=== PATIENT | female | born 1980 ===

== ENCOUNTER → 2021-02-28 09:34 | Outpatient (BNVA) | payer MEDICAID, SELFPAY | PROVIDERS: Visit Provider Physician Assistant ==

== ENCOUNTER → 2021-03-07 08:43 | Outpatient (BNVA) | payer MEDICAID, SELFPAY | PROVIDERS: Visit Provider Surgery ==

== ENCOUNTER 2021-03-08 08:25 | Outpatient (REF) | payer MEDICAID, SELFPAY ==
--- NOTE | ~2021-03-08 | XR_ITS ---
EXAMINATION: XR CHEST CLINICAL INFORMATION: Bariatric service evaluation. E66.01 COMPARISON: None TECHNIQUE: 2 views of the chest were obtained. FINDINGS: The lungs are clear. There is no airspace consolidation or effusion. The costophrenic sulci are well-defined. The heart is normal in size. The hilar and mediastinal contours and bony structures are unremarkable. XR/XR chest 2V IMPRESSION: Unremarkable examination.
--- NOTE | 2021-03-08 09:09 | ECG_ITS ---
Test Reason : E66.01 Blood Pressure : / mmHG Vent. Rate : 066 BPM Atrial Rate : 066 BPM P-R Int : 160 ms QRS Dur : 080 ms QT Int : 424 ms P-R-T Axes : 039 046 036 degrees QTc Int : 444 ms Normal sinus rhythm Normal ECG No previous ECGs available Referred By: Miguel Lemons Electronically Signed By:ASHISH FRAZIER
[2021-03-08 09:43] LABS: MANUAL DIFF FLAG NO
[2021-03-08 09:49] LABS: Basophils Percent Auto 0.7 % (0-2); Eosinophils Absolute Auto 0.2 X10*3/uL (0.0-0.4); Eosinophils Percent Auto 4.2 % (0-4); Hematocrit 36.5 % (37-47); Hemoglobin 11.7 g/dl (12.0-16.0); Imm Gran Abs Auto 0.01 X10*3/uL (0.00-0.03); Imm Gran Pct Auto 0.2 % (0.0-0.4); Lymphocytes Absolute Auto 1.7 X10*3/uL (1.2-4.9); Lymphocytes Percent Auto 30.1 % (20-40); Mean Corpuscular HGB Conc 32.1 g/dl (31.0-35.0); Mean Corpuscular Hemoglobin 28.9 pg (27.0-33.0); Mean Corpuscular Volume 90.1 fL (80-98); Monocytes Absolute Auto 0.6 X10*3/uL (0.1-1.2); Monocytes Percent Auto 10.4 % (2-11); Neutrophils Absolute Auto 3.2 X10*3/uL (2.0-8.3); Neutrophils Percent Auto 54.4 % (45-73); Platelet Count 228 X10*3/uL (160-400); Red Blood Count 4.05 X10*6/uL (4.20-5.50); Red Cell Distribution Width 14.1 % (11.0-16.0); White Blood Count 5.8 X10*3/uL (4.8-10.8)
[2021-03-08 10:02] LABS: Estimated Average Glucose 117 mg/dL; Hemoglobin A1C 116.9153 umol/L; Hemoglobin A1c % 5.7 %
[2021-03-08 10:10] LABS: Alanine Aminotransferase 20 U/L (0-31); Alkaline Phosphatase 46 U/L (39-117); Anion Gap 11 (12-20); Aspartate Amino Transferase 17 U/L (5-31); Bilirubin Total 0.5 mg/dL (0.0-1.0); Blood Urea Nitrogen 18 mg/dL (9-16); C Reactive Protein 0.14 mg/dL (< or = 0.50); Calcium 9.1 mg/dL (8.4-10.2); Carbon Dioxide 26 mmol/L (22-29); Chloride 107 mmol/L (96-108); Cholesterol 207 mg/dL; Estimated Glomerular Filt Rate > 60; Glucose Random 103 mg/dL (60-115); HDL Cholesterol 52 mg/dL; LDL Cholesterol Calculated 143 mg/dl; Sodium 140 mmol/L (135-145); Triglycerides 63 mg/dL
[2021-03-08 10:23] LABS: Ferritin 26 ng/mL (10-122); TSH reflex Free T4 1.06 uIU/mL (0.32-4.0); Vitamin D 25-OH Total 14.6 ng/mL (>30)
[2021-03-08 11:00] LABS: Folate 13.2 ng/mL (> or = 4.0); Vitamin B12 403 pg/mL (200-900)
[2021-03-09 09:12] LABS: Insulin Level Total 18.3 uIU/mL
[2021-03-09 12:46] LABS: Calcium (PTHI) 9.1 mg/dL (8.6-10.2); PTHI 42 pg/mL (14-64)
[2021-03-09 13:36] LABS: H Pylori Breath Test DETECTED (NOT DETECTED)
[2021-03-12 01:26] LABS: Zinc 77 mcg/dL (60-130)
[2021-03-12 13:01] LABS: Vitamin B1 12 nmol/L (8-30)
[2021-03-13 10:32] LABS: Vitamin A 35 mcg/dL (38-98)
== END 2021-03-08 08:26 | disposition home or self-care (01) ==
LOC: HO.LAB 08:25
PROVIDERS: Absent Provider Surgery; PCP Registered Nurse; Visit Provider Physician Assistant
DX: E66.01 Morbid (severe) obesity due to excess calories (principal)
CPT/HCPCS: 36415; 71046; 80053; 80061; 82306; 82607; 82728; 82746; 83013; 83036; 83525; 83970; 84425; 84443; 84590; 84630; 85025; 86140; 93005

== ENCOUNTER → 2021-03-21 14:15 | Outpatient (BNVA) | payer MEDICAID, SELFPAY | PROVIDERS: PCP Registered Nurse; Visit Provider Dietitian, Registered ==

== ENCOUNTER → 2021-04-09 08:19 | Outpatient (BNVA) | payer MEDICAID, SELFPAY | PROVIDERS: PCP Registered Nurse; Visit Provider Surgery ==

== ENCOUNTER → 2021-04-11 08:09 | Outpatient (BNVA) | payer MEDICAID, SELFPAY | PROVIDERS: PCP Registered Nurse; Visit Provider Dietitian, Registered ==

== ENCOUNTER → 2021-05-01 08:08 | Outpatient (BNVA) | payer MEDICAID, SELFPAY | PROVIDERS: PCP Registered Nurse; Visit Provider Surgery ==

== ENCOUNTER → 2021-05-03 08:13 | Outpatient (BNVA) | payer MEDICAID, SELFPAY | PROVIDERS: PCP Registered Nurse; Visit Provider Dietitian, Registered | DX: E66.01 Morbid (severe) obesity due to excess calories (principal) | CPT/HCPCS: 97802 ==

== ENCOUNTER → 2021-06-15 08:29 | Outpatient (BNVA) | payer MEDICAID, SELFPAY | PROVIDERS: PCP Registered Nurse; Visit Provider Surgery ==

== ENCOUNTER → 2021-06-25 08:15 | Outpatient (BNVA) | payer MEDICAID, SELFPAY | PROVIDERS: PCP Registered Nurse; Visit Provider Dietitian, Registered | DX: E66.9 Obesity, unspecified (principal) | CPT/HCPCS: 97803 ==

== ENCOUNTER → 2021-07-16 08:02 | Outpatient (BNVA) | payer MEDICAID, SELFPAY | PROVIDERS: PCP Registered Nurse; Referring Provider Registered Nurse; Visit Provider Dietitian, Registered ==

== ENCOUNTER 2021-09-04 11:47 | Outpatient (REF) | payer MEDICAID, SELFPAY ==
[2021-09-06 12:28] LABS: H Pylori Breath Test Negative (Negative)
== END 2021-09-04 11:48 | disposition home or self-care (01) ==
LOC: CF 11:47
PROVIDERS: Visit Provider Physician Assistant
DX: Z11.0 Encounter for screening for intestinal infectious diseases (principal)
CPT/HCPCS: 36415; 83013; 99211

== ENCOUNTER → 2021-09-18 08:03 | Outpatient (BNVA) | payer MEDICAID, SELFPAY | PROVIDERS: PCP Registered Nurse; Visit Provider Dietitian, Registered ==

== ENCOUNTER 2021-09-25 09:04 | Outpatient (REF) | payer MEDICAID, SELFPAY ==
--- NOTE | ~2021-09-25 | FL_ITS ---
EXAMINATION: XR GI SERIES CLINICAL INFORMATION: Obesity COMPARISON: None TECHNIQUE: Upper GI was performed using thin and thick barium and effervescent granules. FINDINGS: Esophageal motility is normal. No hernia or reflux is seen. The stomach and duodenum are normal. No fold thickening, mass, ulcer or stricture is seen. FLUOROSCOPY TIME: 0.3 minutes DOSE AREA PRODUCT: 4 love per centimeter squared. 16 saved fluoroscopic images. FL/FL upper GI series IMPRESSION: Unremarkable examination.
--- NOTE | ~2021-09-25 | US_ITS ---
EXAMINATION: US COMPLETE ABDOMEN WITH LIVER ELASTOGRAPHY CLINICAL INFORMATION: Obesity COMPARISON: None. TECHNIQUE: Real-time imaging of the abdominal viscera. Noninvasive ultrasound liver fibrosis assessment is performed using Matt ElastPQ point quantification shear wave elastography (pSWE) with a C5-2 MHz transducer. Multiple elastography samples are obtained. FINDINGS: PANCREAS: Normal. The visualized pancreatic head and body are normal in appearance. The remainder of the pancreas is obscured from visualization by the overlying bowel gas. ABDOMINAL AORTA: The proximal and distal aortic segments are normal in caliber. INFERIOR VENA CAVA: Visualized portions are normal. LIVER: There is diffuse increased echogenicity of the liver consistent with fatty infiltration. No focal mass is appreciated. No intrahepatic bile duct dilatation is seen. The right lobe measures 12.3 cm in length. The left lobe measures 7.8 cm in length. Portal flow is hepatopedal Shear wave liver elastography median stiffness is 1.71 m/s (reference: normal median stiffness is 1.3 m/s or less). IQR/median stiffness to assess sampling precision is 0.16 (reference: good quality data set is IQR/median stiffness of 0.15 or less). GALLBLADDER: Normal. The gallbladder is physiologically distended without evidence of stones, sludge, polyps, wall thickening or pericholecystic fluid. COMMON BILE DUCT: Normal in caliber measuring 0.5 cm in diameter. RIGHT KIDNEY: Normal. No hydronephrosis. No renal calculi or focal parenchymal lesions. The kidney measures 9.3 cm in maximum dimension. LEFT KIDNEY: Normal. No hydronephrosis. No renal calculi or focal parenchymal lesions. The kidney measures 10.4 cm in maximum dimension. SPLEEN: Normal. The spleen measures 10.7 cm in maximum dimension. FREE FLUID: None. US/US abdomen comp w elastography IMPRESSION: 1. Increased echogenicity of the liver consistent with fatty infiltration. 2. Liver elastography: Although measurements are suggestive of compensated advanced chronic liver disease, there is statistical variability of the sampling which decreases accuracy. REFERENCE: Society of Radiologists in Ultrasound Liver Stiffness Thresholds (2019): LIVER STIFFNESS THRESHOLDS: *Liver Stiffness equal or less than 1.3 m/s: High probability of being normal. *Liver Stiffness less than 1.7 m/s: In the absence of other known clinical signs, rules out compensated advanced chronic liver disease. *Liver Stiffness 1.7-2.1 m/s: Suggestive of compensated advanced chronic liver disease but need further test for confirmation. *Liver Stiffness over 2.1 m/s: Rules in compensated advanced chronic liver disease. *Liver Stiffness over 2.4 m/s: Suggestive of clinically significant portal hypertension. QUALITY OF DATA SET: *IQR/Median value equal or less than 0.15 implies a quality data set. *IQR/Median value over 0.15 implies a poor quality data set. SIGNIFICANT CHANGE FROM PRIOR EXAM: Significant change if liver stiffness measurement is 10% or greater from prior exam. OTHER CONSIDERATIONS: The stage of liver fibrosis may be overestimated in the setting of acute hepatitis, liver inflammation, elevated liver function tests, hepatic vascular congestion, obstructive cholestasis, non-fasting state, and infiltrative diseases such as amyloidosis and lymphoma. In some patients with NAFLD, the liver stiffness thresholds for compensated advanced chronic liver disease may be lower. In causes other than viral hepatitis and NAFLD, liver stiffness thresholds are not well established.
== END 2021-09-25 09:05 | disposition home or self-care (01) ==
LOC: HO.US 09:04
PROVIDERS: Visit Provider Surgery
DX: E66.01 Morbid (severe) obesity due to excess calories (principal)
CPT/HCPCS: 74240; 76705; 76981

== ENCOUNTER → 2021-09-26 08:18 | Outpatient (BNVA) | payer MEDICAID, SELFPAY | PROVIDERS: PCP Registered Nurse; Visit Provider Surgery ==

== ENCOUNTER → 2021-09-28 08:16 | Outpatient (BNVA) | payer MEDICAID, SELFPAY | PROVIDERS: PCP Registered Nurse; Visit Provider Dietitian, Registered ==

== ENCOUNTER → 2021-10-04 08:01 | Outpatient (BNVA) | payer MEDICAID, SELFPAY | PROVIDERS: PCP Registered Nurse; Referring Provider Surgery; Visit Provider Dietitian, Registered | DX: E66.01 Morbid (severe) obesity due to excess calories (principal) | CPT/HCPCS: 97803 ==

== ENCOUNTER → 2021-10-12 09:11 | Outpatient (BNVA) | payer MEDICAID, SELFPAY | PROVIDERS: PCP Registered Nurse; Referring Provider Registered Nurse; Visit Provider Physician Assistant ==

== ENCOUNTER → 2021-10-15 08:24 | Outpatient (BNVA) | payer MEDICAID, SELFPAY | PROVIDERS: PCP Registered Nurse; Visit Provider Surgery ==

== ENCOUNTER 2021-10-25 11:18 | Inpatient (IN) | payer MEDICAID, SELFPAY ==
[2021-10-15 16:02] VITALS: BMI 39.9
[2021-10-22 10:01] LABS: MANUAL DIFF FLAG NO
[2021-10-22 10:36] LABS: Basophils Percent Auto 0.3 % (0-2); Eosinophils Absolute Auto 0.3 X10*3/uL (0.0-0.4); Eosinophils Percent Auto 3.4 % (0-4); Hematocrit 37.3 % (37.0-47.0); Hemoglobin 12.2 g/dl (12.0-16.0); Imm Gran Abs Auto 0.01 X10*3/uL (0.00-0.03); Imm Gran Pct Auto 0.1 % (0.0-0.4); Lymphocytes Absolute Auto 2.4 X10*3/uL (1.2-4.9); Lymphocytes Percent Auto 32.6 % (20-40); Mean Corpuscular HGB Conc 32.7 g/dl (31.0-35.0); Mean Corpuscular Hemoglobin 29.8 pg (27.0-33.0); Mean Corpuscular Volume 91.2 fL (80.0-98.0); Mean Platelet Volume 12.3 fL (9.4-12.3); Monocytes Absolute Auto 0.7 X10*3/uL (0.1-1.2); Monocytes Percent Auto 8.9 % (2-11); Neutrophils Absolute Auto 4.1 x10*3/uL (2.0-8.3); Neutrophils Percent Auto 54.7 % (45-73); Platelet Count 196 X10*3/uL (160-400); Red Blood Count 4.09 X10*6/uL (4.20-5.50); Red Cell Distribution Width 13.5 % (11.0-16.0); White Blood Count 7.4 X10*3/uL (4.8-10.8)
[2021-10-22 10:41] LABS: INTERNATIONAL NORM RATIO 1.1 (0.9-1.1); Prothrombin Time 12.5 SEC (9.9-13.0)
[2021-10-22 10:44] LABS: Partial Thromboplastin Time 32.2 SEC (24.1-38.0)
[2021-10-22 11:08] LABS: Estimated Average Glucose 117 mg/dL; Hemoglobin A1c % 5.7 %
[2021-10-22 11:09] LABS: Alanine Aminotransferase 18 U/L (0-31); Albumin Level 4.1 g/dL (3.5-5.0); Alkaline Phosphatase 35 U/L (39-117); Anion Gap 13 (12-20); Aspartate Amino Transferase 16 U/L (5-31); Bilirubin Total 0.5 mg/dL (0.0-1.0); Blood Urea Nitrogen 15 mg/dL (9-16); Calcium 9.4 mg/dL (8.4-10.2); Carbon Dioxide 22 mmol/L (22-29); Chloride 108 mmol/L (96-108); Cholesterol 178 mg/dL; Creatinine Clr Calc Pharmacy 99.5; Estimated Glomerular Filt Rate > 60; Glucose Random 86 mg/dL (60-115); HDL Cholesterol 46 mg/dL; LDL Cholesterol Calculated 111 mg/dl; Potassium 3.9 mmol/L (3.3-5.1); Sodium 139 mmol/L (135-145); Triglycerides 109 mg/dL
[2021-10-22 11:31] LABS: Insulin 18 uU/mL (2-29); TSH reflex Free T4 2.04 uIU/mL (0.32-4.0)
--- NOTE | 2021-10-22 15:43 | MHC.SHP ---
Pre-Procedural Eval Section A Date of Service: 10/22/21 The patient is an INPATIENT: Yes The History & Physical has been completed within 30 days and I have reviewed it.: No Section B Chief Complaint: Morbid Severe Obesity Relevant Family History (Specify if Yes): No Relevant Social History: None Present Medications: None Medical History: No relevant PMH History of Previous Operations: No relevant previous surgery Allergies: Allergies Allergy/AdvReac Type Severity Reaction Status Date / Time No Known Allergies Allergy Verified 10/15/21 14:08 Review of Systems Sugical H&P ROS: Negative: Constitution, Cardiovascular, Respiratory, Neurological, Psychiatric, Hem-Onc, Allergic/Immunologic, Gastrointestinal, Genitourinary, Musculoskeletal, Integumentary, Endocrine and Eyes/Ears/Nose/Throat Exam Surgical H&P Exam: Normal: HEENT, Normal: Heart, Normal: Lungs, Normal: Extremities, Normal: Abdomen, Normal: Skin and Normal: Neurological Plan Diagnosis/Plan: Unchanged I have reviewed the history and physical and performed a pertinent physical examination on my patient. No changes have occurred unless specified.
--- NOTE | 2021-10-24 09:20 | HO.ANESPROP2 ---
Documented by User: Aurora Rojas NP 11/02/21 14:29 HPI - Anesthesia Eval Consult details Narrative: 41yo F for Gastrectomy Sleeve, EGD, Possible Diaphragmatic Hernia, Possible Ventral Hernia, Possible open PMFSH Active Problems Active Problems: All Active Problems (Updated 10/14/21 @ 18:18 by Miguel Lemons MD) Mild depression (Acute) Vitamin D deficiency (Acute) Vitamin B12 deficiency (Acute) Anxiety (Acute) Vitamin A deficiency (Acute) H. pylori infection (Acute) Knee pain (Acute) Morbid obesity (Acute) Past Medical History Medical History (Updated 10/25/21 @ 16:53 by Irena Doherty PA-C) H. pylori infection Knee pain Liver fibrosis Morbid obesity Steatosis, liver Vitamin A deficiency Family History Family History Mother Diabetes Arthritis Father Diabetes Hypertension Hyperlipidemia Prostate cancer Sister No problems noted. Sister No problems noted. Son No problems noted. Daughter No problems noted. Daughter No problems noted. Surgical History Surgical History Hx of section Hx of tubal ligation Social History Social History Are you a primary personal care home administrator to a significant other at home: Yes (children ages 5,10,20) Do you presently have visiting nurse or other home services: No Alcohol intake: current Alcohol intake frequency: holidays/special occasions only Patient Tobacco Use Status: Never used Tobacco Meds Allergies Allergy/AdvReac Type Severity Reaction Status Date / Time No Known Allergies Allergy Verified 10/29/21 11:25 Home Medications Medication Instructions Recorded Confirmed Last Taken Type gabapentin 300 mg capsule 1 cap PO BEDTIME 10/15/21 10/29/21 Unknown History acetaminophen 500 mg capsule 1,000 mg PO Q6H PRN cap 10/29/21 10/29/21 Unknown History Exam Exam Date and Time: October 24, 2021 09 Height,Weight and Vital Signs: Height 5 ft 4 in Weight 105.687 kg Pertinent Lab Results Pertinent Lab Results: Laboratory Tests 10/22/21 10/22/21 10/22/21 09:55 09:55 09:55 WBC 7.4 RBC 4.09 L Hgb 12.2 Hct 37.3 MCV 91.2 MCH 29.8 MCHC 32.7 RDW 13.5 Plt Count 196 MPV 12.3 Immature Gran % (Auto) 0.1 Neut % (Auto) 54.7 Lymph % (Auto) 32.6 [place] % (Auto) 8.9 Eos % (Auto) 3.4 Baso % (Auto) 0.3 Lymph # (Auto) 2.4 [place] # (Auto) 0.7 Eos # (Auto) 0.3 Baso # (Auto) 0.0 Abs Immat Gran (auto) 0.01 Absolute Neuts (auto) 4.1 Absolute Nucleated RBC 0.000 Nucleated RBC % (auto) 0.0 PT 12.5 INR 1.1 APTT 32.2 Sodium 139 Potassium 3.9 Chloride 108 Carbon Dioxide 22 Anion Gap 13 BUN 15 Creatinine 0.90 Estim Creat Clear Calc 99.5 Estimated GFR > 60 Random Glucose 86 Estimat Average Glucose Hemoglobin A1c % Insulin Level 18 Calcium 9.4 Total Bilirubin 0.5 AST 16 ALT 18 Alkaline Phosphatase 35 L D C-Reactive Protein 0.10 Total Protein 7.0 Albumin 4.1 Triglycerides 109 Cholesterol 178 LDL Cholesterol, Calc 111 HDL Cholesterol 46 TSH 2.04 Blood Type Antibody Screen 10/22/21 10/22/21 09:55 09:55 WBC RBC Hgb Hct MCV MCH MCHC RDW Plt Count MPV Immature Gran % (Auto) Neut % (Auto) Lymph % (Auto) [place] % (Auto) Eos % (Auto) Baso % (Auto) Lymph # (Auto) [place] # (Auto) Eos # (Auto) Baso # (Auto) Abs Immat Gran (auto) Absolute Neuts (auto) Absolute Nucleated RBC Nucleated RBC % (auto) PT INR APTT Sodium Potassium Chloride Carbon Dioxide Anion Gap BUN Creatinine Estim Creat Clear Calc Estimated GFR Random Glucose Estimat Average Glucose 117 Hemoglobin A1c % 5.7 Insulin Level Calcium Total Bilirubin AST ALT Alkaline Phosphatase C-Reactive Protein Total Protein Albumin Triglycerides Cholesterol LDL Cholesterol, Calc HDL Cholesterol TSH Blood Type O Positive Antibody Screen NEGATIVE Narrative Narrative: EKG 02/2021 Vent. Rate : 066 BPM ? ? Atrial Rate : 066 BPM ?? P-R Int : 160 ms? QRS Dur : 080 ms ? ? QT Int : 424 ms ? ? ? P-R-T Axes : 039 046 036 degrees ?? QTc Int : 444 ms ? Normal sinus rhythm Normal ECG No previous ECGs available Assessment and Plan Assessment Anesthesia Assessment: Chart Reviewed Documented by User: Valerie Esteves MD 10/25/21 12:50 [facility] Past Medical History Medical History (Updated 10/25/21 @ 16:53 by Irena Doherty PA-C) H. pylori infection Knee pain Liver fibrosis Morbid obesity Steatosis, liver Vitamin A deficiency Family History Family History Mother Diabetes Arthritis Father Diabetes Hypertension Hyperlipidemia Prostate cancer Sister No problems noted. Sister No problems noted. Son No problems noted. Daughter No problems noted. Daughter No problems noted. Family history of problems with anesthesia: No Surgical History Surgical History Hx of section Hx of tubal ligation History of Problems with Anesthesia: No Social History Social History Are you a primary personal care home administrator to a significant other at home: Yes (children ages 5,10,20) Do you presently have visiting nurse or other home services: No Alcohol intake: current Alcohol intake frequency: holidays/special occasions only Patient Tobacco Use Status: Never used Tobacco Meds Allergies Allergy/AdvReac Type Severity Reaction Status Date / Time No Known Allergies Allergy Verified 10/29/21 11:25 Home Medications Medication Instructions Recorded Confirmed Last Taken Type gabapentin 300 mg capsule 1 cap PO BEDTIME 10/15/21 10/29/21 Unknown History acetaminophen 500 mg capsule 1,000 mg PO Q6H PRN cap 10/29/21 10/29/21 Unknown History Exam Height,Weight and Vital Signs: Height 5 ft 4 in Weight 105.687 kg Vital Signs Temp Pulse Resp BP Pulse Ox 10/25/21 11:44 98.1 F 81 16 127/78 98 Pertinent Lab Results Pertinent Lab Results: Laboratory Tests 10/22/21 10/22/21 10/22/21 09:55 09:55 09:55 WBC 7.4 RBC 4.09 L Hgb 12.2 Hct 37.3 MCV 91.2 MCH 29.8 MCHC 32.7 RDW 13.5 Plt Count 196 MPV 12.3 Immature Gran % (Auto) 0.1 Neut % (Auto) 54.7 Lymph % (Auto) 32.6 [place] % (Auto) 8.9 Eos % (Auto) 3.4 Baso % (Auto) 0.3 Lymph # (Auto) 2.4 [place] # (Auto) 0.7 Eos # (Auto) 0.3 Baso # (Auto) 0.0 Abs Immat Gran (auto) 0.01 Absolute Neuts (auto) 4.1 Absolute Nucleated RBC 0.000 Nucleated RBC % (auto) 0.0 PT 12.5 INR 1.1 APTT 32.2 Sodium 139 Potassium 3.9 Chloride 108 Carbon Dioxide 22 Anion Gap 13 BUN 15 Creatinine 0.90 Estim Creat Clear Calc 99.5 Estimated GFR > 60 Random Glucose 86 Estimat Average Glucose Hemoglobin A1c % Insulin Level 18 Calcium 9.4 Total Bilirubin 0.5 AST 16 ALT 18 Alkaline Phosphatase 35 L D C-Reactive Protein 0.10 Total Protein 7.0 Albumin 4.1 Triglycerides 109 Cholesterol 178 LDL Cholesterol, Calc 111 HDL Cholesterol 46 TSH 2.04 Blood Type Antibody Screen 10/22/21 10/22/21 09:55 09:55 WBC RBC Hgb Hct MCV MCH MCHC RDW Plt Count MPV Immature Gran % (Auto) Neut % (Auto) Lymph % (Auto) [place] % (Auto) Eos % (Auto) Baso % (Auto) Lymph # (Auto) [place] # (Auto) Eos # (Auto) Baso # (Auto) Abs Immat Gran (auto) Absolute Neuts (auto) Absolute Nucleated RBC Nucleated RBC % (auto) PT INR APTT Sodium Potassium Chloride Carbon Dioxide Anion Gap BUN Creatinine Estim Creat Clear Calc Estimated GFR Random Glucose Estimat Average Glucose 117 Hemoglobin A1c % 5.7 Insulin Level Calcium Total Bilirubin AST ALT Alkaline Phosphatase C-Reactive Protein Total Protein Albumin Triglycerides Cholesterol LDL Cholesterol, Calc HDL Cholesterol TSH Blood Type O Positive Antibody Screen NEGATIVE Laboratory Results - last 24 hr 10/25/21 11:28 COVID-19 (CONNIE) Negative COVID-19 Clin Com See Note Airway Mallampati Class: II TM Dist: >3cm Neck ROM: Full Loose/Missing/Broken Teeth: No Heart: RRR Lungs: CTAB Assessment and Plan Assessment Anesthesia Assessment: Anesthesia Plan Discussed Final Anesthetic Review Family History of Problems with Anesthesia: No History of Problems with Anesthesia: No NPO: Yes ASA Class: III Final Preanesthetic Review: No Changes in Pt Med Stat, Meds/Allgs Chart Reviewed, Consent Obtained/Reviewed and Anes Risks/Benef Reviewed Patient Risk: Intermediate Procedure Risk: Intermediate Assessment/Block/Sedation in SS: Assess/Block/Sedation-SS Anesthetic Plan Anesthetic Plan: GA Disposition: Standard PACU and Inp. Admit - Standard Bed
[2021-10-25] VITALS (22 sets, daily range): BP systolic 112–142; BP diastolic 56–92; PULSE 81–110; RESP 16–24; TEMP 36.4–36.9; O2SAT 97–100
--- NOTE | ~2021-10-25 | XR_ITS ---
EXAMINATION: XR CHEST CLINICAL INFORMATION: Crepitus. COMPARISON: Chest x-ray on 03/08/2021 TECHNIQUE: Frontal view of the chest was obtained. FINDINGS: The cardiomediastinal silhouette is normal in size. There is linear focus of air along the left heart border suspicious for pneumomediastinum. The lung volumes are diminished. No focal areas of consolidation. No pleural effusions or pneumothoraces. There is diffuse subcutaneous air within the chest wall and neck, right greater than left. XR/XR chest 1V IMPRESSION: 1. Suspicion for pneumomediastinum. 2. Diffuse chest wall and neck subcutaneous air. Urgent findings were discussed with Dr. Friedman at 5:30pm.
[2021-10-25] MEDS: Lactated Ringers 1,000 ML 999 ML IV (12:08)
[2021-10-25] MEDS: Lactated Ringers 1,000 ML 100 ML IVCONT ×2 (12:08→19:31)
[2021-10-25 12:10] LABS: COVID-19 Test Negative (Negative); IDNOW Serial# 9DD0AD1C
--- NOTE | 2021-10-25 13:07 | P.BOP_ITS ---
Brief Operative Note Date of Service: 10/25/21 Pre-op diagnosis: Morbid obesity and comorbidities (see below) Post-op diagnosis: same Procedure: INITIAL PATIENT BMI ON PRESENTATION AT OUR OFFICE: 44.5 kg/m2 LAST BMI BEFORE SURGERY: 43 kg/m2 COMORBIDITIES: knee pain, liver steatosis, liver fibrosis The patient participated in an intensive weekly lifestyle ?intervention and exercise program during which the patient ?has lost between the initial office visit and the last preoperative visit 26.2 lbs, or 10.08% of initial actual body weight. The patient met the BMI-criteria for bariatric surgery based on the BMI on initial presentation. The patient should not be penalized for achieving such weight loss because ?it is not sustainable long-term without surgical intervention and it was achieved in preparation for bariatric surgery ?under my direction and based on my published research ([email or web address] and? [email or web address])62630-[email or web address]/pdf ) ?that a 10% preoperative weight loss improves long-term weight loss after surgery and reduces perioperative complications.? Insurance carriers such as [facility] have endorsed my recommendations ?and have included in their policies criteria to include a 10% preoperative weight loss requirement. PROCEDURE: Esophago-gastroscopy, laparoscopic repair of incarcerated diaphragmatic hernia, laparoscopic lysis of adhesions, laparoscopic sleeve gastrectomy and laparoscopic gastropexy INDICATIONS: This is a 41 year-old female who was electively scheduled for laparoscopic, possibly open sleeve gastrectomy. The risks and complications of the procedure were discussed with the patient in advance, particularly the possibility of ; pulmonary embolism; staple line leak; bleeding; GERD; cardiac, pulmonary, or renal complications; as well as long-term problems such as insufficient weight loss, vitamin deficiency, strictures, or ulcers. The patient understood all the risks, and was in agreement to proceed with surgery. DESCRIPTION OF PROCEDURE: After informed consent was obtained from the patient, the patient was given preoperative antibiotics, and was transferred to the operating room. After successful induction of general anesthesia, pneumatic compressive devices were placed on both lower extremities. An upper endoscopy was performed next. The oropharynx and esophagus appeared to be within normal limits. There was a large diaphragmatic hernia present that was not reported at the preoperative upper GI. The stomach was entered. Then after all fluid and air were suctioned and the stomach was fully decompressed, the scope was withdrawn and secured in the mid esophagus. The patient was then prepped and draped in the usual sterile manner, and abdominal access was established at the right upper quadrant with the Celi technique. A 12 mm blunt port was inserted, and the abdomen was insufflated with CO2 to a pressure of 15 mmHg. Under direct visualization, additional ports were placed, specifically two 5 mm Versi-step ports to the left upper quadrant, and a 5 mm Versi-Step port to the right upper quadrant. 1% lidocaine plain was used to infiltrate all port sites as well as all fascia defects. Following that, the patient was placed in a steep reverse Trendelenburg position. An additional 5 mm port was placed to the right flank for the Mediflex retractor that was used to retract the left lobe of the liver. The gastro-esophageal fat pad was opened with the ultrasonic device (Thunderbeat, Olympus) and the anterior esophagus and hiatus were exposed. The angle of His was opened with the ultrasonic device the fundus of the stomach from any diaphragmatic and splenic attachments. I then opened the gastrocolic ligament between the transverse colon and the greater curvature of the stomach with the ultrasonic device to enter the lesser sac and facilitate the ligation of the short gastric vessels. I started at a mid-point along the greater curvature and using the Thunderbeat, all short gastric vessels were divided all the way to the angle of His until the left david was completely dissected at its entirety. I then divided the gastro-colic ligament distally to a distance of about 3-4 cm proximal to the esophagus. There were extensive congenital adhesions between the pancreas and posterior gastric wall. Those were lysed completely with the ultrasonic device. Adhesiol ysis took approximately 45 min to complete. :There was an obvious significant-sized incarcerated hiatal hernia. I continued dissecting along the hiatus toward the left david and the angle of His. I fully mobilized the fat pad that was incarcerated in the hernia. I then continued by dissecting even further into the posterior retro-esophageal space all the way to the angle of His. I continued to mobilize the esophagus into the mediastinum circumferentially. Both vagal nerves were seen and preserved. Dissection was very challenging due to the size of the hernia, large and floppy liver and a large left replaced hepatic artery with additional branches that were recognized and preserved. Despute these difficulties, I was able to have at least 3 to 5 cm of esophagus into the abdomen.? After I completely mobilized the esophagus from both the left and right david and I had a good mobilization of the esophagus circumferentially, I closed the hernia defect with four interrupted #0 Surgidac sutures using the Endo Stitch device, one of which was placed posterior and three sutures anterior to the esophagus. The hernia repair significantly prolonged the operation with a total operative time of 3 hours. ? The stomach was then divided transversely with one Endo SANJUANITA-45 purple, two SANJUANITA- 45 orange loads and four SANJUANITA-60 articulating orange loads using the AEON stapler and loads. Every effort was made that the gastric sleeve had a tubular shape and an even caliber throughout. Once the sleeve resection was completed, the staple line of the gastric sleeve was reinforced with Hemoclips. The resected stomach was retrieved without difficulty from the Celi port. A gastropexy was then performed in order to prevent postoperative GERD and partial gastric volvulus. Several interrupted 2.0 Surgidac sutures were placed between the sleeve's staple line and the previously divided greater omentum and gastro-colic ligament using the Endo-Stitch device. ?An upper endoscopy was performed. There was no narrowing at the GE junction. The scope was easily advanced all the way to the pylorus which was clearly visualized. There was no narrowing anywhere and the sleeve's caliber was even throughout. The sleeve's staple line was inspected and there was no evidence of ischemia, bleeding or dehiscence. At that point the gastroscope was withdrawn from the patient?s mouth while we were decompressing the bowel and the stomach from any remaining air. I looked into the lesser sac to see how the sleeve was situating and it was situating well. There was no bleeding from the staple line, spleen, or short gastric vessels. The Mediflex retractor was removed, and the undersurface of the liver was inspected and there was no bleeding. The patient was placed in supine position. I closed the fascial defect of the 12 mm port site with a figure of eight #1 Polysorb suture. Then 100 cc 0.25 % Marcaine plain with 10 mg of Dexamethasone were used to infiltrate the fascial closure as well as all skin incisions. At this point, the abdomen was deflated, all ports were removed under direct vision, and no bleeding was noted from any of the port sites. The skin incisions were irrigated with saline and were closed with 4-0 absorbable monofilament sutures. Steri-Strips and OpSites were used to cover all incisions. The patient was extubated and was transferred in stable condition to the recovery room for further care. I was present and performed all lebron parts of the procedure. Ms. Doherty was the heel sprayer first. There were no residents to assist with this case. Michael Lemons MD, PhD, FACS Surgeon: Miguel Lemons MD Anesthesia: GETA, MAC and other (TAP block) Was an Patient Coordinator used for this Procedure?: No Patient Coordinator: Irena Doherty Estimated blood loss (mL): 10 Urine output (mL): 0 (No Martinez to gravity) Pathology: other (Stomach) Condition: stable Disposition: PACU
--- NOTE | 2021-10-25 13:12 | PM.PNGS ---
Subjective Subjective Date of Service: 10/26/21 Interval history: Patient has mild incisional pain, but was able to ambulate and use the incentive spirometer. She is tolerating phase 1 bariatric diet Physical Exam Vital Signs: Vital Signs: Last Vital Signs Temp 98.1 F 10/25/21 11:44 Pulse 81 10/25/21 11:44 Resp 16 10/25/21 11:44 BP 127/78 10/25/21 11:44 Pulse Ox 98 10/25/21 11:44 BMI result Body Mass Index 39.9 GI: Inspection: Yes normal to inspection, Yes incision (clean, dry and intact) and Yes obesity Extrem: Right lower extremity: normal to inspection (no calf tenderness) Left lower extremity: normal to inspection (no calf tenderness) Objective Data Active Medications Lactated Ringer's (Lr) 1,000 mls @ 100 mls/hr IVCONT .Q10H SALEEM Last Admin: 10/25/21 12:08 Dose: 100 mls/hr Documented by: CHULA Labs CBC & Chem 7: 10/26/21 05:30 10/26/21 05:30 Labs: Laboratory Results - last 24 hr 10/25/21 11:28 COVID-19 ([facility]) Negative COVID-19 Clin Com See Note Procedures Date of Service Date of Service: 10/26/21 Progress Note: A&P Assessment and plan (1) Morbid obesity: Status: Acute Assessment and Plan: s/p laparoscopic sleeve gastrectomy, lysis of adhesions repair of diaphragmatic hernia, and gastropexy Doing well Check am labs. If OK, will discharge home? (2) Knee pain: Status: Acute (3) Anxiety: Status: Acute (4) Steatosis, liver: Status: Acute (5) Liver fibrosis: Status: Acute (6) Status post repair of paraesophageal diaphragmatic hernia: Status: Acute (7) Diaphragmatic hernia: Status: Acute (8) S/P laparoscopic sleeve gastrectomy: Status: Acute Fall Risk Details Current Medications: Current Medications Lactated Ringer's (Lr) 1,000 mls @ 100 mls/hr IVCONT .Q10H SALEEM Last Admin: 10/25/21 12:08 Dose: 100 mls/hr Documented by: Time Spent With Patient Time: Total time spent is greater than 50% in coordination of care (as documented) at patient's floor/unit and/or counseling patient: Time with patient: less than 15 minutes Quality Stroke Does the patient have a stroke diagnosis?: No VTE Prior VTE?: No VTE Risk Level:: Surgical - moderate VTE Device Contraindication: N/A - Device Ordered VTE Drug Contraindication: Treatment Not Indicated
--- NOTE | 2021-10-25 16:55 | P.DS_ITS ---
DS: Providers Provider Date of Service: 10/26/21 Date of admission: 10/25/21 11:18 Primary care physician: Maddy Weir MD DS: Diagnosis Discharge Diagnosis (1) Morbid obesity: Status: Acute (2) Knee pain: Status: Acute (3) Anxiety: Status: Acute (4) Steatosis, liver: Status: Acute (5) Liver fibrosis: Status: Acute DS: Summary Hospital Course Hospital Course: ADMITTING DIAGNOSIS: morbid obesity DISCHARGE DIAGNOSIS: same, s/p laparoscopic sleeve gastrectomy and repair diaphragmatic hernia PAST SURGICAL HISTORY: none PROCEDURE: upper endoscopy, laparoscopic sleeve gastrectomy and repair of diaphragmatic hernia hernia DISCHARGE SUMMARY: History of Present Illness: The patient is a 41 year-old woman with a BMI of 44.5 kg/m2 and associated co- morbidities as described above. The patient had extensive work-up,lost 23.4 lbs preoperatively and was electively scheduled for laparoscopic, possible open sleeve gastrectomy and gastropexy. Risks and complications of the surgery were discussed with the patient in advance, particularly the possibility of , pulmonary embolism, anastomotic leak, bleeding, bowel injury, GERD, cardiac, renal or pulmonary complications. The patient understood all the risks and was in agreement with the surgical plan. Hospital Course: The patient underwent an uneventful laparoscopic sleeve gastrectomy with gastropexy and repair of diaphragmatic hernia on the day of admission. Postoperatively, the patient was transferred to the surgical floor. The patient received IV Acetaminophen and IV dilaudid for pain control. Patient was started on bariatric phase 1 diet POD #0. On postoperative day one, the patient was feeling well without nausea, vomiting, fevers, or tachycardia. The patient had some mild incisional pain and the abdomen was soft. On the morning of postoperative day one, the patient was continued on 1 ounce of water or ice every half hour. During the day, the patient did fairly well, having some incisional pain, but able to ambulate adequately and to tolerate liquids well. Since the patient is doing well, we decided that the patient was ready to be discharged. The patient was given instructions to follow-up with me next week and to call my office for any fever over 101, persistent abdominal pain, nausea, vomiting, GERD, symptoms of DVT such as calf tenderness, or leg swelling, or pulmonary embolism such as chest pain or shortness of breath. The patient was also instructed to drink 40-60 ounces of liquids per day using the 1-ounce cups. The patient had been given prescriptions for Tylenol for pain, Zofran prn for nausea, and pantoprazole and carafate previously. The patient was encouraged to ambulate and use the incentive spirometer. The patient was allowed to shower, but no baths, and encouraged to stay active at home. All of these instructions were given to the patient personally. All questions were answered and the patient understood all instructions, the instructions were also given to the patient in print. Time Spent with Patient Time attestation: Total time spent providing and/or coordinating discharge services: Discharge coordination time: Less than 30 minutes Quality: Stroke Does the patient have a stroke diagnosis?: No Physical Exam Vital Signs: Vital Signs: Last Vital Signs Temp 98.1 F 10/25/21 11:44 Pulse 81 10/25/21 11:44 Resp 16 10/25/21 11:44 BP 127/78 10/25/21 11:44 Pulse Ox 98 10/25/21 11:44 BMI result Body Mass Index 39.9 DS: Data Data Completed and Pending Pending studies at discharge: Pending at discharge 10/25/21 15:51 Surgical [PTH] Routine Labs on day of discharge: Laboratory Results - last 24 hr 10/25/21 11:28 COVID-19 ([facility]) Negative COVID-19 Clin Com See Note Discharge Plan Discharge Anticipated Discharge Date/Time: 10/26/21 11:52 Patient Disposition: Home, Self-Care Discharge Diagnosis: s/p sleeve gastrectomy and hiatal hernia repair Referrals: Maddy Weir MD [Primary Care Provider] - 1 Week Discharge Medications: New oxycodone-acetaminophen [Percocet] 5-325 mg tablet 1 tab PO Q8H PRN (Reason: severe pain (scale score 7-10)) Qty: 10 RF: 0 Continued lorazepam 0.5 mg tablet 0.5 mg PO BID PRN (Reason: anxiety) Qty: 14 RF: 0 gabapentin 300 mg capsule 1 cap PO BEDTIME RF: 0 pantoprazole 40 mg tablet,delayed release (DR/EC) 40 mg PO DAILY Qty: 30 RF: 2 sucralfate 100 mg/mL suspension 10 ml PO BID Qty: 400 RF: 2 ondansetron HCl [Zofran] 4 mg tablet 4 mg PO Q6H Qty: 20 RF: 0 Discontinued vitamin A 10,000 unit capsule 10,000 unit PO DAILY Qty: 30 RF: 0 vitamin A palmitate 10,000 unit capsule 10,000 unit PO .COMPLEX Qty: 30 RF: 0 mecobalamin (vitamin B12) 1,000 mcg tablet,disintegrating 1,000 mcg sublingual DAILY Qty: 30 RF: 2 polyethylene glycol 3350 [Miralax] 17 gram powder in packet 17 g PO DAILY Qty: 14 RF: 0 Discharge Orders: Discharge Order (Routine); Ordered 10/26/21 Ordered By: Miguel Lemons Diet: other Activity on Discharge: No heavy lifting Stand Alone Forms: Patient Portal Discharge page Care Plan Goals: weight loss Health Concerns: morbid obesity Plan of Treatment: No tub baths, sex or returning to work until discussed at first post op appointment. No exercise, alcohol, tobacco or illegal drug use. Continue to use incentive spirometer hourly while awake. Walk in home for 5- 10 minutes every 2 hours during the first week. Continue phase 1 diet today and start phase 2 diet tomorrow morning. Follow all instructions in the bariatric handbook and call with any questions. 1. Please call your doctor or come back to the emergency room should any new symptoms arise. 2. You will receive a courtesy call from [facility] 24-48 hours after discharge. 3. Activity: abstain from alcohol, practice limited stair climbing, no bending, no driving, no exercise, no illicit substances, no lifting, no sex, no tub bath, no work. 4. Diet: continue as discussed with Dr. Lemons. 5. Dressing Change/Wound Care: Do not change or remove surgical dressings unless they are wet or soiled. 6. Call your doctor if: - Your temperature exceeds 101.5 F - You experience excessive pain or swelling - You have an unexpected reaction to medication - You have excessive bleeding - You experience continued vomiting/nausea - Your incision begins to separate - Your incision shows signs of infection such as increased redness, swelling, excessive pain, heat, or drainage (light blood or clear fluid is normal) 7. General instructions: No lifting greater than 5 lbs for the next 4 weeks[address] driving within 24 hours of taking narcotic pain medications. If you do not move your bowels in the next 2 days, please take milk of magnesia over the counter. Please follow the post op diet and do not advance your diet until you are seen in the office in about 2 weeks. Please walk around your home every hour or two to prevent blood clots from forming in your legs. You do not need to wake from sleeping to walk. Please sleep in a bed or couch to prevent kinking at the hips and knees. 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 You may shower, no hot tubs, baths or swimming pools. Please call the office with any questions or concerns such as increasing abdominal pain, fever, chills, shortness of breath, chest pain, leg pain or swelling, or redness or drainage from your incisions. Do not hesitate to contact the office with any questions at . The patient's medical history has been reviewed and they are considered low risk for post op DVT and therefore DVT prophylaxis is not considered necessary. Travel after surgery was reviewed. The patient has not disclosed any travel plans during the first 30 days after surgery and they have been advised that within the first 30 days after surgery any bus, plane, train or car travel over 2 hours in duration is contraindicated due to the possibility of developing blood clots from immobility. Any travel, needs to include periods of ambulation of 10 minutes in duration every 2 hours. The patient was instructed to discuss any plans for travel during this period with their bariatric surgeon. Assessment: stable s/p sleeve gastrectomy and hiatal hernia repair Discharge Date/Time: 10/26/21 17:00
[2021-10-25] MEDS: HYDROmorphone HCl 0.5 MG/0.5 ML SYRINGE 0.25 MG IVPUSH ×5 (17:09→23:43)
[2021-10-25] MEDS: Famotidine/PF 20 MG/2 ML VIAL IVPUSH ×2 (18:17→20:38)
--- NOTE | 2021-10-25 18:23 | PC.NURSE ---
PHLEBOTOMY AT BEDSIDE TO DRAW LABS.
--- NOTE | 2021-10-25 18:28 | PC.NURSE ---
MESSAGE FROM DR. GARCIA. REPORTS HE REVIEWED XR NORMAL AND EXPECTED PAIN. IN SURGERY PER MD. MEDIASTINUM DISSECTED TO FIX LARGE DIAPHRAGMATIC HERNIA. EXPECT CREPITUS AND PAIN. PER NAINA ROSALES, PATIENT MAY START ON PHASE I DIET AND INDICATED THAT THE CO2 WILL NEED TO RESOLVE ON ITS OWN.
[2021-10-25] MEDS: HYDROmorphone HCl 0.5 MG/0.5 ML SYRINGE IVPUSH (18:36)
[2021-10-25 18:37] LABS: Hematocrit 35.4 % (37.0-47.0); Hemoglobin 11.6 g/dl (12.0-16.0)
[2021-10-25 18:52] LABS: Anion Gap 14 (12-20); Blood Urea Nitrogen 18 mg/dL (9-16); Calcium 9.1 mg/dL (8.4-10.2); Carbon Dioxide 21 mmol/L (22-29); Chloride 107 mmol/L (96-108); Creatinine Clr Calc Pharmacy 98.3; Estimated Glomerular Filt Rate > 60; Glucose Random 130 mg/dL (60-115); Sodium 138 mmol/L (135-145)
[2021-10-25] MEDS: ondansetron HCL 4 MG/2 ML VIAL IVPUSH (19:31)
[2021-10-25] MEDS: ceFAZolin Sodium/Dextrose,Iso 2 GM/50 ML PIGGYBACK IV (19:37)
[2021-10-25] MEDS: 0.9 % Sodium Chloride Flush 3 ML SYRINGE IVFLUSH (20:39)
[2021-10-26] MEDS: LORazepam 2 MG/ML VIAL 0.25 MG IVPUSH ×3 (01:29→14:55)
[2021-10-26] MEDS: ondansetron HCL 4 MG/2 ML VIAL IVPUSH ×2 (02:56→12:36)
[2021-10-26 04:00] VITALS: BP 122/57; PULSE 86; RESP 16; TEMP 36.6; O2SAT 98
[2021-10-26] MEDS: HYDROmorphone HCl 0.5 MG/0.5 ML SYRINGE 0.25 MG IVPUSH ×2 (04:19→06:21)
[2021-10-26] MEDS: Lactated Ringers 1,000 ML 100 ML IVCONT (05:41)
[2021-10-26 05:45] LABS: MANUAL DIFF FLAG NO
[2021-10-26 05:48] LABS: Hematocrit 34.1 % (37.0-47.0); Hemoglobin 11.2 g/dl (12.0-16.0); Imm Gran Abs Auto 0.02 X10*3/uL (0.00-0.03); Imm Gran Pct Auto 0.2 % (0.0-0.4); Lymphocytes Absolute Auto 0.9 X10*3/uL (1.2-4.9); Mean Corpuscular HGB Conc 32.8 g/dl (31.0-35.0); Mean Corpuscular Hemoglobin 29.6 pg (27.0-33.0); Mean Corpuscular Volume 90.2 fL (80.0-98.0); Mean Platelet Volume 12.2 fL (9.4-12.3); Monocytes Absolute Auto 0.7 X10*3/uL (0.1-1.2); Monocytes Percent Auto 8.1 % (2-11); Neutrophils Absolute Auto 7.3 x10*3/uL (2.0-8.3); Neutrophils Percent Auto 81.7 % (45-73); Platelet Count 179 X10*3/uL (160-400); Red Blood Count 3.78 X10*6/uL (4.20-5.50); Red Cell Distribution Width 13.1 % (11.0-16.0); White Blood Count 8.9 X10*3/uL (4.8-10.8)
[2021-10-26] MEDS: Famotidine/PF 20 MG/2 ML VIAL IVPUSH (07:48)
[2021-10-26 08:00] VITALS: BP 129/60; PULSE 73; RESP 17; TEMP 36.1; O2SAT 100
[2021-10-26] MEDS: 0.9 % Sodium Chloride Flush 3 ML SYRINGE IVFLUSH (09:37)
[2021-10-26 12:00] VITALS: BP 125/90; PULSE 89; RESP 18; TEMP 36.4; O2SAT 95
--- NOTE | 2021-10-26 14:11 | HO.POSTANES ---
Post Anesthesia Evaluation Post Anesthesia Evaluation Vital Signs: Vital Signs Temp Pulse Resp BP Pulse Ox 10/26/21 12:00 97.5 F 89 18 125/90 H 95 10/26/21 08:00 97.0 F 73 17 129/60 100 10/26/21 04:00 97.9 F 86 16 122/57 L 98 Anesthesia: General Endotracheal-GETA Mental Status: Awake Pain Control: Satisfactory Nausea/Vomiting: None Hydration: Adequate Anesthesia-Related Issues: No Anes. Related Issues
== END 2021-10-26 17:00 | disposition home or self-care (01) | DRG 403 ==
LOC: HO.SSSA 16:55 → HO.S3 18:08
PROVIDERS: Physician Assistant; Admitting Provider Surgery; PCP Family Medicine; Visit Provider Surgery
PROC: 0DB64Z3 Excision of Stomach, Percutaneous Endoscopic Approach, Vertical (ICD-10-PCS; CPT 43845; principal; 2021-10-25 12:50)
DX: E66.01 Morbid (severe) obesity due to excess calories (principal); K74.00 Hepatic fibrosis, unspecified; K44.0 Diaphragmatic hernia with obstruction, without gangrene; K76.0 Fatty (change of) liver, not elsewhere classified; K66.0 Peritoneal adhesions (postprocedural) (postinfection); F41.9 Anxiety disorder, unspecified; M25.569 Pain in unspecified knee; Z68.41 Body mass index [BMI] 40.0-44.9, adult; Z20.822 Contact with and (suspected) exposure to COVID-19; Z79.899 Other long term (current) drug therapy
CPT/HCPCS: 36415; 71045; 80048; 80053; 80061; 83036; 83525; 84443; 85014; 85018; 85025; 85610; 85730; 86140; 86850; 86900; 86901; 87635; 88307; 88342; 99024; A4649; J0131; J0690; J1100; J1170; J2060; J2250; J2370; J2405; J3010

== ENCOUNTER → 2021-10-29 11:12 | Outpatient (BNVA) | payer MEDICAID, SELFPAY | PROVIDERS: PCP Family Medicine; Referring Provider Family Medicine; Visit Provider Physician Assistant | DX: Z48.815 Encounter for surgical aftercare following surgery on the digestive system (principal); Z98.84 Bariatric surgery status | CPT/HCPCS: 99212 ==

== ENCOUNTER 2021-11-14 11:36 | Emergency (ER) | payer MEDICAID, SELFPAY ==
--- NOTE | ~2021-11-14 | CT_ITS ---
EXAMINATION: CT ABDOMEN AND PELVIS WITHOUT CONTRAST CLINICAL INFORMATION: Pain epigastric status post gastric sleeve COMPARISON: Ultrasound 09/25/2021 TECHNIQUE: Multidetector volumetric imaging was performed from the superior aspect of the liver through the pubic symphysis. Sagittal and coronal reformatted images were obtained on the technologist's workstation. This CT examination was performed using dose optimization techniques as appropriate, variously including the following: *Automated exposure control *Adjustment of mA and/or kV according to patient size (this includes techniques or standardized protocols for targeted exams where dose is matched to indication/reason for exam; i.e. extremities or head) *Use of iterative reconstruction technique DLP: 592 mGy-cm FINDINGS: LUNG BASES: The visualized lung bases are unremarkable. LIVER, GALLBLADDER, AND BILIARY TREE: Subtle liver lesions noted within the dome of the liver. Ill-defined focus measuring approximately 17 mm question as well as a low-density well-defined low attenuation focus more anteriorly measuring 5 mm subcapsular location segment 8 noted. Subtle geographic areas of low attenuation suggests fatty infiltration. No biliary ductal dilatation. The gallbladder is unremarkable with no evidence of radiopaque gallstones, gallbladder wall thickening, or obvious pericholecystic inflammatory changes. PANCREAS: Unremarkable. SPLEEN: Unremarkable. ADRENAL GLANDS: Unremarkable. KIDNEYS AND URETERS: The kidneys are normal in size, shape, and attenuation. No hydronephrosis, hydroureter, or calculi seen. No perinephric stranding. BLADDER: Unremarkable. GASTROINTESTINAL TRACT: Gastric sleeve surgical changes noted. No fluid collections. No obstruction. No small bowel or colonic abnormality. Normal appendix. ABDOMINAL WALL: No significant hernia is appreciated. LYMPH NODES: Normal. VASCULAR: Unremarkable. PELVIC VISCERA: Unremarkable. Tubal ligation clips noted. OSSEOUS STRUCTURES: Unremarkable. CT/CT abdomen pelvis wo con IMPRESSION: 1. No obstruction. Gastric sleeve surgical changes appears grossly satisfactory. No IV contrast assess for any portal venous thrombosis. No acute bowel pathology. 2. Liver changes consistent with hepatic steatosis. 2 subtle lesions as above. In light of nonvisualization on recent ultrasound, consider elective MRI for further assessment. Fleischner guidelines were followed.
[2021-11-14 11:41] VITALS: BP 133/77; PULSE 84; RESP 18; TEMP 37; O2SAT 99; BMI 38.9
--- NOTE | 2021-11-14 13:12 | ED.ABDPAIN ---
HPI - Abdominal Pain General Chief Complaint: Abdominal Pain Stated Complaint: Abd Pain Time Seen by Provider: 11/14/21 13:11 Source: patient Mode of arrival: ambulatory Limitations: no limitations History of Present Illness HPI narrative: 41 y/o female with history of obesity, s/p lap sleeve gastrectomy and large hiatial hernia repair 10/25/21 who presents to the ER with ongoing epigastric pain and sensation of liquid and pills getting stuck. She reports this has been happening chronically, even before the surgery. After the surgery her symptoms persisted and are worsening now. She states she cannot tolerate her protein shakes because they are too thick and she feels like they get stuck. It takes several hours for the pain to go away. She last saw bariatric 4 days after her surgery and told him about her symptoms. She was reassured ?that nothing is wrong.? She was no longer prescribe pain medication from the bariatric office, she used her primary care provider for pain medication however they were on vacation this week and she does know what to do about the pain. She denies any vomiting episodes but has some associated nausea. She is only able to take minimal amounts of Gatorade at a time. She is worried about dehydration. MD elicited complaint: abdominal pain Pertinent past history: other (Recent bariatric surgery) Onset (ago): week(s) Pain Consistency: intermittent Location: epigastric Severity: severe Quality: stabbing Radiation: bilateral flank Migration to: no migration Exacerbating factors: eating Relieving factors: nothing Associated symptoms: nausea Related Data Patient : No Home Medications Medication Instructions Recorded Confirmed gabapentin 300 mg capsule 1 cap PO BEDTIME 10/15/21 10/29/21 acetaminophen 500 mg capsule 1,000 mg PO Q6H PRN cap 10/29/21 10/29/21 Previous Rx's Medication Instructions Recorded lorazepam 0.5 mg tablet 0.5 mg PO BID PRN #14 tab 10/14/21 ondansetron HCl 4 mg tablet 4 mg PO Q6H #20 tab 10/15/21 (Zofran) pantoprazole 40 mg tablet,delayed 40 mg PO DAILY #30 tab 10/15/21 release sucralfate 100 mg/mL oral 10 ml PO BID #400 ml 10/15/21 suspension oxycodone-acetaminophen 5 mg-325 1 tab PO Q8H PRN #10 tab 10/26/21 mg tablet (Percocet) dicyclomine 10 mg capsule 10 mg PO TID PRN #30 cap 11/14/21 Allergies Allergy/AdvReac Type Severity Reaction Status Date / Time No Known Allergies Allergy Verified 11/14/21 11:41 Review of Systems Review of Systems Constitutional: No Fever, No Chills ENT/Mouth: No sore throat, No Rhinorrhea, No Swallowing Difficulty Cardiovascular: No Chest Pain, No SOB, No Orthopnea, No Edema Respiratory: No Cough, No Sputum, No Wheezing, No dyspnea Gastrointestinal: + Nausea, No Vomiting, No Diarrhea, + abdominal Pain Genitourinary: No Dysuria, No Urinary Frequency, No Hematuria Musculoskeletal: No joint pain, No Myalgias Skin: No Skin Lesions, No rash Neuro: No Weakness, No Numbness, No Dizziness, No Headache Psych: + Anxiety/Panic, No Depression Heme/Lymph: No Bruising, No Lymphadenopathy Endocrine: No Polyuria, No Polydipsia Physical Exam Vital Signs: Vital Signs: Last Vital Signs Temp 98.0 F 11/14/21 15:20 Pulse 61 11/14/21 15:20 Resp 16 11/14/21 15:20 BP 99/63 11/14/21 15:20 Pulse Ox 100 11/14/21 15:20 BMI result Body Mass Index 38.9 Appearance: Alert. Oriented X3. No acute distress. Eyes: Pupils equal, round and reactive to light. ENT: Pharynx normal. Neck: Normal inspection. Neck supple. CVS: Normal heart rate and rhythm. Pulses normal. Respiratory: No respiratory distress. Breath sounds normal. Abdomen: Small well-healing surgical scars on the upper abdomen. Obese, Soft and nontender. +BS x4 Skin: Skin warm and dry. Normal skin color. Normal skin turgor. No rashes. Extremities: No lower extremity edema. Neuro: Oriented X 3. No motor deficit. No sensory deficit. Course Course Course Narrative: 41-year-old female with a history of recent bariatric surgery on October 25 who presents with epigastric pain and sensation that liquids and pills are getting stuck. Will get CT scan for further evaluation. Will gently hydrate with IV fluids. Will discuss with bariatric surgery. Reevaluation(s) Reevaluation #1: Lab workup is unremarkable. Urinalysis negative for infection. CT scan of the abdomen showing no obstruction, gastric sleeve surgical changes appear grossly satisfactory. Chronic liver changes consistent with hepatic steatosis. Will d/w bariatric surgery Reevaluation #2: Spoke with Faraz Singh from bariatrics who is recommending PPI and carafate, anxiolysis, and thinning out the shakes with water. no additional narcotics required at this time. patient asking for medication for spasm will give trial of bentyl. stable for d/c with plan to follow up with bariatrics - has appointment on 11/27. Consultations Consultation #1: Bariatrics - Faraz Singh PAChris MDM - Abdominal Pain Lab Data Result diagrams: 11/14/21 13:11/14/21 13: Labs: Lab Results 11/14/21 11/14/21 11/14/21 Range/Units 13: 13: 13: WBC 6.7 (4.8-10.8) X10*3/uL RBC 4.24 (4.20-5.50) X10*6/uL Hgb 12.3 (12.0-16.0) g/dl Hct 38.2 (37.0-47.0) % MCV 90.1 (80.0-98.0) fL MCH 29.0 (27.0-33.0) pg MCHC 32.2 (31.0-35.0) g/dl RDW 13.0 (11.0-16.0) % Plt Count 201 (160-400) X10*3/uL MPV 13.0 H (9.4-12.3) fL Immature Gran % (Auto) Cancelled Neut % (Auto) Cancelled Lymph % (Auto) Cancelled [place] % (Auto) Cancelled Eos % (Auto) Cancelled Baso % (Auto) Cancelled Lymph # (Auto) Cancelled [place] # (Auto) Cancelled Eos # (Auto) Cancelled Baso # (Auto) Cancelled Abs Immat Gran (auto) Cancelled Absolute Neuts (auto) Cancelled Absolute Nucleated RBC 0.000 (0.0-0.012) X10*3/uL Nucleated RBC % (auto) 0.0 (0.0-0.2) /100WBC Neutrophils % (Manual) 64 (45-73) % Band Neutrophils % 0 L (3-5) % Lymphocytes % (Manual) 27 (20-40) % Monocytes % (Manual) 7 (2-11) % Eosinophils % (Manual) 2 (0-4) % Abs Neuts (Manual) 4.3 (2.0-8.3) X10*3/uL Lymphocytes # (Manual) 1.8 (1.2-4.9) X10*3/uL Monocytes # (Manual) 0.5 (0.1-1.2) X10*3/uL Eosinophils # (Manual) 0.1 (0.0-0.4) X10*3/uL Platelet Estimate NORMAL (NORMAL) Plt Morphology Comment NORMAL RBC Morphology NOTED Ovalocytes 1+ (5-14) /OIF [place] Cells 1+ (0-2) /OIF Acanthocytes (Spur) 1+ (0-2) /OIF Sodium 141 (135-145) mmol/L Potassium 3.9 (3.3-5.1) mmol/L Chloride 109 H (96-108) mmol/L Carbon Dioxide 26 (22-29) mmol/L Anion Gap 10 L (12-20) BUN 15 (9-16) mg/dL Creatinine 0.86 (0.5-1.4) mg/dL Estim Creat Clear Calc 98.9 Estimated GFR > 60 Random Glucose 96 (60-115) mg/dL Calcium 9.8 D (8.4-10.2) mg/dL Magnesium 2.2 (1.6-2.6) mg/dL Total Bilirubin 0.7 (0.0-1.0) mg/dL Direct Bilirubin 0.2 (0.0-0.5) mg/dL AST 25 D (5-31) U/L ALT 37 H (0-31) U/L Alkaline Phosphatase 40 (39-117) U/L Total Protein 7.5 (6.5-8.0) g/dL Albumin 4.2 (3.5-5.0) g/dL Urine Color Urine Appearance Urine pH (5.0-8.0) Ur Specific [place] (1.005-1.025) Urine Protein (NEG-TRACE) MG/DL Urine Glucose (UA) (NEG) MG/DL Urine Ketones (NEG) MG/DL Urine Blood (NEG) Urine Nitrite (NEG) Ur Leukocyte Esterase (NEG) Urine RBC (0) /HPF Urine WBC (0-4) /HPF Ur Squamous Epith Cells /LPF Urine Bacteria /LPF Urine Mucus /LPF Urine Test (NEGATIVE) COVID-19 (CONNIE) Negative (Negative) COVID-19 Clin Com See Note 11/14/21 11/14/21 Range/Units 13:22 13:22 WBC (4.8-10.8) X10*3/uL RBC (4.20-5.50) X10*6/uL Hgb (12.0-16.0) g/dl Hct (37.0-47.0) % MCV (80.0-98.0) fL MCH (27.0-33.0) pg MCHC (31.0-35.0) g/dl RDW (11.0-16.0) % Plt Count (160-400) X10*3/uL MPV (9.4-12.3) fL Immature Gran % (Auto) Neut % (Auto) Lymph % (Auto) [place] % (Auto) Eos % (Auto) Baso % (Auto) Lymph # (Auto) [place] # (Auto) Eos # (Auto) Baso # (Auto) Abs Immat Gran (auto) Absolute Neuts (auto) Absolute Nucleated RBC (0.0-0.012) X10*3/uL Nucleated RBC % (auto) (0.0-0.2) /100WBC Neutrophils % (Manual) (45-73) % Band Neutrophils % (3-5) % Lymphocytes % (Manual) (20-40) % Monocytes % (Manual) (2-11) % Eosinophils % (Manual) (0-4) % Abs Neuts (Manual) (2.0-8.3) X10*3/uL Lymphocytes # (Manual) (1.2-4.9) X10*3/uL Monocytes # (Manual) (0.1-1.2) X10*3/uL Eosinophils # (Manual) (0.0-0.4) X10*3/uL Platelet Estimate (NORMAL) Plt Morphology Comment RBC Morphology Ovalocytes /OIF [place] Cells /OIF Acanthocytes (Spur) /OIF Sodium (135-145) mmol/L Potassium (3.3-5.1) mmol/L Chloride (96-108) mmol/L Carbon Dioxide (22-29) mmol/L Anion Gap (12-20) BUN (9-16) mg/dL Creatinine (0.5-1.4) mg/dL Estim Creat Clear Calc Estimated GFR Random Glucose (60-115) mg/dL Calcium (8.4-10.2) mg/dL Magnesium (1.6-2.6) mg/dL Total Bilirubin (0.0-1.0) mg/dL Direct Bilirubin (0.0-0.5) mg/dL AST (5-31) U/L ALT (0-31) U/L Alkaline Phosphatase (39-117) U/L Total Protein (6.5-8.0) g/dL Albumin (3.5-5.0) g/dL Urine Color YELLOW Urine Appearance CLEAR Urine pH 7.0 (5.0-8.0) Ur Specific [place] 1.015 (1.005-1.025) Urine Protein 1+ H (NEG-TRACE) MG/DL Urine Glucose (UA) NEG (NEG) MG/DL Urine Ketones 15 (NEG) MG/DL Urine Blood NEG (NEG) Urine Nitrite NEG (NEG) Ur Leukocyte Esterase NEG (NEG) Urine RBC 1-4 (0) /HPF Urine WBC 0-2 (0-4) /HPF Ur Squamous Epith Cells 2+ /LPF Urine Bacteria NONE /LPF Urine Mucus 4+ /LPF Urine Test NEGATIVE (NEGATIVE) COVID-19 (CONNIE) (Negative) COVID-19 Clin Com Critical Care Time Critical Care Time Critical Care Time: No Discharge Plan Discharge Clinical Impression: Abdominal pain Qualifiers: Abdominal location: epigastric Qualified Code(s): R10.13 - Epigastric pain Patient Disposition: Home, Self-Care Instructions: Nutrition after Bariatric Surgery (DC) Additional Instructions: Your lab workup today was normal. Your CT scan showed no obstruction or abnormality from your surgery. Bariatrics recommending thinning out your shakes with 4 ounces of water and drink it slowly over 3 hours. No additional narcotic pain medication is recommended at this time. Continue your carafate and protonix - it is very important you take these medications as prescribed. Continue your anxity medication as directed Follow up with Bariatrics in the office early next week. Tu examen de laboratorio de hoy fue normal. Forman tomograf?a computarizada no mostr? ninguna obstrucci?n o anomal?a debido a forman cirug?a. Bariatr?a recomienda diluir tacho batidos con 4 onzas de agua y beberlo lentamente beth 3 horas. No se recomienda juan diego?n analg?sico narc?christiano adicional en cara momento. Contin?e con forman carafato y protonix; es muy importante que tome estos medicamentos seg?n lo prescrito. Contin?e con forman medicamento para la ansiedad seg?n las indicaciones Lio un seguimiento con Bariatrics en la oficina a principios de la pr?xima semana. Prescriptions: New dicyclomine 10 mg capsule 10 mg PO TID PRN (Reason: abdominal pain) Qty: 30 RF: 0 No Action lorazepam 0.5 mg tablet 0.5 mg PO BID PRN (Reason: anxiety) Qty: 14 RF: 0 gabapentin 300 mg capsule 1 cap PO BEDTIME RF: 0 oxycodone-acetaminophen [Percocet] 5-325 mg tablet 1 tab PO Q8H PRN (Reason: severe pain (scale score 7-10)) Qty: 10 RF: 0 pantoprazole 40 mg tablet,delayed release (DR/EC) 40 mg PO DAILY Qty: 30 RF: 2 sucralfate 100 mg/mL suspension 10 ml PO BID Qty: 400 RF: 2 ondansetron HCl [Zofran] 4 mg tablet 4 mg PO Q6H Qty: 20 RF: 0 acetaminophen 500 mg capsule 1,000 mg PO Q6H PRNRF: 0 Referrals: Irena Doherty PA-C [Physician [employer] Service Tech] - 2 days [facility] Past Medical History Medical History (Updated 11/14/21 @ 15:53 by NAINA Valenzuela) Anxiety H. pylori infection Hernia Knee pain Liver fibrosis Mild depression Morbid obesity Steatosis, liver Vitamin A deficiency Vitamin B12 deficiency Vitamin D deficiency Surgical History Hx of section Hx of tubal ligation S/P gastric sleeve procedure Family History Family History Mother Diabetes Arthritis Father Diabetes Hypertension Hyperlipidemia Prostate cancer Sister No problems noted. Sister No problems noted. Son No problems noted. Daughter No problems noted. Daughter No problems noted. Social History Social History Are you a primary primary care md to a significant other at home: Yes (children ages 5,10,20) Do you presently have visiting nurse or other home services: No Alcohol intake: current Alcohol intake frequency: holidays/special occasions only Patient Tobacco Use Status: Never used Tobacco Advance Directives: No Advance Directives Information Provided: Yes Patient : No
[2021-11-14 13:30] LABS: Hematocrit 38.2 % (37.0-47.0); Hemoglobin 12.3 g/dl (12.0-16.0); Mean Corpuscular HGB Conc 32.2 g/dl (31.0-35.0); Mean Corpuscular Volume 90.1 fL (80.0-98.0); Platelet Count 201 X10*3/uL (160-400); Red Blood Count 4.24 X10*6/uL (4.20-5.50); WBC ABN SCTR FOR CBC 1
[2021-11-14 13:38] LABS: Appearance Urine CLEAR; Color Urine YELLOW; Glucose Urine UA NEG (NEG); Leukocyte Esterase Urine NEG (NEG); Nitrite Urine NEG (NEG); Specific Gravity - Urine 1.015 (1.005-1.025); UACC Culture Trigger NO; Urine Blood NEG (NEG); Urine Ketones 15 MG/DL (NEG); Urine Protein 1+ MG/DL (NEG-TRACE)
[2021-11-14 13:41] LABS: UPreg QC Valid YES; Urine Pregnancy NEGATIVE (NEGATIVE)
[2021-11-14 13:50] LABS: Mucus Urine 4+ /LPF; Squamous Epithelial Cell Urine 2+ /LPF; WBC Urine 0-2 /HPF (0-4)
[2021-11-14 13:51] LABS: Alanine Aminotransferase 37 U/L (0-31); Albumin Level 4.2 g/dL (3.5-5.0); Alkaline Phosphatase 40 U/L (39-117); Anion Gap 10 (12-20); Aspartate Amino Transferase 25 U/L (5-31); Bilirubin Direct 0.2 mg/dL (0.0-0.5); Bilirubin Total 0.7 mg/dL (0.0-1.0); Blood Urea Nitrogen 15 mg/dL (9-16); Calcium 9.8 mg/dL (8.4-10.2); Carbon Dioxide 26 mmol/L (22-29); Chloride 109 mmol/L (96-108); Creatinine Clr Calc Pharmacy 98.9; Estimated Glomerular Filt Rate > 60; Glucose Random 96 mg/dL (60-115); Magnesium 2.2 mg/dL (1.6-2.6); Potassium 3.9 mmol/L (3.3-5.1); Sodium 141 mmol/L (135-145); Total Protein 7.5 g/dL (6.5-8.0)
[2021-11-14 13:56] LABS: Eosinophils Percent Manual 2 % (0-4); Lymphocytes Percent Manual 27 % (20-40); Monocytes Percent Manual 7 % (2-11); Neutrophils Percent Manual 64 % (45-73)
[2021-11-14 13:57] LABS: Acanthocytes 1+ (0-2) /OIF; Ovalocytes 1+ (5-14) /OIF; RBC Morphology NOTED
[2021-11-14 13:58] LABS: Burr Cells 1+ (0-2) /OIF; Platelet Estimate NORMAL (NORMAL); Platelet Morphology Comment NORMAL
[2021-11-14 13:59] LABS: Eosinophils Absolute Manual 0.1 X10*3/uL (0.0-0.4); Lymphocytes Absolute Manual 1.8 X10*3/uL (1.2-4.9); Monocytes Absolute Manual 0.5 X10*3/uL (0.1-1.2); White Blood Count 6.7 X10*3/uL (4.8-10.8)
[2021-11-14 14:13] LABS: COVID-19 Test Negative (Negative)
[2021-11-14 14:29] LABS: Band Neutrophils Percent 0 % (3-5); Neutrophils Absolute Manual 4.3 X10*3/uL (2.0-8.3)
[2021-11-14] MEDS: 0.9 % Sodium Chloride 1,000 ML 999 ML IVCONT (14:35)
[2021-11-14 15:20] VITALS: BP 99/63; PULSE 61; RESP 16; TEMP 36.7; O2SAT 100
[2021-11-14] MEDS: Ketorolac Tromethamine 30 MG/ML VIAL IVPUSH (15:54)
== END 2021-11-14 17:04 | disposition home or self-care (01) ==
PROVIDERS: Physician Assistant; Emergency Provider Emergency Medicine; PCP Nurse Practitioner
DX: R10.13 Epigastric pain (principal); Z20.822 Contact with and (suspected) exposure to COVID-19; Z79.899 Other long term (current) drug therapy
CPT/HCPCS: 36415; 74176; 80048; 80076; 81001; 81025; 83735; 85007; 85027; 87635; 96361; 96374; 99284; J1885

== ENCOUNTER 2021-11-20 07:26 | Outpatient (REF) | payer MEDICAID, SELFPAY ==
--- NOTE | ~2021-11-20 | CT_ITS ---
EXAMINATION: CT ABDOMEN AND PELVIS WITH CONTRAST CLINICAL INFORMATION: Pain. Status post gastric sleeve. COMPARISON: CT abdomen/pelvis dated from 11/14/2021. TECHNIQUE: Multidetector volumetric images were obtained from the superior aspect of the liver through the pubic symphysis following administration 85 mL of Omnipaque 350 intravenous contrast. Sagittal and coronal reformatted images were obtained on the technologist's workstation. Oral contrast: Yes This CT examination was performed using dose optimization techniques as appropriate, variously including the following: *Automated exposure control *Adjustment of mA and/or kV according to patient size (this includes techniques or standardized protocols for targeted exams where dose is matched to indication/reason for exam; i.e. extremities or head) *Use of iterative reconstruction technique DLP: 792 mGy-cm FINDINGS: LUNG BASES: No focal consolidation or pleural effusion. LIVER, GALLBLADDER, AND BILIARY TREE: The liver is normal in size, shape and attenuation. In the hepatic dome there is a 1.8 cm enhancing lesion (3:9) which appears in continuity with branches of the right portal and hepatic veins when assessed on coronal images (5:47) and could potentially represent a vascular shunt. There is a too small to characterize hypoattenuating lesion in the periphery of the right hepatic lobe measuring 0.8 cm (3:12). The gallbladder is within normal limits. There is no biliary ductal dilatation. PANCREAS: Unremarkable. SPLEEN: Unremarkable. ADRENAL GLANDS: Unremarkable. KIDNEYS AND URETERS: The kidneys are normal in size, shape, and attenuation. No hydronephrosis, hydroureter, or calculi seen. No perinephric stranding. BLADDER: Underdistended and therefore suboptimally assessed. No significant perivesical fat stranding. GASTROINTESTINAL TRACT: Redemonstration of postsurgical changes following gastric sleeve without evidence of leak or obstruction. The stomach and the small bowel are nondilated. No evidence of active inflammatory bowel changes. Normal appendix. ABDOMINAL WALL: No significant hernia is appreciated. LYMPH NODES: No lymphadenopathy by size criteria. VASCULAR: Unremarkable. PELVIC VISCERA: Tubal ligation clips. There is a 1.5 cm corpus luteal cyst in the left ovary (5:32). No suspicious pelvic lesions. Increased but still small amount of free fluid in the cul-de-sac which is likely physiologic. OSSEOUS STRUCTURES: No acute or aggressive osseous abnormalities. CT/CT abdomen pelvis w con IMPRESSION: No acute intra-abdominal or pelvic abnormalities to explain the patient's symptoms. Indeterminate liver lesions as above; one of which could potentially represent a vascular shunt and another of which likely represents a cyst. However, further characterization with an elective abdominal MR is recommended.
[2021-11-20] MEDS: Barium Sulfate Oral (Mocha) 450 ML ORAL.SUSP 900 ML PO (10:30)
[2021-11-20] MEDS: iohexoL 350 MG/ML 100 ML INFUS..BTL IV (10:30)
== END 2021-11-20 07:27 | disposition home or self-care (01) ==
LOC: HO.CT 07:26
PROVIDERS: Visit Provider Physician Assistant
DX: R10.9 Unspecified abdominal pain (principal); Z87.19 Personal history of other diseases of the digestive system; Z98.890 Other specified postprocedural states; Z98.84 Bariatric surgery status
CPT/HCPCS: 74177; Q9967

== ENCOUNTER → 2021-11-27 09:51 | Outpatient (BNVA) | payer MEDICAID, SELFPAY | PROVIDERS: PCP Family Medicine; Referring Provider Nurse Practitioner; Visit Provider Physician Assistant | DX: E66.9 Obesity, unspecified (principal); F41.9 Anxiety disorder, unspecified; Z98.84 Bariatric surgery status; Z98.890 Other specified postprocedural states; Z87.19 Personal history of other diseases of the digestive system; Z68.36 Body mass index [BMI] 36.0-36.9, adult | CPT/HCPCS: 99212 ==

== ENCOUNTER → 2021-12-31 10:07 | Outpatient (BNVA) | payer MEDICAID, SELFPAY | PROVIDERS: PCP Family Medicine; Referring Provider Family Medicine; Visit Provider Physician Assistant | DX: E66.9 Obesity, unspecified (principal); Z98.84 Bariatric surgery status; Z87.19 Personal history of other diseases of the digestive system; Z98.890 Other specified postprocedural states; Z68.34 Body mass index [BMI] 34.0-34.9, adult | CPT/HCPCS: 99212 ==

== ENCOUNTER → 2022-02-11 11:59 | Outpatient (BNVA) | payer MEDICAID, SELFPAY | PROVIDERS: PCP Family Medicine; Visit Provider Physician Assistant | DX: E66.9 Obesity, unspecified (principal); Z98.84 Bariatric surgery status; Z68.34 Body mass index [BMI] 34.0-34.9, adult | CPT/HCPCS: 99212 ==

== ENCOUNTER → 2022-03-13 08:03 | Outpatient (BNVA) | payer MEDICAID, SELFPAY | PROVIDERS: PCP Family Medicine; Visit Provider Physician Assistant | DX: Z13.89 Encounter for screening for other disorder (principal) ==

== ENCOUNTER → 2022-08-01 12:21 | Outpatient (BNVA) | payer MEDICAID, SELFPAY | PROVIDERS: PCP Family Medicine; Referring Provider Family Medicine; Visit Provider Physician Assistant | DX: R10.9 Unspecified abdominal pain (principal); Z98.84 Bariatric surgery status | CPT/HCPCS: 99202; 99212 ==

== ENCOUNTER 2022-08-27 10:04 | Outpatient (REF) | payer MEDICAID, SELFPAY ==
[2022-08-27 10:18] LABS: MANUAL DIFF FLAG NO
[2022-08-27 11:38] LABS: Basophils Percent Auto 0.8 % (0-2); Eosinophils Absolute Auto 0.1 X10*3/uL (0.0-0.4); Eosinophils Percent Auto 2.7 % (0-4); Hematocrit 35.3 % (37.0-47.0); Hemoglobin 11.4 g/dl (12.0-16.0); Imm Gran Abs Auto 0.01 X10*3/uL (0.00-0.03); Imm Gran Pct Auto 0.2 % (0.0-0.4); Lymphocytes Percent Auto 38.6 % (20-40); Mean Corpuscular HGB Conc 32.3 g/dl (31.0-35.0); Mean Corpuscular Volume 89.8 fL (80.0-98.0); Monocytes Absolute Auto 0.7 X10*3/uL (0.1-1.2); Monocytes Percent Auto 13.1 % (2-11); Neutrophils Absolute Auto 2.3 x10*3/uL (2.0-8.3); Neutrophils Percent Auto 44.6 % (45-73); Platelet Count 157 X10*3/uL (160-400); Red Blood Count 3.93 X10*6/uL (4.20-5.50); Red Cell Distribution Width 13.6 % (11.0-16.0); White Blood Count 5.1 X10*3/uL (4.8-10.8)
[2022-08-27 12:19] LABS: Alanine Aminotransferase 14 U/L (0-31); Albumin Level 4.2 g/dL (3.5-5.0); Alkaline Phosphatase 43 U/L (39-117); Anion Gap 13 (12-20); Aspartate Amino Transferase 14 U/L (5-31); Bilirubin Total 0.4 mg/dL (0.0-1.0); Blood Urea Nitrogen 16 mg/dL (9-16); Calcium 9.1 mg/dL (8.4-10.2); Carbon Dioxide 26 mmol/L (22-29); Chloride 106 mmol/L (96-108); Estimated Glomerular Filt Rate > 60; Glucose Random 84 mg/dL (60-115); Potassium 3.8 mmol/L (3.3-5.1); Sodium 141 mmol/L (135-145); Total Protein 6.8 g/dL (6.5-8.0)
== END 2022-08-27 10:05 | disposition home or self-care (01) ==
LOC: HO.LAB 10:04
PROVIDERS: Visit Provider Physician Assistant
DX: K52.9 Noninfective gastroenteritis and colitis, unspecified (principal)
CPT/HCPCS: 36415; 80053; 85025

== ENCOUNTER 2022-08-28 09:57 | Outpatient (REF) | payer MEDICAID, SELFPAY | END 2022-08-28 09:58 | disposition home or self-care (01) | LOC: HO.XRAY 09:57 | PROVIDERS: Visit Provider Physician Assistant | DX: Z13.89 Encounter for screening for other disorder (principal) ==

== ENCOUNTER 2022-08-29 13:56 | Day surgery (SDC) | payer MEDICAID, SELFPAY ==
--- NOTE | 2022-08-28 13:24 | P.CONAN_ITS ---
Documented by User: Aurora Rojas NP 08/28/22 13:26 HPI - Anesthesia Eval Consult details Narrative: 42yo F for Upper Endoscopy s/p gastric sleeve 10/2021 [facility] Active Problems Active Problems: All Active Problems (Updated 11/27/21 @ 11:08 by Irena Doherty PA-C) Obesity (Acute) Abdominal pain (Acute) Anxiety (Acute) S/P laparoscopic sleeve gastrectomy (Acute) Diaphragmatic hernia (Acute) Status post repair of paraesophageal diaphragmatic hernia (Acute) Liver fibrosis (Acute) Steatosis, liver (Acute) Morbid obesity (Acute) Past Medical History Medical History Anxiety H. pylori infection Hernia Knee pain Liver fibrosis Mild depression Morbid obesity Steatosis, liver Vitamin A deficiency Vitamin B12 deficiency Vitamin D deficiency Family History Family History Mother Diabetes Arthritis Father Diabetes Hypertension Hyperlipidemia Prostate cancer Sister No problems noted. Sister No problems noted. Son No problems noted. Daughter No problems noted. Daughter No problems noted. Family history of problems with anesthesia: No Surgical History Surgical History Hx of section Hx of tubal ligation S/P gastric sleeve procedure History of Problems with Anesthesia: No Social History Social History (Updated 08/01/22 @ 13:05 by Mica Sanchez PA-C) Are you a primary patient centered care specialist to a significant other at home: Yes (children ages 5,10,20) Do you presently have visiting nurse or other home services: No Alcohol intake: current Alcohol intake frequency: does not drink Patient Tobacco Use Status: Never used Tobacco Use of substances other than those prescribed or required for medical reasons: No Are you DNR?: No Advance Directives: No Advance Directives Information Provided: Yes Current occupational status: unemployed Meds Allergies Allergy/AdvReac Type Severity Reaction Status Date / Time No Known Allergies Allergy Verified 08/01/22 12:46 Home Medications Medication Instructions Recorded Confirmed Last Taken Type gabapentin 300 mg capsule 1 cap PO BEDTIME 10/15/21 08/01/22 Unknown History tramadol 50 mg tablet 50 mg PO DAILY 02/11/22 08/01/22 Unknown History zolpidem 10 mg tablet 10 mg PO BEDTIME PRN 02/11/22 08/01/22 Unknown History sertraline 100 mg tablet 100 mg PO DAILY 08/01/22 08/01/22 Unknown History Exam Exam Date and Time: August 28, 2022 1324 Pertinent Lab Results Pertinent Lab Results: Laboratory Tests 08/27/22 08/27/22 10:17 10:17 WBC 5.1 Hgb 11.4 L Hct 35.3 L Plt Count 157 L Sodium 141 Potassium 3.8 Chloride 106 Carbon Dioxide 26 BUN 16 Creatinine 0.78 Assessment and Plan Assessment Anesthesia Assessment: Chart Reviewed Final Anesthetic Review Family History of Problems with Anesthesia: No History of Problems with Anesthesia: No Documented by User: Jaycob Maciel MD 08/29/22 15:27 [facility] Past Medical History Medical History Anxiety H. pylori infection Hernia Knee pain Liver fibrosis Mild depression Morbid obesity Steatosis, liver Vitamin A deficiency Vitamin B12 deficiency Vitamin D deficiency Family History Family History Mother Diabetes Arthritis Father Diabetes Hypertension Hyperlipidemia Prostate cancer Sister No problems noted. Sister No problems noted. Son No problems noted. Daughter No problems noted. Daughter No problems noted. Surgical History Surgical History Hx of section Hx of tubal ligation S/P gastric sleeve procedure Social History Social History (Updated 08/01/22 @ 13:05 by Mica Sanchez PA-C) Are you a primary patient centered care specialist to a significant other at home: Yes (children ages 5,10,20) Do you presently have visiting nurse or other home services: No Alcohol intake: current Alcohol intake frequency: does not drink Patient Tobacco Use Status: Never used Tobacco Use of substances other than those prescribed or required for medical reasons: No Are you DNR?: No Advance Directives: No Advance Directives Information Provided: Yes Current occupational status: unemployed Meds Allergies Allergy/AdvReac Type Severity Reaction Status Date / Time No Known Allergies Allergy Verified 08/01/22 12:46 Home Medications Medication Instructions Recorded Confirmed Last Taken Type gabapentin 300 mg capsule 1 cap PO BEDTIME 10/15/21 08/01/22 Unknown History tramadol 50 mg tablet 50 mg PO DAILY 02/11/22 08/01/22 Unknown History zolpidem 10 mg tablet 10 mg PO BEDTIME PRN 02/11/22 08/01/22 Unknown History sertraline 100 mg tablet 100 mg PO DAILY 08/01/22 08/01/22 Unknown History Exam Airway Mallampati Class: II TM Dist: >3cm Neck ROM: Full Assessment and Plan Assessment Anesthesia Assessment: Anesthesia Plan Discussed and Smoking Cess. Discussed Final Anesthetic Review NPO: Yes ASA Class: II Final Preanesthetic Review: No Changes in Pt Med Stat and Consent Obtained/Reviewed Patient Risk: Low Procedure Risk: Low Anesthetic Plan Anesthetic Plan: MAC: Disposition: Standard PACU
[2022-08-29] VITALS (8 sets, daily range): BP systolic 102–121; BP diastolic 56–80; PULSE 62–77; RESP 12–18; TEMP 36.7–36.9; O2SAT 99–100; BMI 28.3
--- NOTE | 2022-08-29 14:07 | P.HPSUR_ITS ---
Pre-Procedural Eval Section A Date of Service: 08/29/22 Section B Chief Complaint: ABD PAIN Details of Present Illness: pain since sleeve gastrectomy 10/2021 Relevant Family History (Specify if Yes): No Relevant Social History: None Present Medications: see Short Stay Collaborative assessment Medical History: Significant History (Anxiety H. pylori infection Hernia Knee pain Liver fibrosis Mild depression Morbid obesity Steatosis, liver Vitamin A deficiency Vitamin B12 deficiency Vitamin D deficiency) History of Previous Operations: Relevant previous surgery/procedure and date(s) (Hx of section Hx of tubal ligation S/P gastric sleeve procedure) Allergies: Allergies Allergy/AdvReac Type Severity Reaction Status Date / Time No Known Allergies Allergy Verified 08/01/22 12:46 Review of Systems Sugical H&P ROS: Negative: Constitution, Cardiovascular, Respiratory, Neurological, Psychiatric, Hem-Onc, Allergic/Immunologic, Gastrointestinal, Genitourinary, Musculoskeletal, Integumentary, Endocrine and Eyes/Ears/Nose/Thro at Exam Surgical H&P Exam: Normal: HEENT, Normal: Heart, Normal: Lungs, Normal: Extremities, Normal: Abdomen, Normal: Skin and Normal: Neurological Plan Diagnosis/Plan: Unchanged I have reviewed the history and physical and performed a pertinent physical examination on my patient. No changes have occurred unless specified.
[2022-08-29] MEDS: Lactated Ringers 1,000 ML 100 ML IVCONT (14:34)
--- NOTE | 2022-08-29 14:54 | W.PM.OPN ---
Operative Note Operative Note Date of Service: 08/29/22 Narrative: Procedure Description: EGD Indication: [] Anesthesia: MAC FLEXIBLE TRANSORAL UPPER GASTROINTESTINAL ENDOSCOPY UPPER ENDOSCOPY Consent: Indications for the procedure and potential complications of bleeding, perforation, reaction to medications and missed diagnosis were discussed with the patient and informed consent was obtained. Instrument: Olympus GIF H 190 J mid size upper endoscope Monitoring: Vital signs and clinical assessment, continuous EKG monitoring, Pulse oximetry, Carbon Dioxide monitoring and blood pressure monitoring were done throughout the procedure. Procedure: The patient was placed in the left lateral decubitis position and pre-procedure medications were administered and a bite block was placed. The endoscope was inserted into the mouth and advanced under direct vision to the third part of duodenum. A careful inspection was made as the upper endoscope was withdrawn including a retroflexed examination of the proximal stomach; Findings and interventions are described below. Findings: Larynx:normal Esophagus: GE junction at 37 cm, diaphragm hiatus at 37 cm, mild esophagitis, bx taken from GEJ and distal esophagus Stomach: mild patchy gastric erythema. Biopsies were obtained. Grade 2 flap valve on retroflexed examination of the cardia. pylorus was tight, dilated with balloon to 19 mm, no tear seen. post surgical changes from prior sleeve gastrectomy noted, with stenosis in proximal stomach, dilated using balloon to 19 mm, no tear seen. Duodenum: Normal bulb and descending duodenum, bx taken Intervention: Biopsies as noted above, balloon dilation Impression/Findings: gastric stenosis esophagitis PLAN: if ongoing sx ba swallow with pill study might need rigid balloon dilation if ongoing sx may need pain assessment to r/o myofascial component to pain
[2022-08-29] MEDS: traMADoL HCL 50 MG TABLET PO (15:59)
== END 2022-08-29 18:00 ==
LOC: HO.SSS 13:57
PROVIDERS: PCP Nurse Practitioner; Visit Provider Internal Medicine Gastroenterology
PROC: 0DJ08ZZ Inspection of Upper Intestinal Tract, Via Natural or Artificial Opening Endoscopic (ICD-10-PCS; CPT 43235; principal; 2022-08-29 15:20)
DX: R10.9 Unspecified abdominal pain (principal); K95.89 Other complications of other bariatric procedure; K31.2 Hourglass stricture and stenosis of stomach; K31.1 Adult hypertrophic pyloric stenosis; K20.80 Other esophagitis without bleeding; Z98.84 Bariatric surgery status; K44.9 Diaphragmatic hernia without obstruction or gangrene; K76.0 Fatty (change of) liver, not elsewhere classified; E55.9 Vitamin D deficiency, unspecified; E50.9 Vitamin A deficiency, unspecified; E53.8 Deficiency of other specified B group vitamins; F41.1 Generalized anxiety disorder; F32.9 Major depressive disorder, single episode, unspecified; Z79.899 Other long term (current) drug therapy
CPT/HCPCS: 43245; 43239; 88305; 88342; C1726

== ENCOUNTER → 2022-09-06 12:08 | Outpatient (BNVA) | payer MEDICAID, SELFPAY | PROVIDERS: PCP Nurse Practitioner; Referring Provider Nurse Practitioner; Visit Provider Physician Assistant Surgical | DX: R10.9 Unspecified abdominal pain (principal); Z98.84 Bariatric surgery status | CPT/HCPCS: 99212 ==

== ENCOUNTER → 2022-12-09 11:04 | Outpatient (BNVA) | payer MEDICAID, SELFPAY | PROVIDERS: PCP Nurse Practitioner; Visit Provider Internal Medicine Gastroenterology | DX: R10.13 Epigastric pain (principal); F41.9 Anxiety disorder, unspecified; Z90.3 Acquired absence of stomach [part of] | CPT/HCPCS: 99212 ==

== ENCOUNTER 2023-03-03 09:17 | Outpatient (REF) | payer MEDICAID, SELFPAY ==
--- NOTE | ~2023-03-03 | FL_ITS ---
EXAMINATION: FL BARIUM SWALLOW CLINICAL INFORMATION: Status post EGD with dilation. Previous gastric surgery. COMPARISON: None available. TECHNIQUE: Barium swallow examination is performed using fluoroscopic evaluation in addition to multiple fluoroscopic spot views. The patient is imaged both upright and prone and using both thick and thin sulfate along with effervescent granules. Fluoroscopy time: 2.1 minutes DAP: 15.3 Gy-cm2. Images: 72. FINDINGS: Following oral administration of thick barium and barium-coated turkey in upright view, there is normal progression of bolus from the oral cavity through the pharynx and, esophagus and into the stomach. The gastroesophageal junction is widely patent. On oral administration of barium tablet in upright view, there is normal spontaneous passage through the esophagus into the stomach. On upright limited imaging, there is evidence of previous gastric reduction surgery with moderate narrowing in the midsegment on several images. In addition, there is increased mucosal thickening in the duodenal bulb and gastric fundus likely secondary to gastric hyperacidity. FL/FL barium swallow IMPRESSION: There is moderate narrowing of the midsegment of the stomach. Whether this is intentional or unintentional is not known. Patient had previous surgery for gastric reduction Increased mucosal thickening and irregularity seen in the duodenal bulb and the fundus likely secondary to gastric hyperacidity. Patient points to area area of pain in the duodenal bulb region on upright view. Esophageal motility and esophageal mucosal pattern is normal.
== END 2023-03-03 09:18 | disposition home or self-care (01) ==
LOC: HO.XRAY 09:17
PROVIDERS: Visit Provider Physician Assistant
DX: R10.13 Epigastric pain (principal); Z98.84 Bariatric surgery status
CPT/HCPCS: 74220

== ENCOUNTER → 2023-04-11 11:06 | Outpatient (BNVA) | payer MEDICAID, SELFPAY | PROVIDERS: PCP Registered Nurse; Visit Provider Internal Medicine Gastroenterology | DX: R10.13 Epigastric pain (principal) | CPT/HCPCS: 99212 ==

== ENCOUNTER → 2023-05-06 11:10 | Outpatient (BNVA) | payer MEDICAID, SELFPAY | PROVIDERS: PCP Registered Nurse; Visit Provider Surgery | DX: R10.13 Epigastric pain (principal); Z98.84 Bariatric surgery status | CPT/HCPCS: 99212 ==

== ENCOUNTER 2023-12-24 12:16 | Outpatient (REF) | payer MEDICAID, SELFPAY | END 2023-12-24 12:17 | disposition home or self-care (01) | LOC: HO.HHCL 12:16 | PROVIDERS: Visit Provider Nurse Practitioner | DX: R22.1 Localized swelling, mass and lump, neck (principal) | CPT/HCPCS: 36415; 84443 ==

== ENCOUNTER 2024-03-17 09:44 | Outpatient (REF) | payer MEDICAID, SELFPAY ==
[2024-03-17 11:32] LABS: MANUAL DIFF FLAG NO
[2024-03-17 11:46] LABS: Basophils Percent Auto 0.4 % (0-2); Eosinophils Absolute Auto 0.2 X10*3/uL (0.0-0.4); Eosinophils Percent Auto 3.6 % (0-4); Hematocrit 34.4 % (37.0-47.0); Hemoglobin 10.9 g/dl (12.0-16.0); Imm Gran Abs Auto 0.01 X10*3/uL (0.00-0.03); Imm Gran Pct Auto 0.2 % (0.0-0.4); Lymphocytes Absolute Auto 1.4 X10*3/uL (1.2-4.9); Lymphocytes Percent Auto 29.5 % (20-40); Mean Corpuscular HGB Conc 31.7 g/dl (31.0-35.0); Mean Corpuscular Hemoglobin 28.3 pg (27.0-33.0); Mean Corpuscular Volume 89.4 fL (80.0-98.0); Mean Platelet Volume 12.5 fL (9.4-12.3); Monocytes Absolute Auto 0.4 X10*3/uL (0.1-1.2); Monocytes Percent Auto 8.1 % (2-11); Neutrophils Absolute Auto 2.7 x10*3/uL (2.0-8.3); Neutrophils Percent Auto 58.2 % (45-73); Platelet Count 212 X10*3/uL (160-400); Red Blood Count 3.85 X10*6/uL (4.20-5.50); Red Cell Distribution Width 14.7 % (11.0-16.0); White Blood Count 4.7 X10*3/uL (4.8-10.8)
[2024-03-17 12:08] LABS: Estimated Average Glucose 120 mg/dL; Hemoglobin A1c % 5.8 % (<6.0)
[2024-03-17 12:19] LABS: Alanine Aminotransferase 18 U/L (0-31); Albumin Level 3.7 g/dL (3.5-5.0); Alkaline Phosphatase 47 U/L (39-117); Anion Gap 9 (12-20); Aspartate Amino Transferase 21 U/L (5-31); Bilirubin Total 0.4 mg/dL (0.0-1.0); Blood Urea Nitrogen 12 mg/dL (9-16); Calcium 8.8 mg/dL (8.4-10.2); Carbon Dioxide 26 mmol/L (22-29); Chloride 107 mmol/L (96-108); Cholesterol 180 mg/dL (<200); Estimated Glomerular Filt Rate > 60; Glucose Random 94 mg/dL (60-115); HDL Cholesterol 63 mg/dL (>40); Iron 62 mcg/dL (30-160); LDL Cholesterol Calculated 103 mg/dL (<100); Percent Iron Saturation 19 % (15-50); Potassium 3.8 mmol/L (3.3-5.1); Sodium 138 mmol/L (135-145); Total Iron Binding Capacity 318 mcg/dL (228-428); Total Protein 7.1 g/dL (6.5-8.0); Triglycerides 70 mg/dL (<150); Unsaturated Iron Binding 256 ug/dL
[2024-03-17 12:36] LABS: Free T4 (Free Thyroxine) 0.72 ng/dL (0.71-1.85)
[2024-03-17 12:41] LABS: Folate 9.4 ng/mL (> or = 4.0); Vitamin B12 432 pg/mL (200-900)
[2024-03-17 14:26] LABS: CT PCR NOT DETECTED (Not Detect.); NG PCR NOT DETECTED (Not Detect.)
[2024-03-18 05:40] LABS: HBS Num1 114.93 mIU/mL (0-7.99); HBsAGNum1 0.31 S/CO (0.00-0.99); HIV AB/AG Nonreactive (Nonreactive); HIV Num 1 0.06 S/CO (0.00-0.99); Hepatitis B Core Antibody Nonreactive (Nonreactive); Hepatitis B Surface Antigen Negative (Negative); ~HepC Num1 0.19 S/CO (0.00-0.79); ~Hepatitis B Surface Antibody REACTIVE (Nonreactive); ~Hepatitis C Antibody Nonreactive (Nonreactive)
[2024-03-18 10:53] LABS: RPR Rapid Plasma Reagin NON-REACTIVE (NON-REACTIVE)
== END 2024-03-17 09:45 | disposition home or self-care (01) ==
LOC: HO.HHCL 09:44
PROVIDERS: Visit Provider Nurse Practitioner
DX: R22.1 Localized swelling, mass and lump, neck (principal); E66.3 Overweight; Z11.3 Encounter for screening for infections with a predominantly sexual mode of transmission; Z98.890 Other specified postprocedural states
CPT/HCPCS: 0353U; 36415; 80053; 80061; 82607; 82746; 83036; 83540; 83735; 84439; 85025; 86592; 86704; 86706; 86803; 87340; 87389

== ENCOUNTER 2024-05-14 16:21 | Outpatient (REF) | payer MEDICAID, SELFPAY ==
[2024-05-14 17:53] LABS: MANUAL DIFF FLAG NO
[2024-05-14 17:59] LABS: Basophils Percent Auto 0.4 % (0-2); Eosinophils Absolute Auto 0.2 X10*3/uL (0.0-0.4); Eosinophils Percent Auto 2.4 % (0-4); Hematocrit 34.1 % (37.0-47.0); Hemoglobin 10.9 g/dl (12.0-16.0); Imm Gran Abs Auto 0.02 X10*3/uL (0.00-0.03); Imm Gran Pct Auto 0.3 % (0.0-0.4); Immature Retic Fraction 7.6 % (3.0-15.9); Lymphocytes Absolute Auto 2.7 X10*3/uL (1.2-4.9); Lymphocytes Percent Auto 39.3 % (20-40); Mean Corpuscular Hemoglobin 28.4 pg (27.0-33.0); Mean Corpuscular Volume 88.8 fL (80.0-98.0); Mean Platelet Volume 12.7 fL (9.4-12.3); Monocytes Absolute Auto 0.9 X10*3/uL (0.1-1.2); Monocytes Percent Auto 12.7 % (2-11); Neutrophils Percent Auto 44.9 % (45-73); Platelet Count 208 X10*3/uL (160-400); Red Blood Count 3.84 X10*6/uL (4.20-5.50); Red Cell Distribution Width 15.1 % (11.0-16.0); Reticulocyte Percent 0.6 % (0.5-1.8); Reticulocytes Absolute 0.023 X10*6/uL (0.026-0.095); White Blood Count 6.8 X10*3/uL (4.8-10.8)
[2024-05-15 12:25] LABS: Bacterial Vaginosis PCR NEGATIVE (Negative); Candida Group PCR NOT DETECTED (Not Detect); Candida glab krusei PCR NOT DETECTED (Not Detect); Trichomonas vaginalis PCR NOT DETECTED (Not Detect)
[2024-05-15 12:55] LABS: CT PCR NOT DETECTED (Not Detect.); NG PCR NOT DETECTED (Not Detect.)
[2024-05-17 09:02] LABS: HBS Num1 120.36 mIU/mL (0-7.99); HBc Num1 0.21 S/CO (0.00-0.79); HBsAGNum1 0.25 S/CO (0.00-0.99); HIV AB/AG Nonreactive (Nonreactive); HIV Num 1 0.05 S/CO (0.00-0.99); Hepatitis B Core Antibody Nonreactive (Nonreactive); Hepatitis B Surface Antigen Negative (Negative); ~Hepatitis B Surface Antibody REACTIVE (Nonreactive); ~Hepatitis C Antibody Nonreactive (Nonreactive)
== END 2024-05-14 16:22 | disposition home or self-care (01) ==
LOC: HO.HHCL 16:21
PROVIDERS: Visit Provider Nurse Practitioner
DX: D64.9 Anemia, unspecified (principal); N93.9 Abnormal uterine and vaginal bleeding, unspecified; Z11.3 Encounter for screening for infections with a predominantly sexual mode of transmission
CPT/HCPCS: 0352U; 0353U; 36415; 85025; 85045; 86704; 86706; 86803; 87340; 87389

== ENCOUNTER 2024-05-24 12:49 | Outpatient (AMB) | payer MEDICAID, SELFPAY ==
--- NOTE | 2024-05-24 12:52 | A.OFFVIS_ITS ---
Vital Signs 05/24/24 12:55 Height 5 ft 3 in Weight 152 lb 1.903 oz BMI 26.9 BP 105/67 Blood Pressure Location Lt brachial Position Sitting Pulse 70 Intake Visit Reasons: stomach pains r/s from 03/29 Intake Note: Tracy presents in the office as a follow up for stomach pains. CC: Pains in the stomach, more diarrhea the past few days. She feels like she might have lactose intolerance. Allergies No Known Allergies Allergy (Verified 05/24/24 12:57) HPI HPI stomach pains r/s from 03/29: Details: 44 yr old f here for f/u RECAP: initially saw [facility] s/p bariatric surgery--sleeve gastrectomy 10/2021- she eats slow- she avoids eating- she has epigastric pain-she feels like a cramp in the epigastrium- always after food- EGD 08/2022;with balloon dilation of proximal stomach and pylorus, balloon dilation was done to 19 mm Ba swallow: 02/2023 There is moderate narrowing of the midsegment of the stomach. Whether this is intentional or unintentional is not known. Patient had previous surgery for gastric reduction Increased mucosal thickening and irregularity seen in the duodenal bulb and the fundus likely secondary to gastric hyperacidity. Patient points to area area of pain in the duodenal bulb region on upright view. Esophageal motility and esophageal mucosal pattern is normal. INTERIM: she has ongoing pain with food as it goes thru stomach, she has cramps she has nausea no vomiting she tried bentyl, and it helped for the first few weeks, but stopped may have lactose intolerance EXAM: GENERAL: The patient is thin VITAL SIGNS:see workflow HEENT: Nonicteric sclerae, PERRLA, EOMI. Oropharynx clear. Moist mucous membranes. Conjunctivae appear well perfused. No thyroid mass. CHEST: Chest wall is nontender. HEART: Regular rate and rhythm without murmurs. LUNGS: Clear to auscultation bilaterally. ABDOMEN: Soft, positive bowel sounds, tender epigastrium, no organomegaly.no flank tenderness SKIN: No rash, no excessive bruising, petechiae, or purpura. NEUROLOGIC: Cranial nerves II-XII intact without motor/sensory deficit. 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 pylori infection Knee pain Morbid obesity Surgical History Hx of endoscopy Hx of bladder endoscopy S/P gastric sleeve procedure Hx of tubal ligation Hx of section Family History Mother Diabetes Arthritis Father Diabetes Hypertension Hyperlipidemia Prostate cancer Sister No problems noted. Sister No problems noted. Son No problems noted. Daughter No problems noted. Daughter No problems noted. 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,10,20) Do you presently have visiting nurse or other home services: No Alcohol intake: current Alcohol intake frequency: does not drink Comment: previously medicated with tramadol Patient Tobacco Use Status: Never used Tobacco Current occupational status: unemployed Physical Exam Vital Signs: Last Vital Signs Pulse 70 05/24/24 12:55 BP 105/67 05/24/24 12:55 BMI result Body Mass Index 26.9 Assessment & Plan Assessment & Plan (1) Postprandial epigastric pain: Code(s): R10.13 - Epigastric pain Category: Medical Plan: see above Orders: Orders US [facility] Today R10.13 - Epigastric pain Medications: New nortriptyline 10 mg PO BEDTIME 30 caps 1RF hyoscyamine sulfate 0.125 mg PO BID-QID PRN 60 tabs 0RF dyspepsia Coding Level of Care Code Est Pt Level 4 (65305) Diagnoses Postprandial epigastric pain R10.13
[2024-05-24 12:55] VITALS: BP 105/67; PULSE 70; BMI 26.9
== END 2024-05-24 13:38 | disposition home or self-care (01) ==
PROVIDERS: PCP Registered Nurse; Visit Provider Internal Medicine Gastroenterology
DX: R10.13 Epigastric pain (principal)
CPT/HCPCS: 99214

== ENCOUNTER → 2024-05-24 12:49 | Outpatient (BNVA) | payer MEDICAID, SELFPAY | PROVIDERS: PCP Registered Nurse; Visit Provider Internal Medicine Gastroenterology | DX: R10.13 Epigastric pain (principal) | CPT/HCPCS: 99212 ==

== ENCOUNTER 2024-06-02 13:04 | Outpatient (REF) | payer MEDICAID, SELFPAY ==
[2024-06-07 11:44] LABS: Naloxone NEGATIVE
== END 2024-06-02 13:05 | disposition home or self-care (01) ==
LOC: HO.HHCLNP 13:04
PROVIDERS: Visit Provider Nurse Practitioner
DX: R10.13 Epigastric pain (principal)
CPT/HCPCS: 80348; 80362

== ENCOUNTER 2024-06-07 11:32 | Outpatient (REF) | payer MEDICAID, SELFPAY ==
--- NOTE | ~2024-06-07 | US_ITS ---
CLINICAL INDICATION: Rule out SMA or celiac compression TECHNIQUE: Real-time ultrasound examination of the aorta and mesenteric arteries was attempted of including duplex Doppler evaluation of the origins of the celiac, superior mesenteric and inferior mesenteric arteries. FINDINGS: The visualized portion of the abdominal aorta does not demonstrate obvious plaque. Peak systolic velocity in the abdominal aorta measures 131.7 cm/sec proximal to the SMA, and 99.3 cm/sec distal to the SMA. Celiac artery: Inspiration supine: 246.1 cm/sec Inspiration erect: 176.2 cm/sec Expiration supine: 276.5 cm/sec Expiration erect: 254.4 cm/sec Superior mesenteric artery: Proximal: 493.3 cm/sec Mid: 105.6 cm/sec Distal: 132.4 cm/sec Inferior mesenteric artery: 103 cm/sec Splenic artery: 83.8 cm/sec Hepatic artery: 77.8 cm/sec US/US SMA IMPRESSION: 1. Elevated peak systolic velocity in the proximal SMA consistent with greater than 70% stenosis. 2. Elevated velocities in the celiac artery, relieved during inspiration when standing. Findings consistent with median arcuate ligament compression.
== END 2024-06-07 11:33 | disposition home or self-care (01) ==
LOC: HO.US 11:32
PROVIDERS: PCP Registered Nurse; Visit Provider Internal Medicine Gastroenterology
DX: R10.13 Epigastric pain (principal)
CPT/HCPCS: 93976

== ENCOUNTER 2024-06-17 11:21 | Day surgery (SDC) | payer MEDICAID, SELFPAY ==
[2024-06-15 12:25] VITALS: BMI 26.9
--- NOTE | 2024-06-16 12:06 | HO.ANESPROP2 ---
Documented by User: Aurora Rojas NP 06/16/24 12:07 HPI - Anesthesia Eval Consult details Narrative: 44yo F for Upper Endoscopy with Dilitation PMFSH Active Problems Active Problems: All Active Problems Postprandial epigastric pain (Acute) Obesity (Acute) Abdominal pain (Acute) Anxiety (Acute) S/P laparoscopic sleeve gastrectomy (Acute) Diaphragmatic hernia (Acute) Status post repair of paraesophageal diaphragmatic hernia (Acute) Liver fibrosis (Acute) Steatosis, liver (Acute) Morbid obesity (Acute) Past Medical History Medical History Anxiety Hernia Liver fibrosis Steatosis, liver Vitamin B12 deficiency Vitamin D deficiency Mild depression Vitamin A deficiency H. pylori infection Knee pain Morbid obesity Family History Family History Mother Diabetes Arthritis Father Diabetes Hypertension Hyperlipidemia Prostate cancer Sister No problems noted. Sister No problems noted. Son No problems noted. Daughter No problems noted. Daughter No problems noted. 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,10,20) Do you presently have visiting nurse or other home services: No Alcohol intake: current Alcohol intake frequency: holidays/special occasions only Comment: previously medicated with tramadol Patient Tobacco Use Status: Never used Tobacco Tobacco use type: Smokeless Tobacco Use of substances other than those prescribed or required for medical reasons: No Are you DNR?: No Advance Directives: No Advance Directives Information Provided: Yes Recently lost weight without trying: No Nutrition Risks: No Nutritional Risk Current occupational status: unemployed Meds Allergies Allergy/AdvReac Type Severity Reaction Status Date / Time No Known Allergies Allergy Verified 05/24/24 12:57 Home Medications ?Medication ?Instructions ?Recorded ?Confirmed ?Last Taken ?Type gabapentin 300 mg capsule 1 cap PO BEDTIME 10/15/21 09/10/22 Unknown History tramadol 50 mg tablet 50 mg PO DAILY 02/11/22 09/10/22 Unknown History zolpidem 10 mg tablet 10 mg PO BEDTIME PRN 02/11/22 09/10/22 Unknown History clonidine HCl 0.1 mg tablet 0.1 mg PO BID anxiety 04/11/23 Unknown History lidocaine 5 % topical patch 1 - 2 patch topical Q12H PRN pain 04/11/23 Unknown History Exam Height,Weight and Vital Signs: Height 5 ft 3 in Weight 68.946 kg Pertinent Lab Results Pertinent Lab Results: Laboratory Tests 03/17/24 05/14/24 09:47 16:23 WBC 6.8 Hgb 10.9 L Hct 34.1 L Plt Count 208 Sodium 138 Potassium 3.8 Chloride 107 Carbon Dioxide 26 BUN 12 Creatinine 0.75 Assessment and Plan Assessment Anesthesia Assessment: Chart Reviewed Final Anesthetic Review Family History of Problems with Anesthesia: No History of Problems with Anesthesia: No Documented by User: Oxana Lemus MD 06/17/24 13:14 PMFSH Past Medical History Medical History Anxiety Hernia Liver fibrosis Steatosis, liver Vitamin B12 deficiency Vitamin D deficiency Mild depression Vitamin A deficiency H. pylori infection Knee pain Morbid obesity Family History Family History Mother Diabetes Arthritis Father Diabetes Hypertension Hyperlipidemia Prostate cancer Sister No problems noted. Sister No problems noted. Son No problems noted. Daughter No problems noted. Daughter No problems noted. 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,10,20) Do you presently have visiting nurse or other home services: No Alcohol intake: current Alcohol intake frequency: holidays/special occasions only Comment: previously medicated with tramadol Patient Tobacco Use Status: Never used Tobacco Tobacco use type: Smokeless Tobacco Use of substances other than those prescribed or required for medical reasons: No Are you DNR?: No Advance Directives: No Advance Directives Information Provided: Yes Recently lost weight without trying: No Nutrition Risks: No Nutritional Risk Current occupational status: unemployed Meds Allergies Allergy/AdvReac Type Severity Reaction Status Date / Time No Known Allergies Allergy Verified 05/24/24 12:57 Home Medications ?Medication ?Instructions ?Recorded ?Confirmed ?Last Taken ?Type gabapentin 300 mg capsule 1 cap PO BEDTIME 10/15/21 09/10/22 Unknown History tramadol 50 mg tablet 50 mg PO DAILY 02/11/22 09/10/22 Unknown History zolpidem 10 mg tablet 10 mg PO BEDTIME PRN 02/11/22 09/10/22 Unknown History clonidine HCl 0.1 mg tablet 0.1 mg PO BID anxiety 04/11/23 Unknown History lidocaine 5 % topical patch 1 - 2 patch topical Q12H PRN pain 04/11/23 Unknown History Exam Airway Mallampati Class: II TM Dist: >3cm Neck ROM: Full Heart: rrr Lungs: cta Assessment and Plan Assessment Anesthesia Assessment: Anesthesia Plan Discussed Final Anesthetic Review NPO: Yes ASA Class: III Final Preanesthetic Review: No Changes in Pt Med Stat and Consent Obtained/Reviewed Patient Risk: Intermediate Procedure Risk: Low Anesthetic Plan Anesthetic Plan: MAC: Disposition: Standard PACU
[2024-06-17 11:36] VITALS: BP 99/53; PULSE 82; RESP 20; TEMP 36.9; O2SAT 98
[2024-06-17] MEDS: Lactated Ringers 1,000 ML 100 ML IVCONT (12:01)
--- NOTE | 2024-06-17 12:41 | P.HPSUR_ITS ---
Pre-Procedural Eval Section A - 24 Hr Update-Section A only Date of Service: 06/17/24 Section B - Complete if H&P > 30 days Chief Complaint: Epigastric pain Relevant Family History (Specify if Yes): No Relevant Social History: None Present Medications: see Short Stay Collaborative assessment Medical History: Significant History ( Anxiety Hernia Liver fibrosis Steatosis, liver Vitamin B12 deficiency Vitamin D deficiency Mild depression Vitamin A deficiency H. pylori infection Knee pain Morbid obesity) History of Previous Operations: Relevant previous surgery/procedure and date(s) (Hx of endoscopy Hx of bladder endoscopy S/P gastric sleeve procedure Hx of tubal ligation Hx of section) Allergies: Allergies Allergy/AdvReac Type Severity Reaction Status Date / Time No Known Allergies Allergy Verified 05/24/24 12:57 Review of Systems Sugical H&P ROS: Negative: Constitution, Cardiovascular, Respiratory, Neurological, Psychiatric, Hem-Onc, Allergic/Immunologic, Gastrointestinal, Genitourinary, Musculoskeletal, Integumentary, Endocrine and E yes/Ears/Nose/Throat Exam Surgical H&P Exam: Normal: HEENT, Normal: Heart, Normal: Lungs, Normal: Extremities, Normal: Abdomen, Normal: Skin and Normal: Neurological Plan Diagnosis/Plan: Unchanged I have reviewed the history and physical and performed a pertinent physical examination on my patient. No changes have occurred unless specified. Time Spent With Patient Time: Total time managing care of this patient today ____ minutes.
--- NOTE | 2024-06-17 13:13 | W.PM.OPN ---
Operative Note Operative Note Date of Service: 06/17/24 Narrative: Procedure Description: EGD Indication: sleeve stenosis Anesthesia: MAC FLEXIBLE TRANSORAL UPPER GASTROINTESTINAL ENDOSCOPY UPPER ENDOSCOPY Consent: Indications for the procedure and potential complications of bleeding, perforation, reaction to medications and missed diagnosis were discussed with the patient and informed consent was obtained. Instrument: Olympus GIF H 190 J mid size upper endoscope Monitoring: Vital signs and clinical assessment, continuous EKG monitoring, Pulse oximetry, Carbon Dioxide monitoring and blood pressure monitoring were done throughout the procedure. Procedure: The patient was placed in the left lateral decubitis position and pre-procedure medications were administered and a bite block was placed. The endoscope was inserted into the mouth and advanced under direct vision to the third part of duodenum. A careful inspection was made as the upper endoscope was withdrawn including a retroflexed examination of the proximal stomach; Findings and interventions are described below. Findings: Larynx:normal Esophagus: GE junction at 37 cm, diaphragm hiatus at 37 cm, normal mucosa Stomach: normal mucosa. Grade 2 flap valve on retroflexed examination of the cardia. pylorus was tight, dilated with wire guided balloon to 19 mm, no tear seen. post surgical changes from prior sleeve gastrectomy noted, with stenosis in proximal stomach, dilated using balloon to 20 mm, no tear seen--balloon was held meño longer, few minutes. Duodenum: Normal bulb and descending duodenum, Intervention: wire guided balloon dilation Impression/Findings: gastric stenosis 2/2 sleeve PLAN: might need rigid balloon dilation if ongoing sx
[2024-06-17 13:18] VITALS: BP 94/47; PULSE 86; RESP 16; TEMP 36.9; O2SAT 100
--- NOTE | 2024-06-17 13:25 | HO.ANESPROP2 ---
HPI - Anesthesia Eval Consult details Narrative: for colon and upper PMFSH Active Problems Active Problems: All Active Problems Postprandial epigastric pain (Acute) Obesity (Acute) Abdominal pain (Acute) Anxiety (Acute) S/P laparoscopic sleeve gastrectomy (Acute) Diaphragmatic hernia (Acute) Status post repair of paraesophageal diaphragmatic hernia (Acute) Liver fibrosis (Acute) Steatosis, liver (Acute) Morbid obesity (Acute) Past Medical History Medical History Anxiety Hernia Liver fibrosis Steatosis, liver Vitamin B12 deficiency Vitamin D deficiency Mild depression Vitamin A deficiency H. pylori infection Knee pain Morbid obesity Family History Family History Mother Diabetes Arthritis Father Diabetes Hypertension Hyperlipidemia Prostate cancer Sister No problems noted. Sister No problems noted. Son No problems noted. Daughter No problems noted. Daughter No problems noted. 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,10,20) Do you presently have visiting nurse or other home services: No Alcohol intake: current Alcohol intake frequency: holidays/special occasions only Comment: previously medicated with tramadol Patient Tobacco Use Status: Never used Tobacco Tobacco use type: Smokeless Tobacco Use of substances other than those prescribed or required for medical reasons: No Are you DNR?: No Advance Directives: No Advance Directives Information Provided: Yes Recently lost weight without trying: No Nutrition Risks: No Nutritional Risk Current occupational status: unemployed Meds Allergies Allergy/AdvReac Type Severity Reaction Status Date / Time No Known Allergies Allergy Verified 05/24/24 12:57 Active Medications: Current Medications Lactated Ringer's (Lr) 1,000 mls @ 100 mls/hr IVCONT .Q10H SALEEM Last Admin: 06/17/24 12:01 Dose: 100 mls/hr Home Medications ?Medication ?Instructions ?Recorded ?Confirmed ?Last Taken ?Type gabapentin 300 mg capsule 1 cap PO BEDTIME 10/15/21 09/10/22 Unknown History tramadol 50 mg tablet 50 mg PO DAILY 02/11/22 09/10/22 Unknown History zolpidem 10 mg tablet 10 mg PO BEDTIME PRN 02/11/22 09/10/22 Unknown History clonidine HCl 0.1 mg tablet 0.1 mg PO BID anxiety 04/11/23 Unknown History lidocaine 5 % topical patch 1 - 2 patch topical Q12H PRN pain 04/11/23 Unknown History Exam Height,Weight and Vital Signs: Height 5 ft 3 in Weight 68.946 kg Last Vital Signs Temp 98.4 F 06/17/24 13:18 Pulse 86 06/17/24 13:18 Resp 16 06/17/24 13:18 BP 94/47 L 06/17/24 13:18 Pulse Ox 100 06/17/24 13:18 O2 Del Method Room Air 06/17/24 13:18 Airway Mallampati Class: II TM Dist: >3cm Neck ROM: Limited Heart: rrr Lungs: cta Assessment and Plan Assessment Anesthesia Assessment: Anesthesia Plan Discussed and Chart Reviewed Final Anesthetic Review Family History of Problems with Anesthesia: No History of Problems with Anesthesia: No NPO: Yes ASA Class: III Final Preanesthetic Review: No Changes in Pt Med Stat, Meds/Allgs Chart Reviewed, Consent Obtained/Reviewed and Anes Risks/Benef Reviewed Patient Risk: Intermediate Procedure Risk: Low Anesthetic Plan Anesthetic Plan: MAC: Disposition: Standard PACU
[2024-06-17 13:33] VITALS: BP 99/64; PULSE 77; RESP 18; O2SAT 100
[2024-06-17 13:48] VITALS: BP 109/54; PULSE 73; RESP 18; TEMP 37.1; O2SAT 100
== END 2024-06-17 14:17 | disposition home or self-care (01) ==
PROVIDERS: PCP Registered Nurse; Visit Provider Internal Medicine Gastroenterology
PROC: (CPT 43245; principal; 2024-06-17 12:50)
DX: K95.89 Other complications of other bariatric procedure (principal); K31.2 Hourglass stricture and stenosis of stomach; R10.13 Epigastric pain; K44.9 Diaphragmatic hernia without obstruction or gangrene; Z98.84 Bariatric surgery status; Z56.0 Unemployment, unspecified
CPT/HCPCS: 43245; C1726; J1100; J1596; J2704

== ENCOUNTER → 2024-06-17 11:21 | Outpatient (BNV) | payer MEDICAID, SELFPAY | PROVIDERS: PCP Registered Nurse; Visit Provider Internal Medicine Gastroenterology | DX: K31.1 Adult hypertrophic pyloric stenosis (principal); Z90.3 Acquired absence of stomach [part of]; Z98.84 Bariatric surgery status; R10.13 Epigastric pain | CPT/HCPCS: 43245 ==

== ENCOUNTER 2024-09-13 17:35 | Outpatient (REF) | payer MEDICAID, SELFPAY ==
[2024-09-15 17:08] LABS: HPV mRNA E6/E7 Not Detected (Not Detected)
[2024-09-16 10:54] LABS: C. trachomatis RNA TMA NOT DETECTED
[2024-09-16 10:55] LABS: N. gonorrhoeae RNA TMA NOT DETECTED; Trichomonas (NAAT) NOT DETECTED
== END 2024-09-13 17:36 | disposition home or self-care (01) ==
LOC: HO.HHCLNP 17:35
PROVIDERS: Visit Provider Nurse Practitioner
DX: Z11.3 Encounter for screening for infections with a predominantly sexual mode of transmission (principal)
CPT/HCPCS: 36415; 87491; 87591; 87624; 87661; 88175

== ENCOUNTER 2025-02-28 15:01 | Outpatient (REF) | payer MEDICAID, SELFPAY ==
[2025-02-28 16:10] LABS: MANUAL DIFF FLAG NO
[2025-02-28 16:16] LABS: Basophils Percent Auto 0.8 % (0-2); Eosinophils Absolute Auto 0.3 X10*3/uL (0.0-0.4); Eosinophils Percent Auto 5.8 % (0-4); Hematocrit 31.4 % (37.0-47.0); Hemoglobin 9.6 g/dl (12.0-16.0); Imm Gran Abs Auto 0.01 X10*3/uL (0.00-0.03); Imm Gran Pct Auto 0.2 % (0.0-0.4); Lymphocytes Absolute Auto 1.8 X10*3/uL (1.2-4.9); Lymphocytes Percent Auto 35.8 % (20-40); Mean Corpuscular HGB Conc 30.6 g/dl (31.0-35.0); Mean Corpuscular Hemoglobin 26.8 pg (27.0-33.0); Mean Corpuscular Volume 87.7 fL (80.0-98.0); Mean Platelet Volume 11.6 fL (9.4-12.3); Monocytes Absolute Auto 0.6 X10*3/uL (0.1-1.2); Monocytes Percent Auto 11.8 % (2-11); Neutrophils Absolute Auto 2.3 x10*3/uL (2.0-8.3); Neutrophils Percent Auto 45.6 % (45-73); Platelet Count 274 X10*3/uL (160-400); Red Blood Count 3.58 X10*6/uL (4.20-5.50); Red Cell Distribution Width 15.1 % (11.0-16.0)
[2025-02-28 16:28] LABS: Prothrombin Time 11.5 SEC (10.9-12.4)
[2025-02-28 16:31] LABS: Partial Thromboplastin Time 27.8 SEC (26.0-36.8)
--- OUTSIDE RECORDS SUMMARY | 2025-02-28 17:53 | XMS_ITS | Encounter Summary ---
Author Organization [employer] [facility] Address [address] [place] [address] Care Team Providers Care Talent Scout Name Role Phone Tala Anderson NP Primary Care Provider [phone] Reason for Visit * Reason Comments Med Refill Encounter Details Date Type Department Care Team ([facility] st Contact Info) Description 08/07/2024 Refill [facility] [address] [place] [address] Tala Anderson NP [address] [place] [address] Stomach pain Social History Tobacco Use Types Packs/Day Years Used Date Smoking Tobacco: Former Smokeless Tobacco: Never Comments:Vape 5% nicotine Alcohol Use Standard Drinks/Week Comments Never 0 (1 standard drink = 0.6 oz pur e alcohol) Depression Answer Date Recorded Patient Health Questionnaire-9 Score 0 01/28/2024 Patient Health Questionnaire-9 Score 0 01/28/2024 Last PHQ-9: Questionnaire Data Not on file 0 01/28/2024 Housing Stability Answer Date Recorded What is your housing situation today? I have crow serna 12/24/[address] you li ve. Do you have problems with any of the following? None of the above 12/24/2023 Food Insecurity Answer Date Recorded Within the past 12 months, y ou worried that your food would run out before you got money to buy more: Never True 12/24/2023 Within the past 12 months,th e food you bought just didn't last and you didn't have enough money to get more: Never True Transportation Answer Date Recorded In the past 12 months, has l ack of transportation kept you from medical appts, meetings, work or from getting things needed for daily living? No 12/24/2023 Utilities Answer Date Recorded In the past 12 months, has t he electric, gas, oil or water company threatened to shut off services in your home? No 12/24/2023 Depression Answer Date Recorded Patient Health Questionnaire-2 Score 0 01/28/2024 Comments Unknown Sex and Gender Information Value Date Recorded Sex Assigned at Female 09/23/2022 10:37 AM EDT Legal Sex Female 10:37 AM EDT Gender Identity Female 09/23/2022 10:37 AM EDT Sexual Orientation Don't know 09/23/2022 10 :37 AM EDT documented as of this encounter Plan of Treatment Not on file documented as of this encounter Visit Diagnoses Diagnosis Stomach pain Dyspepsia and other specified disorders of function of stomach documented in this encounter Additional Health Concerns Assessment Noted Time PHQ-9 Depression Total Score: 0 01/28/20 24 2:14 PM EST documented as of this encounter Care Teams Talent Scout Relationship Specialty Start Date End Date Tala Anderson NP [address] [place] [id number] PCP - General Family Medicine 08/29/23 documented as of this encounter
--- OUTSIDE RECORDS SUMMARY | 2025-02-28 17:53 | XMS_ITS | Encounter Summary ---
Author Organization [employer] [facility] Address [address] [place] [address] Care Team Providers Care Uniformer Name Role Phone Tala Anderson NP Primary Care Provider [phone] Reason for Visit * Reason Onset Date Comments Medication Question 07/01/2024 Encounter Details Date Type Department Care Team ([facility] st Contact Info) Description 07/01/2024 Telephone [facility] [address], [place] [phone] Tala Anderson NP [address] [place] [address] Medication Question Social History Tobacco Use Types Packs/Day Years [...] AM EDT documented as of this encounter Miscellaneous Notes * Telephone Encounter - Lilo Acosta RN - 07/01/2024 12:54 PM EDT TC to patient, no answer. L/M asking she call back. * Telephone Encounter - Aric Page - 07/01/2024 12:00 PM EDT Tc from pt requesting call back from Lilo regarding medication. Pt stated she is leaving for vacation on Friday and wanted to discuss possibly receiving medication early and or scheduling an appt as soon as possible. Please contact pt at [phone]. Amharic Speaker documented in this encounter Plan of Treatment Not on file documented as of this encounter Visit Diagnoses Diagnosis Stomach pain Dyspepsia and other specified disorders of function of stomach documented in this encounter Additional Health Concerns Assessment Noted Time PHQ-9 Depression Total Score: 0 01/28/20 24 2:14 PM EST documented as of this encounter Care Teams Uniformer Relationship Specialty Start Date End Date Tala Anderson NP [address] [place] [id number] PCP - General Family Medicine 08/29/23 documented as of this encounter
--- OUTSIDE RECORDS SUMMARY | 2025-02-28 17:53 | XMS_ITS | Clinical Summary ---
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 Detected Not Detected [facility] Comment:Methodology: Transcr iption-Mediated AmplificationThis assay detects E6/E7 viral messenger RNA (mRNA) from 14high-risk HPV types (16,18,31,33,35,39,45,51,52,56,58,59,66,68).Cervical sources are required for HPV testing.If a vaginal source from a patient who has had atotal hysterectomy with removal of cervix wassubmitted, please contact the testing laboratoryfor alternative testing options.For additional information, please refer tohttp://education.Zeo/faq/ORL781d1(This link if provided for information/educational purposes only.)THIS TEST WAS PERFORMED AT:[employer] [address] [id number] BOSS MD SOURCE: SEE NOTE [facility] Comment:Cervix Report Status: [facility] Clinical Information: SEE NOTE [facility] Comment:None given LMP: SEE NOTE [facility] Comment:[id number] Prev. PAP: SEE NOTE [facility] Comment:NONE GIVEN Prev. BX: SEE NOTE [facility] Comment:NONE GIVEN Statement Of Adequacy: SEE NOTE [facility] Comment:Satisfactory for rocío luation.Endocervical/transformation zone componentpresent. General Categorization: [facility] Interpretation/Result: SEE NOTE [facility] Comment:Cytology Results: Ne gative for intraepitheliallesion or malignancy. Cytology Comment SEE NOTE [facility] Comment:This Pap test has be en evaluated with computerassisted technology. Hand Sander: SEE NOTE [facility] Comment:RMM, CT(ASCP)CT scre ening location: [address] [address] Review Hand Sander: [facility] Pathologist [facility] PAP Infection [facility] See Note SEE [facility] Comment:EXPLANATORY NOTE:The Pap is a screening test for cervical cancer. It isnot a diagnostic test and is subject to false negativeand false positive results. It is most reliable when asatisfactory sample, regularly obtained, is submittedwith relevant clinical findings and history, and whenthe Pap result is evaluated along with historic andcurrent clinical information. 09/13/2024 11:4 4 AM EDT 09/13/2024 5:36 PM EDT Narrative [facility] - 09/16/2024 10:53 AM EDT SEE SCANNED RESULTS IN EMRCERVIX us Tala Appram CALCULUS PROFESSOR LAB PATHOLOGY ORDERABLES Final Result Performing Organization Address [facility]/ZIP Co de Phone Number [facility] [address] [place] [phone] * Hepatitis C Antibody with Reflex to HCV, RNA, Quantitative, Real-Time PCR (05/14/2024 4:23 PM EDT) Hepatitis C Antibody Nonreactive Nonreactive [facility] Comment:Antibodies to HCV no t detected; does not exclude early acuteHCV infection. Blood Venous blood specimen / Unknown 05/14/2024 4:23 PM EDT 05/14/2024 5:42 PM EDT [facility] LAB BLOOD ORDERABLES Final Resu lt Performing Organization Address [facility] Co de Phone Number [facility] [address] [place] [phone] * HIV-1/2 Antigen and Antibodies, Fourth Generation, with Reflexes (05/14/2024 4:23 PM EDT) HIV AB/AG Nonreactive Nonreactive [facility] Comment:HIV-1 p24 Ag and/or HIV-1/HIV-2 Ab not detected.A test result that is nonreactive does not exclude thepossibility of exposure to or infection with HIV-1 and/orHIV-2. Nonreactive results in this assay for individualswith prior exposure to HIV-1 and/or HIV-2 may be due toantigen and antibody levels that are below the limit ofdetection of this assay.The [employer] HIV Ag/Ab Combo assay result andsupplemental assay results should be interpreted inconjunction with the patient's clinical presentation,history and other laboratory results. If the results areinconsistent with clinical evidence, additional testing issuggested to confirm the result. Blood Venous blood specimen / Unknown 05/14/2024 4:23 PM EDT 05/14/2024 5:42 PM EDT us Tala Verdugo CALCULUS PROFESSOR LAB BLOOD ORDERABLES Final Resu lt Performing Organization Address [facility]/ZIP Co de Phone Number [facility] [address] [place] [phone] [phone] * Hemoglobin A1c (03/17/2024 9:47 AM EDT) Hemoglobin A1c 5.8 <6.0 % [facility] Comment:Hemoglobin A1C Refer ence Range Adults: 4.8 - 6.0 % Non diabetic: < 6.0 % Goal: < 7.0 %Additional Action Suggested: > 8.0 %Note: Hemoglobin A1c results are invalid for patients with abnormal amounts of HbF. Blood transfusions may impact the HbA1c concentration in the patient sample. Estimated Average Glucose 120 mg/dL [facility] Comment:eAG = Estimated ave rage glucose which is %A1C expressed asaverage glucose, using the formula of the K9A-AkcwonpJnxajwx Glucose study (ADAG), Diabetes Care, Vol.31,#8,Jun. 2007 Blood Venous blood specimen / Unknown 03/17/2024 9:47 AM EDT 03/17/2024 11:22 AM EDT Tala Verdugo CALCULUS PROFESSOR LAB BLOOD ORDERABLES Final Resu lt Performing Organization Address [facility] Co de Phone Number [facility] [address] [place] [phone] from Last 3 Months or Most Recently Relevant to Health Maintenance [place] [address] [place] [address] STANDARD Care Teams Sales Representative Trainee Relationship Specialty Start Date End Date Tala Anderson NP [address] [place] [phone] PCP - General Family Medicine 08/29/23
--- OUTSIDE RECORDS SUMMARY | 2025-02-28 17:53 | XMS_ITS | Encounter Summary ---
Author Organization [employer] Address [address] [place] [address] 7t [place] [address] Care Team Providers Care Bridge Gang Worker Name Role Phone Tala Anderson NP Primary Care Provider [phone] Reason for Visit * Reason Comments Med Refill Encounter Details Date Type Department Care Team ([facility] st Contact Info) Description 12/03/2023 Refill [facility] [address] [place] [address] Deno Hale FNP PTSD (post-traumatic stress disorder) Social History Tobacco Use Types Packs/Day Years Used Date Smoking Tobacco: Former Smokeless Tobacco: Never Comments:Vape 5% nicotine Alcohol Use Standard Drinks/Week Comments Never 0 (1 standard drink = 0.6 oz pur e alcohol) Depression Answer Date Recorded Patient Health Questionnaire-9 Score 10 06/03/2023 Depression Answer Date Recorded Patient Health Questionnaire-2 Score 4 06/03/2023 Comments Unknown Sex and Gender Information Value Date Recorded Sex Assigned at Female 09/23/2022 10:37 AM EDT Legal Sex Female 10:37 AM EDT Gender Identity Female 09/23/2022 10:37 AM EDT Sexual Orientation Don't know 09/23/2022 10 :37 AM EDT documented as of this encounter Plan of Treatment Not on file documented as of this encounter Visit Diagnoses Diagnosis PTSD (post-traumatic stress disorder) Posttraumatic stress disorder documented in this encounter Additional Health Concerns Assessment Noted Time PHQ-9 Depression Total Score: 023 11:00 AM EDT documented as of this encounter Care Teams Bridge Gang Worker Relationship Specialty Start Date End Date Tala Anderson NP [address] [place] [address] PCP - General Family Medicine 08/29/23 documented as of this encounter
--- OUTSIDE RECORDS SUMMARY | 2025-02-28 17:53 | XMS_ITS | Encounter Summary ---
Author Organization [employer] [facility] Address [address] [facility] 7t [place] [address] Care Team Providers Care Documentation Clerk Name Role Phone Tala Anderson NP Primary Care Provider Encounter Details Date Type Department Care Team (Late st Contact Info) Description 07/02/2024 Orders Only [facility] [address] [place], [place] [phone] Tala Anderson NP [address] [place] [address] Social History Tobacco Use Types Packs/Day Years [...] documented as of this encounter Visit Diagnoses Not on filedocumented in this encounter Additional Health Concerns Assessment Noted Time PHQ-9 Depression Total Score: 0 01/28/20 24 2:14 PM EST documented as of this encounter Care Teams Documentation Clerk Relationship Specialty Start Date End Date Tala Anderson NP [address] [place] [address] PCP - General Family Medicine 08/29/23 documented as of this encounter
--- OUTSIDE RECORDS SUMMARY | 2025-02-28 17:53 | XMS_ITS | Encounter Summary ---
Author Organization [employer] [facility] Address [address] [facility] 7t [place] [address] Care Team Providers Care Temporary Administrative Assistant Name Role Phone Tala Anderson NP Primary Care Provider Reason for Visit * Reason Onset Date Comments Med Refill 09/15/2024 Encounter Details Date Type Department Care Team ([facility] st Contact Info) Description 09/15/2024 Refill [facility] [address] [place] [address] Tala Anderson NP [address] [place] [address] Neuropathy Social History Tobacco Use Types Packs/Day Years [...] as of this encounter Visit Diagnoses Diagnosis Neuropathy Mononeuritis of unspecified site documented in this encounter Additional Health Concerns Assessment Noted Time PHQ-9 Depression Total Score: 0 01/28/20 24 2:14 PM EST documented as of this encounter Care Teams Temporary Administrative Assistant Relationship Specialty Start Date End Date Tala Anderson NP [address] [place] [address] PCP - General Family Medicine 08/29/23 documented as of this encounter
--- OUTSIDE RECORDS SUMMARY | 2025-02-28 17:53 | XMS_ITS | Encounter Summary ---
Author Organization [email or web address] [facility] Address [address] [facility] 7t [place] [address] Care Team Providers Care Pattern Cutter Name Role Phone Tala Anderson NP Primary Care Provider [phone] Reason for Visit * Reason Comments Med Refill Encounter Details Date Type Department Care Team ([facility] st Contact Info) Description 10/25/2024 Refill [facility] [address] [place] [address] Tala Anderson NP 230 [place] [address] Stomach pain Social History Tobacco Use Types [...] documented as of this encounter Care Teams Pattern Cutter Relationship Specialty Start Date End Date Tala Anderson NP [address] [place] [address] PCP - General Family Medicine 08/29/23 documented as of this encounter
--- OUTSIDE RECORDS SUMMARY | 2025-02-28 17:53 | XMS_ITS | Encounter Summary ---
Author Organization [employer] [facility] Address [address] [facility] 7t [place] [address] Care Team Providers Care Real Estate Clerk Name Role Phone Tala Anderson NP Primary Care Provider [phone] Reason for Visit * Reason Comments Med Refill Encounter Details Date Type Department Care Team ([facility] st Contact Info) Description 09/13/2024 Refill [facility] [address] [place] [address] Tala Anderson NP [address] [place] [address] PTSD (post-traumatic stress disorder) Social History Tobacco [...] documented as of this encounter Care Teams Real Estate Clerk Relationship Specialty Start Date End Date Tala Anderson NP [address] [place] [address] PCP - General Family Medicine 08/29/23 documented as of this encounter
--- OUTSIDE RECORDS SUMMARY | 2025-02-28 17:53 | XMS_ITS | Encounter Summary ---
Author Organization [employer] [facility] Address [address] [facility] 7t [place] [address] Care Team Providers Care Physical Education Aide Name Role Phone Tala Anderson NP Primary Care Provider [phone] Reason for Visit * Reason Onset Date Comments Med Refill Schedule ESL TUTOR appt 06/17/2024 Encounter Details Date Type Department Care Team (Late st Contact Info) Description 06/17/2024 Refill [facility] 230 [place], [place] [phone] Tala Anderson NP 230 [place] [address] Stomach pain Social History Tobacco Use Types [...] encounter Miscellaneous Notes * Telephone Encounter - Tala Anderson NP - 06/17/2024 11:13 AM EDT Refilled 06/03/24. Patient advised to use dicyclomine TID and tramadol only when necessary. Needs toschedule ESL TUTOR appointment for further refill. * Telephone Encounter - Lilo Acosta RN - 06/17/2024 11:01 AM EDT TC to patient, no answer. Unable to leave , mailbox full. Pt cancelled ESL TUTOR RV appts 06/09/24 & 06/14/24 and has not rescheduled. Pt cancelled PCP appt 06/11/24 & 06/16/24. UTOX sent out 06/02/24 confirmed positive BUP. Last seen by you 05/14/24 Please advise of/if any changes in her plan of care documented in this encounter Plan of Treatment Not on file documented as of this encounter Visit Diagnoses Diagnosis Stomach pain Dyspepsia and other specified disorders of function of stomach documented in this encounter Additional Health Concerns Assessment Noted Time PHQ-9 Depression Total Score: 0 01/28/20 24 2:14 PM EST documented as of this encounter Care Teams Physical Education Aide Relationship Specialty Start Date End Date Tala Anderson NP [address] [place] [address] PCP - General Family Medicine 08/29/23 documented as of this encounter
--- OUTSIDE RECORDS SUMMARY | 2025-02-28 17:53 | XMS_ITS | Encounter Summary ---
Author Organization [employer] [facility] Address [address] [facility] 7t [place] [address] Care Team Providers Care Principal Quality Engineer Name Role Phone Tala Anderson NP Primary Care Provider [phone] Reason for Visit * Reason Comments Med Refill Encounter Details Date Type Department Care Team ([facility] st Contact Info) Description 01/18/2024 Refill [facility] [address] [place] [address] Tala Anderson NP 230 [place] [address] Epigastric cramping Social History Tobacco Use Types Packs/Day Years Used Date Smoking Tobacco: Former Smokeless Tobacco: Never Comments:Vape 5% nicotine Alcohol Use Standard Drinks/Week Comments Never 0 (1 standard drink = 0.6 oz pur e alcohol) Depression Answer Date Recorded Patient Health Questionnaire-9 Score 11 01/05/2024 Patient Health Questionnaire-9 Score 11 01/05/2024 Last PHQ-9: Questionnaire Data Not on file 0 01/05/2024 Housing Stability Answer Date Recorded What is [...] Answer Date Recorded Patient Health Questionnaire-2 Score 2 01/05/2024 Comments Unknown Sex and Gender Information Value Date Recorded Sex Assigned at Female 09/23/2022 10:37 AM EDT Legal Sex Female 10:37 AM EDT Gender Identity Female 09/23/2022 10:37 AM EDT Sexual Orientation Don't know 09/23/2022 10 :37 AM EDT documented as of this encounter Miscellaneous Notes * Telephone Encounter - Tala Anderson NP - 01/20/2024 2:16 PM EST Approving, but needs appt for additional refills. documented in this encounter Plan of Treatment Not on file documented as of this encounter Visit Diagnoses Diagnosis Epigastric cramping documented in this encounter Additional Health Concerns Assessment Noted Time PHQ-9 Depression Total Score: 11 024 10:03 AM EST documented as of this encounter Care Teams Principal Quality Engineer Relationship Specialty Start Date End Date Tala Anderson NP [address] [place] [address] PCP - General Family Medicine 08/29/23 documented as of this encounter
--- OUTSIDE RECORDS SUMMARY | 2025-02-28 17:53 | XMS_ITS | Encounter Summary ---
Author Organization [employer] [facility] Address [address] [facility] 7t [place] [address] Care Team Providers Care Shipping Helper Name Role Phone Tala Anderson NP Primary Care Provider [phone] Reason for Visit * Reason Onset Date Comments Med Refill 05/04/2024 Encounter Details Date Type Department Care Team (Late st Contact Info) Description 05/04/2024 Refill [facility] [address] [place] [address] Tala Anderson NP [address] [place] [address] Stomach pain Social History Tobacco Use Types [...] documented as of this encounter Care Teams Shipping Helper Relationship Specialty Start Date End Date Tala Anderson NP [address] [place] [address] PCP - General Family Medicine 08/29/23 documented as of this encounter
--- OUTSIDE RECORDS SUMMARY | 2025-02-28 17:53 | XMS_ITS | Encounter Summary ---
Author Organization [employer] [facility] Address [address] [place] [address] 7 [place] [address] Care Team Providers Care Pneumatic Tool Operator Name Role Phone Gin Colby Primary Care Provider [phone] Tala Anderson NP Primary Care Provider [phone] Reason for Visit * Reason Onset Date Comments Medication Question 06/11/2023 Encounter Details Date Type Department Care Team (Late st Contact Info) Description 06/11/2023 Telephone [facility] [address] [place] [address] Gin Colby FNP [address] [place] [address] Dept [place] [address] Medication Question Social History Tobacco Use Types [...] encounter Miscellaneous Notes * Telephone Encounter - Cherri Weston RN - 06/13/2023 1:41 PM EDT TC X1 to pt regarding message below. Unable to LVM as VM is not set up. * Telephone Encounter - Marilyn Swenson - 06/11/2023 4:30 PM EDT Tc from pt requesting if she an stop taking tramadol and get a script for xanax or klonopin. Nelly discussed with ken grullon in regards to that process. Please contact pt at [phone] (Tristanian speaker) documented in this encounter Plan of Treatment Not on file documented as of this encounter Visit Diagnoses Not on filedocumented in this encounter Additional Health Concerns Assessment Noted Time PHQ-9 Depression Total Score: 10 023 11:00 AM EDT documented as of this encounter Care Teams Pneumatic Tool Operator Relationship Specialty Start Date End Date Gin Colby FNP PCP - General Family Medicine 07/18/22 08/28/23 Tala Anderson NP [address] [place] [address] PCP - General Family Medicine 08/29/23 documented as of this encounter
--- OUTSIDE RECORDS SUMMARY | 2025-02-28 17:53 | XMS_ITS | Encounter Summary ---
Author Organization [employer] [facility] Address [address] [facility] 7t [place] [address] Care Team Providers Care Counter Checker Name Role Phone Tala Anderson LINDA Primary Care Provider [phone] Reason for Visit * Reason Comments Med Refill Encounter Details Date Type Department Care Team (Late st Contact Info) Description 06/13/2024 Refill [facility] [address] [place] [address] Deon Hale FNP PTSD (post-traumatic stress disorder) Social [...] t he electric, gas, oil or water [employer] threatened to shut off services in your [...] documented as of this encounter Care Teams Counter Checker Relationship Specialty Start Date End Date Tala Anderson NP [address] [place] [address] PCP - General Family Medicine 08/29/23 documented as of this encounter
--- OUTSIDE RECORDS SUMMARY | 2025-02-28 17:53 | XMS_ITS | Encounter Summary ---
Author Organization [employer] [facility] Address [address] [place] [address] [place] [address] Care Team Providers Care Code And Test Clerk Name Role Phone Gin Colby Primary Care Provider [phone] Tala Anderson NP Primary Care Provider [phone] Encounter Details Date Type Department Care Team (Late st Contact Info) Description 12/16/2022 Orders Only [facility] MEDICINE [address] [place] [address] Gin Colby FNP [address] [place] [address] Dept [place] [address] Neuropathy Social History Tobacco Use Types Packs/Day Years Used Date Smoking Tobacco: Never Assessed Comments Unknown Sex and Gender Information Value [...] Assessment Noted Time PHQ-9 Depression Total Score: 17 11/21/ 022 10:14 AM EST documented as of this encounter Care Teams Code And Test Clerk Relationship Specialty Start Date End Date Gin Colby FNP PCP - General Family Medicine 07/18/22 08/28/23 Tala Anderson NP 230 [place] [address] PCP - General Family Medicine 08/29/23 documented as of this encounter
--- OUTSIDE RECORDS SUMMARY | 2025-02-28 17:53 | XMS_ITS | Encounter Summary ---
Author Organization [employer] [facility] Address [address] [facility] 7t [place] [address] Care Team Providers Care Customer Logistics Manager Name Role Phone Tala Anderson NP Primary Care Provider [phone] Reason for Visit * Reason Comments Med Refill Encounter Details Date Type Department Care Team ([facility] st Contact Info) Description 01/13/2024 Refill [facility] [address] [place] [address] Tala Anderson NP [address] [place] [address] Stomach pain Social History Tobacco Use Types [...] Telephone Encounter - Tala Anderson NP - 01/14/2024 9:21 AM EST Approving, but needs appt for additional refills. documented in this encounter Plan of Treatment Not on file documented as of this encounter Visit Diagnoses Diagnosis Stomach pain Dyspepsia and other specified disorders of function of stomach documented in this encounter Additional Health Concerns Assessment Noted Time PHQ-9 Depression Total Score: 11 024 10:03 AM EST documented as of this encounter Care Teams Customer Logistics Manager Relationship Specialty Start Date End Date Tala Anderson NP [address] [place] [address] PCP - General Family Medicine 08/29/23 documented as of this encounter
--- OUTSIDE RECORDS SUMMARY | 2025-02-28 17:53 | XMS_ITS | Encounter Summary ---
Author Organization [facility] Address [address] [facility] 7t [place] [address] Care Team Providers Care Program Analyst Name Role Phone Tala Anderson NP Primary Care Provider [phone] Reason for Visit * Reason Comments Pre-op Exam Encounter Details Date Type Department Care Team (Late st Contact Info) Description 02/28/2025 2:00 PM EDT Office Visit [facility] [address] [place] [address] Tala Anderson NP [address] [place] [address] Pre-op examination (Primary Dx) Social History Tobacco Use Types Packs/Day Years [...] AM EDT documented as of this encounter Last Filed Vital Signs Vital Sign Reading [...] Mass Index 27.92 02/28/2025 2:12 PM EDT documented in this encounter Plan of Treatment Scheduled Orders Name Type Priority Associated Diagnoses Orde r Schedule Comprehensive Metabolic Panel Lab Routine Pre-op examination Expected: 02/28/2025 (Approximate), Expires: 02/28/2026 documented as of this encounter Procedures Procedure Name Priority Date/Time Associated Diagnosis Comments CBC WITH AUTO DIFFERENTIAL Routine 02/28/2025 3:11 PM EDT Pre-op examination APTT Routine 02/28/2025 3:11 PM EDT Pre-op examination PROTHROMBIN TIME-INR Routine 02/28/2025 3:11 PM EDT Pre-op examination documented in this encounter Results * Partial Thromboplastin Time, Activated (APTT) (02/28/2025 3:11 PM EDT) Partial Thromboplastin Time 27.8 26.0 - 36.8 SEC [facility] Comment:For information rega rding the monitoring of direct thrombininhibitors, please refer to Pharmacy. Blood Venous blood specimen / Unknown 02/28/2025 3:11 PM EDT 02/28/2025 4:07 PM EDT [facility] BLOOD ORDERABLES Final Resu lt Performing Organization Address City/State/[facility] Co de Phone Number [facility] [address] [place] [phone] * Prothrombin Time-INR (02/28/2025 3:11 PM EDT) Prothrombin Time 11.5 10.9 - 12.4 SEC [facility] INTERNATIONAL NORM RATIO 1.0 0.9 - 1.1 [facility] Comment:INTERNATIONAL NORMAL IZED RATIO (INR) [...] PM EDT 02/28/2025 4:07 PM EDT Tala Lucina PROTECTION CONSULTANT LAB BLOOD ORDERABLES Final Resu lt [facility] [address] [place], [place] [phone] * (ABNORMAL) CBC auto differential (02/28/2025 3:11 PM EDT) White Blood Count 5.0 4.8 - 10.8 X10*3/uL [facility] Red Blood Count 3.58(L) 4.20 - 5.50 X10*6/uL [facility] Hemoglobin 9.6(L) 12.0 - 16.0 g/dl [facility] Hematocrit 31.4(L) 37.0 - 47.0 % [facility] Mean Corpuscular Volume 87.7 80.0 - 98.0 fL [facility] Mean Corpuscular Hemoglobin 26.8(L) 27.0 - 33.0 pg [facility] Mean Corpuscular HGB Conc 30.6(L) 31.0 - 35.0 g/dl [facility] Red Cell Distribution Width 15.1 11.0 - 16.0 % [facility] Platelet Count 274 160 - 400 X10*3/uL [facility] Mean Platelet Volume 11.6 9.4 - 12.3 fL [facility] Neutrophils Percent Auto 45.6 45 - 73 % [facility] Imm Gran Pct Auto 0.2 0.0 - 0.4 % [facility] Lymphocytes Percent Auto 35.8 20 - 40 % [facility] Monocytes Percent Auto 11.8(H) 2 - 11 % [facility] Eosinophils Percent Auto 5.8(H) 0 - 4 % [facility] Basophils Percent Auto 0.8 0 - 2 % [facility] NRBC Pct Auto 0.0 0.0 - 0.2 /100WBC [facility] Neutrophils Absolute Auto 2.3 2.0 - 8.3 x10*3/uL [facility] Imm Gran Abs Auto 0.01 0.00 - 0.03 X10*3/uL [facility] Lymphocytes Absolute Auto 1.8 1.2 - 4.9 X10*3/uL [facility] Monocytes Absolute Auto 0.6 0.1 - 1.2 X10*3/uL [facility] Eosinophils Absolute Auto 0.3 0.0 - 0.4 X10*3/uL [facility] Basophils Absolute Auto 0.0 0.0 - 0.2 X10*3/uL [facility] NRBC Abs Auto 0.000 0.0 - 0.012 X10*3/uL [facility] Blood Venous blood specimen / Unknown 02/28/2025 3:11 PM EDT 02/28/2025 4:07 PM EDT us Tala Anderson NP LAB BLOOD ORDERABLES Final Resu lt [facility] [address] [place] [address] [phone] documented in this encounter Visit Diagnoses Diagnosis Pre-op examination- Primary documented in this encounter Additional Health Concerns Assessment Noted Time PHQ-9 Depression Total Score: 15 025 11:34 AM EDT documented as of this encounter Care Teams Program Analyst Relationship Specialty Start Date End Date Tala Anderson NP [address] [place] [address] PCP - General Family Medicine 08/29/23 documented as of this encounter
--- OUTSIDE RECORDS SUMMARY | 2025-02-28 17:53 | XMS_ITS | Encounter Summary ---
Author Organization [facility] [facility] Address [address] [facility] 7t [place] [address] Care Team Providers Care Transportation Operations Manager Name Role Phone Tala Anderson LINDA Primary Care Provider [phone] Encounter Details Date Type Department Care Team (Latest Contact Info) Description 02/28/2025 Travel Social History Tobacco Use Types Packs/Day Years [...] documented as of this encounter Care Teams Transportation Operations Manager Relationship Specialty Start Date End Date Tala Anderson NP [address] [place] [phone] PCP - General Family Medicine 08/29/23 documented as of this encounter
--- OUTSIDE RECORDS SUMMARY | 2025-02-28 17:53 | XMS_ITS | Encounter Summary ---
Author Organization [facility] Address [address] [facility] 7t [place] [address] Care Team Providers Care Naphthalene Still Operator Name Role Phone Tala Anderson NP Primary Care Provider [phone] Reason for Visit * Reason Onset Date Comments Pre-op Visit 02/23/2025 Encounter Details Date Type Department Care Team ([facility] st Contact Info) Description 02/23/2025 Telephone [facility] [address] [place] [address] Tala Anderson NP [address] [place] [address] Pre-op Visit Social History Tobacco Use Types Packs/Day Years [...] encounter Miscellaneous Notes * Telephone Encounter - Dara Shrestha RN - 02/25/2025 8:47 AM EDT Crop Nutrition Scientist handed fax from medical records in regards to pr-op. [facility] office requesting the following blood work, diagnostic exams and clearances be performed 90 days prior to surgery: -Complete Blood Count w/o Differential w/ Platelet (CBC w/o Diff w/ Plt -Prothrombin Time and Partial Thromboplastin Time (PT/PTT) -Complete Metabolic Panel (CMP) 3D Mammogram Screening Digital w/ CAD Primary Care Physician Clearance Pt scheduled for pre-op appointment with PCP on 02/28/25 at 2:00 PM with PCP. Message forwarded to PCP for review. * Telephone Encounter - Fabricio Jacques - 02/23/2025 3:44 PM EDT Pt agreed to pre-op on 02/28 with pcp [facility] Facility will fax labs that are needed / if not received pt has copy in email * Telephone Encounter - Fabricio Jacques - 02/23/2025 3:33 PM EDT Date of Surgery: 03/28/25 Surgical procedure being done: breast lift and augmentation Type of anesthesia: general anesthesia Lab needed: Yes EKG: No Surgeon's name: Dr Karon Lawson Facility name: [facility] Surgeon's office number: [phone] Surgeon's office fax number: [phone] Contact name (person you spoke with): Marya Last office note from surgeon requested: Yes Send Message to Calista Thacker and Fabricio Jacques documented in this encounter Plan of Treatment Not on file documented as of this encounter Visit Diagnoses Not on filedocumented in this encounter Additional Health Concerns Assessment Noted Time PHQ-9 Depression Total Score: 15 025 11:34 AM EDT documented as of this encounter Care Teams Naphthalene Still Operator Relationship Specialty Start Date End Date Tala Anderson NP [address] [place] [address] PCP - General Family Medicine 08/29/23 documented as of this encounter
--- OUTSIDE RECORDS SUMMARY | 2025-02-28 17:53 | XMS_ITS | Encounter Summary ---
Author Organization [facility] Address [address] [place] [address] 7 [place] [address] Care Team Providers Care Veneer Jointer Helper Name Role Phone Tala Anderson NP Primary Care Provider [phone] Reason for Visit * Reason Onset Date Comments Med Refill 12/04/2023 Appt with PCP 12/04/2023 Encounter Details Date Type Department Care Team (Late st Contact Info) Description 12/04/2023 Refill [facility] [address] [place] [address] Tala Anderson NP [address] [place] [address] Stomach pain Social History Tobacco Use Types [...] Telephone Encounter - Tala Anderson NP - 12/05/2023 4:59 PM EST Approving, but needs appt for additional refills. * Telephone Encounter - Lilo Acosta RN - 12/05/2023 3:21 PM EST TC to pt, pt notified that she needs to seen by PCP regarding her Tramadol. Pt scheduled for appt with PCP 12/24/23 @ 11am. Explained to pt that PCP will RX Tramadol 1 pill Q12hr PRN until 12/24/23. Ptstated she understood. Pt was clearly advised that she must attend that appointment or PCP will nolonger RX Tramadol. Pt stated she understood. Pt is actively also calling her [facility]astro group for an appointment as well. * Telephone Encounter - Marilyn Swenson - 12/05/2023 11:42 AM EST Tc from pt requesting a one month supply for tramadol or at least 20 day supply like before. * Telephone Encounter - Aric Page - 12/04/2023 3:40 PM EST TC from pt requesting medication refill. Medications needing refill : traMADol (Ultram) 50 MG tablet To be sent to: [id number] documented in this encounter Plan of Treatment Not on file documented as of this encounter Visit Diagnoses Diagnosis Stomach pain Dyspepsia and other specified disorders of function of stomach documented in this encounter Additional Health Concerns Assessment Noted Time PHQ-9 Depression Total Score: 023 11:00 AM EDT documented as of this encounter Care Teams Veneer Jointer Helper Relationship Specialty Start Date End Date Tala Anderson NP [address] [place] [address] PCP - General Family Medicine 08/29/23 documented as of this encounter
--- OUTSIDE RECORDS SUMMARY | 2025-02-28 17:53 | XMS_ITS | Encounter Summary ---
Author Organization [facility] Address [address] [facility] 7t [place] [address] Care Team Providers Care Medical Education Manager Name Role Phone Tala Anderson NP Primary Care Provider [phone] Reason for Visit * Reason Onset Date Comments Med Refill 05/18/2024 Encounter Details Date Type Department Care Team ([facility] st Contact Info) Description 05/18/2024 Refill [facility] [address] [place] [address] Tala Anderson NP [address] [place] [address] Stomach pain Social History Tobacco Use Types [...] documented as of this encounter Care Teams Medical Education Manager Relationship Specialty Start Date End Date Tala Anderson NP [address] [place] [address] PCP - General Family Medicine 08/29/23 documented as of this encounter
--- OUTSIDE RECORDS SUMMARY | 2025-02-28 17:53 | XMS_ITS | Encounter Summary ---
Author Organization [facility] Address [address] [facility] 7t [place] [address] Care Team Providers Care Sub Arc Operator Name Role Phone Tala Anderson NP Primary Care Provider [phone] Reason for Visit * Reason Onset Date Comments Med Refill 06/17/2024 Encounter Details Date Type Department Care Team ([facility] st Contact Info) Description 06/17/2024 Refill [facility] [address] [place] [address] Tala Anderson NP [address] [place] [address] Stomach pain Social History Tobacco Use Types [...] documented as of this encounter Care Teams Sub Arc Operator Relationship Specialty Start Date End Date Tala Anderson NP [address] [place] [address] PCP - General Family Medicine 08/29/23 documented as of this encounter
--- OUTSIDE RECORDS SUMMARY | 2025-02-28 17:53 | XMS_ITS | Encounter Summary ---
Author Organization [facility] Address [address] [facility] 7t [place] [address] Care Team Providers Care Safety Teacher Name Role Phone Tala Anderson NP Primary Care Provider [phone] Reason for Visit * Reason Onset Date Comments Med Refill 06/11/2024 Encounter Details Date Type Department Care Team ([facility] st Contact Info) Description 06/11/2024 Refill [facility] [address] [place] [address] Tala Anderson NP [address] [place] [address] Neuropathy Social History Tobacco Use Types Packs/Day [...] documented as of this encounter Care Teams Safety Teacher Relationship Specialty Start Date End Date Tala Anderson NP [address] [place] [address] PCP - General Family Medicine 08/29/23 documented as of this encounter
--- OUTSIDE RECORDS SUMMARY | 2025-02-28 17:53 | XMS_ITS | Encounter Summary ---
Author Organization [employer] [facility] Address [address] 7t [place] [address] Care Team Providers Care Novelty Maker Name Role Phone Tala Anderson NP Primary Care Provider [phone] Reason for Visit * Reason Onset Date Comments Med Refill 07/09/2024 Encounter Details Date Type Department Care Team (Late st Contact Info) Description 07/09/2024 Refill [facility] [address] [place] [address] Tala Anderson NP [address] [place] [address] Stomach pain Social History Tobacco Use Types [...] Telephone Encounter - Lilo Acosta RN - 07/13/2024 1:37 PM EDT Received the following message from patient today via [employer]. Tala I been with horrible pain I my uterus And lower back I don???t know what to do . documented in this encounter Plan of Treatment Not on file documented as of this encounter Visit Diagnoses Diagnosis Stomach pain Dyspepsia and other specified disorders of function of stomach documented in this encounter Additional Health Concerns Assessment Noted Time PHQ-9 Depression Total Score: 0 01/28/20 24 2:14 PM EST documented as of this encounter Care Teams Novelty Maker Relationship Specialty Start Date End Date Tala Anderson NP [address] [place] [address] PCP - General Family Medicine 08/29/23 documented as of this encounter
--- OUTSIDE RECORDS SUMMARY | 2025-02-28 17:53 | XMS_ITS | Encounter Summary ---
Author Organization [facility] Address [address] [facility] 7t [place] [address] Care Team Providers Care Filter Press Operator Name Role Phone Tala Anderson NP Primary Care Provider [phone] Reason for Visit * Reason Onset Date Comments Med Refill 09/02/2024 Encounter Details Date Type Department Care Team ([facility] st Contact Info) Description 09/02/2024 Refill [facility] [address] [place] [address] Tala Anderson NP [address] [place] [address] Neuropathy Social History Tobacco Use Types Packs/Day [...] documented as of this encounter Care Teams Filter Press Operator Relationship Specialty Start Date End Date Tala Anderson NP [address] [place] [address] PCP - General Family Medicine 08/29/23 documented as of this encounter
--- OUTSIDE RECORDS SUMMARY | 2025-02-28 17:53 | XMS_ITS | Encounter Summary ---
Author Organization [employer] Address [address] [place] [address] 7t [place] [address] Care Team Providers Care Senior Lead Software Engineer Name Role Phone Tala Anderson NP Primary Care Provider [phone] Reason for Visit * Reason Comments Med Refill Encounter Details Date Type Department Care Team ([facility] st Contact Info) Description 12/10/2023 Refill [facility] [address] [place] [address] Deon Hale FNP PTSD (post-traumatic stress disorder) [...] documented as of this encounter Care Teams Senior Lead Software Engineer Relationship Specialty Start Date End Date Tala Anderson NP [address] [place] [address] PCP - General Family Medicine 08/29/23 documented as of this encounter
--- OUTSIDE RECORDS SUMMARY | 2025-02-28 17:53 | XMS_ITS | Encounter Summary ---
Author Organization [employer] [facility] Address [address] [facility] 7t [place] [address] Care Team Providers Care Extractor Tender Raw Stock Name Role Phone Tala Anderson NP Primary Care Provider [phone] Reason for Visit * Reason Onset Date Comments Med Refill 08/25/2024 Encounter Details Date Type Department Care Team ([facility] st Contact Info) Description 08/25/2024 Refill [facility] [address] [place] [address] Tala Anderson NP [address] [place] [address] Neuropathy Social History Tobacco Use Types Packs/Day [...] documented as of this encounter Care Teams Extractor Tender Raw Stock Relationship Specialty Start Date End Date Tala Anderson NP [address] [place] [address] PCP - General Family Medicine 08/29/23 documented as of this encounter
--- OUTSIDE RECORDS SUMMARY | 2025-02-28 17:53 | XMS_ITS | Encounter Summary ---
Author Organization [employer] [facility] Address [address] [facility] 7t [place] [address] Care Team Providers Care Director Of Officiating Name Role Phone Tala Anderson NP Primary Care Provider Reason for Visit * Reason Onset Date Comments Med Refill 05/18/2024 Encounter Details Date Type Department Care Team ([facility] st Contact Info) Description 05/18/2024 Refill [facility] MED[facility]INE [address] [place] [address] Tala Anderson NP [address] [place] [address] Neuropathy Social History Tobacco Use Types Packs/Day [...] documented as of this encounter Care Teams Director Of Officiating Relationship Specialty Start Date End Date Tala Anderson NP [address] [place] [address] PCP - General Family Medicine 08/29/23 documented as of this encounter
--- OUTSIDE RECORDS SUMMARY | 2025-02-28 17:53 | XMS_ITS | Encounter Summary ---
Author Organization [employer] [facility] Address [address] [facility] 7t [place] [address] Care Team Providers Care Wire Temperer Name Role Phone Tala Anderson NP Primary Care Provider [phone] Reason for Visit * Reason Onset Date Comments Med Refill 08/12/2024 Encounter Details Date Type Department Care Team (Late st Contact Info) Description 08/12/2024 Refill [facility] MEDICINE [address] [place] [address] Tala Anderson NP [address] [place] [address] Stomach pain Social History Tobacco Use Types [...] documented as of this encounter Care Teams Wire Temperer Relationship Specialty Start Date End Date Tala Anderson NP [address] [place] [address] PCP - General Family Medicine 08/29/23 documented as of this encounter
--- OUTSIDE RECORDS SUMMARY | 2025-02-28 17:53 | XMS_ITS | Encounter Summary ---
Author Organization [employer] [facility] Address [address] [facility] 7t [place] [address] Care Team Providers Care Dairy Manager Name Role Phone Tala Anderson NP Primary Care Provider [phone] Reason for Visit * Reason Onset Date Comments Med Refill 08/16/2024 Encounter Details Date Type Department Care Team (Late st Contact Info) Description 08/16/2024 Refill [facility] [address] [place] [address] Tala Anderson NP [address] [place] [address] Stomach pain Social History Tobacco Use Types [...] Telephone Encounter - Tala Anderson NP - 08/20/2024 4:02 PM EDT Signed by Dr. Silva today * Telephone Encounter - Lilo Acosta RN - 08/16/2024 3:04 PM EDT Per Vilma, Tramadol last picked up on 07/23/24, refill due 08/20/24. Will forward to PCP on 08/18/24. documented in this encounter Plan of Treatment Not on file documented as of this encounter Visit Diagnoses Diagnosis Stomach pain Dyspepsia and other specified disorders of function of stomach documented in this encounter Additional Health Concerns Assessment Noted Time PHQ-9 Depression Total Score: 0 01/28/20 2:14 PM EST documented as of this encounter Care Teams Dairy Manager Relationship Specialty Start Date End Date Tala Anderson NP [address] [place] [address] PCP - General Family Medicine 08/29/23 documented as of this encounter
--- OUTSIDE RECORDS SUMMARY | 2025-02-28 17:53 | XMS_ITS | Encounter Summary ---
Author Organization [employer] [facility] Address [address] [facility] 7t [place] [address] Care Team Providers Care Internal Salesperson Name Role Phone Tala Anderson NP Primary Care Provider [phone] Encounter Details Date Type Department Care Team (Late st Contact Info) Description 10/12/2024 Telephone [facility] MED[facility]INE [address] [place], [place] [phone] Tala Anderson NP [address] [place], [place] [phone] Social History Tobacco Use Types Packs/Day Years [...] is your housing situation today? I have crowlatrell serna 12/24/[address] you [...] documented as of this encounter Care Teams Internal Salesperson Relationship Specialty Start Date End Date Tala Anderson NP [address] [place] [address] PCP - General Family Medicine 08/29/23 documented as of this encounter
--- OUTSIDE RECORDS SUMMARY | 2025-02-28 17:53 | XMS_ITS | Encounter Summary ---
Author Organization [employer] [facility] Address [address] [place] [address] 7t [place] [address] Care Team Providers Care Narrow Gauge Operator Name Role Phone Tala Anderson LINDA Primary Care Provider [phone] Reason for Visit * Reason Onset Date Comments Med Refill Schedule BOILER SHOP SUPERVISOR Initial appt 12/03/2023 Schedu luz BOILER SHOP SUPERVISOR Initial appt Encounter Details Date Type Department Care Team (Late st Contact Info) Description 12/03/2023 Refill [facility] [address] [address] Agustina Gray, NEONATAL SURGEON Stomach pain Social History Tobacco Use Types [...] Telephone Encounter - Lilo Acosta RN - 12/03/2023 12:13 PM EST TC via P/I#[id number], pt scheduled for BOILER SHOP SUPERVISOR Initial appt 02/02/24. Advised to bring her Tramadol to the appt and to check in on red team. Appt reminder mailed. documented in this encounter Plan of Treatment Not on file documented as of this encounter Visit Diagnoses Diagnosis Stomach pain Dyspepsia and other specified disorders of function of stomach documented in this encounter Additional Health Concerns Assessment Noted Time PHQ-9 Depression Total Score: 10 023 11:00 AM EDT documented as of this encounter Care Teams Narrow Gauge Operator Relationship Specialty Start Date End Date Tala Anderson NP [address] [place] [address] PCP - General Family Medicine 08/29/23 documented as of this encounter
--- OUTSIDE RECORDS SUMMARY | 2025-02-28 17:53 | XMS_ITS | Encounter Summary ---
Author Organization [employer] [facility] Address [address] [place] [address] [place] [address] Care Team Providers Care Radiator Specialist Name Role Phone Gin Colby Primary Care Provider [phone] Tala Anderson NP Primary Care Provider [phone] Reason for Visit * Reason Comments Med Refill Encounter Details Date Type Department Care Team (Late st Contact Info) Description 05/15/2023 Refill [facility] MEDICINE [address] [place] [address] Gin Colby FNP [address] [place] [address] [place] [address] Social History Tobacco Use Types Packs/Day Years Used Date Smoking Tobacco: Former Smokeless Tobacco: Never Comments:Vape 5% nicotine Alcohol Use Standard Drinks/Week Comments Never 0 (1 standard drink = 0.6 oz pur e alcohol) Comments Unknown Sex and Gender Information Value [...] Noted Time PHQ-9 Depression Total Score: 17 023 11:12 AM EDT documented as of this encounter Care Teams Radiator Specialist Relationship Specialty Start Date End Date Gin Colby FNP PCP - General Family Medicine 07/18/22 08/28/23 Tala Anderson NP 230 [place] [address] PCP - General Family Medicine 08/29/23 documented as of this encounter
--- OUTSIDE RECORDS SUMMARY | 2025-02-28 17:53 | XMS_ITS | Encounter Summary ---
Author Organization [employer] [facility] [place] [facility] Address 75 [facility] 7 [place] [address] Care Team Providers Care Kitchen Food Assembler Name Role Phone Tala Anderson NP Primary Care Provider [phone] Reason for Visit * Reason Onset Date Comments Med Refill Appointment 06/01/2024 Unable to LVM-Re : her apt for today as [id number] @9:30am Encounter Details Date Type Department Care Team (Late st Contact Info) Description 06/01/2024 Refill [facility] MEDICINE 230 [place], [place] [phone] Tala Anderson NP 230 [place] [address] Stomach pain Social History Tobacco Use Types [...] documented as of this encounter Care Teams Kitchen Food Assembler Relationship Specialty Start Date End Date Tala Anderson NP 230 [place] [address] PCP - General Family Medicine 08/29/23 documented as of this encounter
--- OUTSIDE RECORDS SUMMARY | 2025-02-28 17:53 | XMS_ITS | Encounter Summary ---
Author Organization [employer] [facility] Address 75 [facility] 7 [place] [address] Care Team Providers Care Bench Hand Machine Name Role Phone Tala Anderson NP Primary Care Provider [phone] Reason for Visit * Reason Onset Date Comments Med Refill 06/21/2024 Ph# not accepting calls at this time 06/21/2024 Encounter Details Date Type Department Care Team ([facility] st Contact Info) Description 06/21/2024 Telephone [facility] MEDICINE 230 [place], [place] [phone] Tala Anderson NP 230 [place] [address] Med Refill; Ph# not accepting calls at this time Social History Tobacco Use Types Packs/Day Years [...] encounter Miscellaneous Notes * Telephone Encounter - Tamia Dudley - 06/21/2024 12:45 PM EDT TC from pt requesting medication refill. Medications needing refill : traMADol (Ultram) 50 MG tablet To be sent to: [facility] #[id number] PT IS ALSO REQUESTING A CALL BACK INN ORDER TO R/S MECHANIC AND WELDER APPT documented in this encounter Plan of Treatment Not on file documented as of this encounter Visit Diagnoses Not on filedocumented in this encounter Additional Health Concerns Assessment Noted Time PHQ-9 Depression Total Score: 0 01/28/20 24 2:14 PM EST documented as of this encounter Care Teams Bench Hand Machine Relationship Specialty Start Date End Date Tala Anderson NP [address] [place] [address] PCP - General Family Medicine 08/29/23 documented as of this encounter
--- OUTSIDE RECORDS SUMMARY | 2025-02-28 17:53 | XMS_ITS | Encounter Summary ---
Author Organization [employer] [facility] Address 75 [facility] 7t [place] [address] Care Team Providers Care Health Care / Medical Job Titles Name Role Phone Tala Anderson NP Primary Care Provider [phone] Reason for Visit * Reason Onset Date Comments Med Refill 09/06/2024 Encounter Details Date Type Department Care Team ([facility] st Contact Info) Description 09/06/2024 Refill [facility] MEDICINE 230 [place] [address] Tala Anderson NP 230 [place] [address] Neuropathy Social History Tobacco Use Types Packs/Day [...] documented as of this encounter Care Teams Health Care / Medical Job Titles Relationship Specialty Start Date End Date Tala Anderson NP [address] [place] [address] PCP - General Family Medicine 08/29/23 documented as of this encounter
--- OUTSIDE RECORDS SUMMARY | 2025-02-28 17:54 | XMS_ITS | Encounter Summary ---
Author Organization [employer] [facility] Address [address] [place] [address] 7 [place] [address] Care Team Providers Care High School Social Science Teacher Name Role Phone Tala Anderson LINDA Primary Care Provider Reason for Visit * Reason Onset Date Comments Med Refill Appointment 09/22/2023 - [facility] Encounter Details Date Type Department Care Team (Late st Contact Info) Description 09/22/2023 Refill [facility] MEDICINE 230 [place] [address] Deon Hale FNP PTSD (post-traumatic stress disorder); Mood disorder (CMS/HCC) Social History Tobacco Use Types Packs/Day Years [...] encounter Miscellaneous Notes * Telephone Encounter - Anya Romeo MA - 09/26/2023 10:34 AM EDT T/c placed to pt and her phone # is not active at this time. This call was regarding to re-scheduleher apt as tele-visit.MOE. documented in this encounter Plan of Treatment Not on file documented as of this encounter Visit Diagnoses Diagnosis PTSD (post-traumatic stress disorder) Posttraumatic stress disorder Mood disorder (CMS/HCC) Unspecified episodic mood disorder documented in this encounter Additional Health Concerns Assessment Noted Time PHQ-9 Depression Total Score: 10 023 11:00 AM EDT documented as of this encounter Care Teams High School Social Science Teacher Relationship Specialty Start Date End Date Tala Anderson NP [address] [place] [address] PCP - General Family Medicine 08/29/23 documented as of this encounter
--- OUTSIDE RECORDS SUMMARY | 2025-02-28 17:54 | XMS_ITS | Encounter Summary ---
Author Organization [employer] [facility] Address [address] [facility] 7t [place] [address] Care Team Providers Care Clinic Manager Name Role Phone Tala Anderson NP Primary Care Provider [phone] Reason for Visit * Reason Onset Date Comments Med Refill 12/07/2024 Encounter Details Date Type Department Care Team ([facility] st Contact Info) Description 12/07/2024 Telephone [facility] MEDICINE 230 [place] [address] Tala Anderson NP 230 [place] [address] Med Refill Social History Tobacco Use Types Packs/Day Years [...] Telephone Encounter - Lilo Acosta RN - 12/07/2024 3:31 PM EST Duplicate request, was sent to PCP this morning. * Telephone Encounter - Sharyn Art - 12/07/2024 1:11 PM EST TC from pt requesting medication refill. Medications needing refill : traMADol (Ultram) 50 MG tablet To be sent to: [facility] #[id number] documented in this encounter Plan of Treatment Not on file documented as of this encounter Visit Diagnoses Not on filedocumented in this encounter Additional Health Concerns Assessment Noted Time PHQ-9 Depression Total Score: 0 01/28/20 24 2:14 PM EST documented as of this encounter Care Teams Clinic Manager Relationship Specialty Start Date End Date Tala Anderson NP [address] [place] [address] PCP - General Family Medicine 08/29/23 documented as of this encounter
--- OUTSIDE RECORDS SUMMARY | 2025-02-28 17:54 | XMS_ITS | Encounter Summary ---
Author Organization [employer] [facility] Address 75 [facility] 7t [place] [address] Care Team Providers Care Double Corner Cutter Name Role Phone Tala Anderson NP Primary Care Provider [phone] Reason for Visit * Reason Onset Date Comments Med Refill 12/07/2024 Encounter Details Date Type Department Care Team ([facility] st Contact Info) Description 12/07/2024 Telephone [facility] MEDICINE 230 [place] [address] Tala Anderson NP 230 [place] [address] Med Refill Social History Tobacco Use Types [...] encounter Miscellaneous Notes * Telephone Encounter - Nae Menendez LPN - 12/07/2024 1:50 PM EST Gabapentin was sent to [facility] #[id number] on 11/10/24 with 1 refill and Ambien sold on 11/18/24 #28 to soon for refill. GENERAL SCIENCE TEACHER checked on 12/07/24. * Telephone Encounter - Sharyn Art - 12/07/2024 1:09 PM EST TC from pt requesting medication refill. Medications needing refill : zolpidem (Ambien) 10 MG tablet gabapentin (Neurontin) 300 MG capsule To be sent to: [facility] #[id number] documented in this encounter Plan of Treatment Not on file documented as of this encounter Visit Diagnoses Not on filedocumented in this encounter Additional Health Concerns Assessment Noted Time PHQ-9 Depression Total Score: 0 01/28/20 24 2:14 PM EST documented as of this encounter Care Teams Double Corner Cutter Relationship Specialty Start Date End Date Tala Anderson NP [address] [place] [address] PCP - General Family Medicine 08/29/23 documented as of this encounter
--- OUTSIDE RECORDS SUMMARY | 2025-02-28 17:54 | XMS_ITS | Encounter Summary ---
Author Organization [employer] [facility] Address 75 [facility] 7t [place] [address] Care Team Providers Care Coat Baster Name Role Phone Tala Anderson LINDA Primary Care Provider [phone] Reason for Visit * Reason Comments Med Refill Encounter Details Date Type Department Care Team ([facility] st Contact Info) Description 11/26/2024 Refill [facility] MEDICINE 230 [place], [place] [phone] Name, MD Ward 230 [place] [address] Stomach pain Social History Tobacco Use Types [...] documented as of this encounter Care Teams Coat Baster Relationship Specialty Start Date End Date Tala Anderson NP [address] [place] [address] PCP - General Family Medicine 08/29/23 documented as of this encounter
--- OUTSIDE RECORDS SUMMARY | 2025-02-28 17:54 | XMS_ITS | Encounter Summary ---
Author Organization [employer] [facility] Address 75 [facility] 7t [place] [address] Care Team Providers Care Patternmaker All Around Name Role Phone Tala Anderson NP Primary Care Provider [phone] Reason for Visit * Reason Onset Date Comments Med Refill 12/06/2024 Encounter Details Date Type Department Care Team (Late st Contact Info) Description 12/06/[address] [facility] MEDICINE 230 [place] [address] Tala Anderson NP 230 [place] [address] Neuropathy; PTSD (post-traumatic stress disorder) Social History Tobacco [...] Diagnoses Diagnosis Neuropathy Mononeuritis of unspecified site PTSD (post-traumatic stress disorder) Posttraumatic stress disorder documented in this encounter Additional Health Concerns Assessment Noted Time PHQ-9 Depression Total Score: 0 01/28/20 24 2:14 PM EST documented as of this encounter Care Teams Patternmaker All Around Relationship Specialty Start Date End Date Tala Anderson NP [address] [place] [address] PCP - General Family Medicine 08/29/23 documented as of this encounter
--- OUTSIDE RECORDS SUMMARY | 2025-02-28 17:54 | XMS_ITS | Encounter Summary ---
Author Organization [employer] [facility] Address 75 [facility] 7t [place] [address] Care Team Providers Care Yacht Master Name Role Phone Tala Anderson LINDA Primary Care Provider [phone] Reason for Visit * Reason Comments Med Refill Encounter Details Date Type Department Care Team ([facility] st Contact Info) Description 12/07/2024 Refill [facility] MEDICINE 230 [place], [place] [phone] Name, MD Ward 230 [place] [address] Stomach pain Social History Tobacco Use Types [...] documented as of this encounter Care Teams Yacht Master Relationship Specialty Start Date End Date Tala Anderson NP [address] [place] [address] PCP - General Family Medicine 08/29/23 documented as of this encounter
[2025-02-28 20:48] LABS: Alanine Aminotransferase 22 U/L (0-31); Albumin Level 3.7 g/dL (3.5-5.0); Alkaline Phosphatase 50 U/L (39-117); Anion Gap 9 (12-20); Aspartate Amino Transferase 22 U/L (5-31); Bilirubin Total 0.3 mg/dL (0.0-1.0); Blood Urea Nitrogen 16 mg/dL (9-16); Calcium 8.8 mg/dL (8.4-10.2); Carbon Dioxide 25 mmol/L (22-29); Chloride 111 mmol/L (96-108); Estimated Glomerular Filt Rate > 60; Glucose Random 80 mg/dL (60-115); Potassium 4.1 mmol/L (3.3-5.1); Sodium 141 mmol/L (135-145); Total Protein 6.7 g/dL (6.5-8.0)
[2025-03-01 12:13] LABS: Retic HGB Equivalent 27.9 pg (30.0-35.0); Reticulocyte Percent 0.7 % (0.5-1.8); Reticulocytes Absolute 0.026 X10*6/uL (0.026-0.095)
[2025-03-01 12:30] LABS: Iron 30 mcg/dL (30-160); Percent Iron Saturation 9 % (15-50); Total Iron Binding Capacity 324 mcg/dL (228-428); Unsaturated Iron Binding 294 ug/dL
[2025-03-01 12:45] LABS: Ferritin 6 ng/mL (10-250)
== END 2025-02-28 15:02 | disposition home or self-care (01) ==
LOC: HO.HHCL 15:01
PROVIDERS: Visit Provider Nurse Practitioner
DX: Z01.818 Encounter for other preprocedural examination (principal)
CPT/HCPCS: 36415; 80053; 82728; 83540; 85025; 85045; 85610; 85730

== ENCOUNTER 2025-03-03 15:59 | Outpatient (REF) | payer MEDICAID, SELFPAY ==
--- NOTE | ~2025-03-03 | MM_ITS ---
EXAMINATION: MM SCREENING DIGITAL BREAST TOMOSYNTHESIS, BILATERAL CLINICAL INFORMATION: Screening. Asymptomatic. COMPARISON: Mammography: Baseline. TECHNIQUE: Digital breast mammography with tomosynthesis is performed in both the craniocaudal and mediolateral oblique views along with computer-aided detection (CAD). FINDINGS: The breasts are extremely dense, which lowers the sensitivity of mammography (ACR BI-RADS breast composition Category d). There are no significant masses, abnormal calcifications, or other abnormalities. MM/MM tomosynthesis screening BI IMPRESSION: No mammographic evidence of malignancy. ASSESSMENT: BI-RADS BI-RADS 1 - Negative RECOMMENDATION: Routine annual mammography screening. 1 year F/U This examination should not preclude the clinical evaluation of a suspicious palpable abnormality. This patient's information was entered into a reminder system with a target due date for their next mammogram. Electronically signed by: Little Mario DO 03/04/2025 12:53 PM EDT
--- OUTSIDE RECORDS SUMMARY | 2025-03-03 17:57 | XMS_ITS | Encounter Summary ---
Author Organization [employer] [facility] Address 75 [facility] 7t [place] [address] Care Team Providers Care Roller Gold Leaf Name Role Phone Tala Anderson NP Primary Care Provider Reason for Visit * Reason Onset Date Comments Med Refill 06/17/2024 Encounter Details Date Type Department Care Team ([facility] st Contact Info) Description 06/17/2024 Refill [facility] MEDICINE 230 [place] [address] Tala Anderson NP 230 [place] [address] Stomach pain Social History Tobacco Use Types [...] documented as of this encounter Care Teams Roller Gold Leaf Relationship Specialty Start Date End Date Tala Anderson NP [address] [place] [address] PCP - General Family Medicine 08/29/23 documented as of this encounter
--- OUTSIDE RECORDS SUMMARY | 2025-03-03 17:57 | XMS_ITS | Encounter Summary ---
Author Organization [employer] [facility] Address 75 [facility] 7t [place] [address] Care Team Providers Care Stitcher Special Machine Name Role Phone Tala Anderson NP Primary Care Provider [phone] Reason for Visit * Reason Comments Med Refill Encounter Details Date Type Department Care Team ([facility] st Contact Info) Description 09/13/2024 Refill [facility] MEDICINE 230 [place] [address] Tala Anderson NP 230 [place] [address] PTSD (post-traumatic stress disorder) Social History Tobacco [...] documented as of this encounter Care Teams Stitcher Special Machine Relationship Specialty Start Date End Date Tala Anderson NP [address] [place] [address] PCP - General Family Medicine 08/29/23 documented as of this encounter
--- OUTSIDE RECORDS SUMMARY | 2025-03-03 17:57 | XMS_ITS | Encounter Summary ---
Author Organization [employer] [facility] Address [address] [facility] 7 [place] [address] Care Team Providers Care Harness Preparer Name Role Phone Tala Anderson NP Primary Care Provider [phone] Reason for Visit * Reason Onset Date Comments Med Refill 06/21/2024 Ph# not accepting calls at this time 06/21/2024 Encounter Details Date Type Department Care Team ([facility] st Contact Info) Description 06/21/2024 Telephone [facility] MEDICINE 230 [place], [place] [phone] Tala Anderson NP 230 [place] [address] Med Refill; Ph# not accepting calls at [...] 50 MG tablet To be sent to: [facility] #[id number] PT IS ALSO REQUESTING A CALL BACK INN ORDER TO R/S ICT SALES ASSISTANT APPT documented in this encounter Plan of Treatment Not on file documented as of this encounter Visit Diagnoses Not on filedocumented in this encounter Additional Health Concerns Assessment Noted Time PHQ-9 Depression Total Score: 0 01/28/20 24 2:14 PM EST documented as of this encounter Care Teams Harness Preparer Relationship Specialty Start Date End Date Tala Anderson NP [address] [place] [address] PCP - General Family Medicine 08/29/23 documented as of this encounter
--- OUTSIDE RECORDS SUMMARY | 2025-03-03 17:57 | XMS_ITS | Encounter Summary ---
Author Organization [employer] [facility] Address [address] [facility] 7t [place] [address] Care Team Providers Care Planting Machine Crewman Name Role Phone Tala Anderson NP Primary Care Provider [phone] Encounter Details Date Type Department Care Team (Late st Contact Info) Description 10/12/2024 Telephone [facility] MEDICINE 230 [place], [place] [phone] Tala Anderson NP 230 [place], [place] [phone] Social History Tobacco Use Types Packs/Day Years [...] documented as of this encounter Care Teams Planting Machine Crewman Relationship Specialty Start Date End Date Tala Anderson NP 230 [place] [address] PCP - General Family Medicine 08/29/23 documented as of this encounter
--- OUTSIDE RECORDS SUMMARY | 2025-03-03 17:57 | XMS_ITS | Encounter Summary ---
Author Organization [employer] [facility] Address 75 [facility] 7 [place] [address] Care Team Providers Care Patient Sitter Name Role Phone Tala Anderson NP Primary Care Provider [phone] Reason for Visit * Reason Onset Date Comments Med Refill Appointment 06/01/2024 Unable to LVM-Re : her apt for today as [id number]-FQ-RV @9:30am Encounter Details Date Type Department Care Team (Late st Contact Info) Description 06/01/2024 Refill [facility] MEDICINE 230 [place], [place] [phone] Tala Anderson NP 230 [place] [address] Stomach pain Social History Tobacco Use Types [...] documented as of this encounter Care Teams Patient Sitter Relationship Specialty Start Date End Date Tala Anderson NP 230 [place] [address] PCP - General Family Medicine 08/29/23 documented as of this encounter
--- OUTSIDE RECORDS SUMMARY | 2025-03-03 17:57 | XMS_ITS | Encounter Summary ---
Author Organization [employer] [facility] Address [address] [place] [address] [place] [address] Care Team Providers Care Freezing Room Worker Name Role Phone Gin Colby Primary Care Provider [phone] Tala Anderson NP Primary Care Provider [phone] Encounter Details Date Type Department Care Team (Late st Contact Info) Description 12/16/2022 Orders Only [facility] MEDICINE 230 [place] [address] Gin Colby FNP [address] [place] [address] Dept [place] [address] Neuropathy Social History Tobacco Use Types Packs/Day [...] documented as of this encounter Care Teams Freezing Room Worker Relationship Specialty Start Date End Date Gin Colby FNP PCP - General Family Medicine 07/18/22 08/28/23 Tala Anderson NP 230 [place] [address] PCP - General Family Medicine 08/29/23 documented as of this encounter
--- OUTSIDE RECORDS SUMMARY | 2025-03-03 17:57 | XMS_ITS | Encounter Summary ---
Author Organization [employer] [facility] Address 75 [facility] 7t [place] [address] Care Team Providers Care Phlebotomist Lab Assistant Name Role Phone Tala Anderson NP Primary Care Provider [phone] Reason for Visit * Reason Onset Date Comments Med Refill 09/02/2024 Encounter Details Date Type Department Care Team ([facility] st Contact Info) Description 09/02/2024 Refill [facility] MEDICINE 230 [place] [address] Tala Anderson NP 230 [place] [address] Neuropathy Social History Tobacco Use Types Packs/Day [...] documented as of this encounter Care Teams Phlebotomist Lab Assistant Relationship Specialty Start Date End Date Tala Anderson NP [address] [place] [address] PCP - General Family Medicine 08/29/23 documented as of this encounter
--- OUTSIDE RECORDS SUMMARY | 2025-03-03 17:57 | XMS_ITS | Encounter Summary ---
Author Organization [employer] [facility] Address [address] [facility] 7t [place] [address] Care Team Providers Care Motor Vehicle Examiner Name Role Phone Tala Anderson NP Primary Care Provider [phone] Reason for Visit * Reason Comments Med Refill Encounter Details Date Type Department Care Team ([facility] st Contact Info) Description 08/07/2024 Refill [facility] MEDICINE 230 [place] [address] Tala Anderson NP 230 [place] [address] Stomach pain Social History Tobacco Use Types [...] documented as of this encounter Care Teams Motor Vehicle Examiner Relationship Specialty Start Date End Date Tala Anderson NP [address] [place] [address] PCP - General Family Medicine 08/29/23 documented as of this encounter
--- OUTSIDE RECORDS SUMMARY | 2025-03-03 17:57 | XMS_ITS | Encounter Summary ---
Author Organization [employer] [facility] Address 75 [facility] 7t [place] [address] Care Team Providers Care Physical Aerodynamicist Name Role Phone Tala Anderson NP Primary Care Provider [phone] Reason for Visit * Reason Onset Date Comments Med Refill 08/25/2024 Encounter Details Date Type Department Care Team ([facility] st Contact Info) Description 08/25/2024 Refill [facility] MEDICINE 230 [place] [address] Tala Anderson NP [address] [place] [address] Neuropathy Social History Tobacco Use Types Packs/Day [...] as of this encounter Care Teams Physical Aerodynamicist Relationship Specialty Start Date End Date Tala Anderson NP [address] [place] [address] PCP - General Family Medicine 08/29/23 documented as of this encounter
--- OUTSIDE RECORDS SUMMARY | 2025-03-03 17:57 | XMS_ITS | Encounter Summary ---
Author Organization [employer] [facility] Address [address] [facility] 7t [place] [address] Care Team Providers Care Public Health Veterinarian Name Role Phone Tala Anderson NP Primary Care Provider Reason for Visit * Reason Onset Date Comments Med Refill 09/15/2024 Encounter Details Date Type Department Care Team ([facility] st Contact Info) Description 09/15/2024 Refill [facility] MEDICINE 230 [place] [address] Tala Anderson NP 230 [place] [address] Neuropathy Social History Tobacco Use Types Packs/Day [...] documented as of this encounter Care Teams Public Health Veterinarian Relationship Specialty Start Date End Date Tala Anderson NP [address] [place] [address] PCP - General Family Medicine 08/29/23 documented as of this encounter
--- OUTSIDE RECORDS SUMMARY | 2025-03-03 17:57 | XMS_ITS | Encounter Summary ---
Author Organization [employer] [facility] Address 75 [facility] 7t [place] [address] Care Team Providers Care Warehouse Order Filler Name Role Phone Tala Anderson NP Primary Care Provider [phone] Reason for Visit * Reason Onset Date Comments Med Refill Schedule SANITATION TRUCK CLEANER appt 06/17/2024 Encounter Details Date Type Department Care Team (Late st Contact Info) Description 06/17/2024 Refill [facility] MEDICINE 230 [place], [place] [phone] Tala Anderson NP 230 [place] [address] Stomach pain Social History Tobacco Use Types [...] and tramadol only when necessary. Needs toschedule SANITATION TRUCK CLEANER appointment for further refill. * Telephone Encounter - Lilo Acosta RN - 06/17/2024 11:01 AM EDT TC to patient, no answer. Unable to leave , mailbox full. Pt cancelled SANITATION TRUCK CLEANER RV appts 06/09/24 & 06/14/24 and has [...] documented as of this encounter Care Teams Warehouse Order Filler Relationship Specialty Start Date End Date Tala Anderson NP 230 [place] [address] PCP - General Family Medicine 08/29/23 documented as of this encounter
--- OUTSIDE RECORDS SUMMARY | 2025-03-03 17:57 | XMS_ITS | Encounter Summary ---
Author Organization [employer] [facility] Address [address] [facility] 7t [place] [address] Care Team Providers Care Lasting Machine Operator Name Role Phone Tala Anderson NP Primary Care Provider [phone] Reason for Visit * Reason Onset Date Comments Med Refill 08/16/2024 Encounter Details Date Type Department Care Team (Late st Contact Info) Description 08/16/2024 Refill [facility] MEDICINE 230 [place] [address] Tala Anderson NP 230 [place] [address] Stomach pain Social History Tobacco Use Types [...] Miscellaneous Notes * Telephone Encounter - Tala Adnerson NP - 08/20/2024 4:02 PM EDT Signed [...] documented as of this encounter Care Teams Lasting Machine Operator Relationship Specialty Start Date End Date Tala Anderson NP 230 [place] [address] PCP - General Family Medicine 08/29/23 documented as of this encounter
--- OUTSIDE RECORDS SUMMARY | 2025-03-03 17:57 | XMS_ITS | Encounter Summary ---
Author Organization [employer] [facility] Address [address] [facility] 7t [place] [address] Care Team Providers Care Assistant Professor Of Sociology Name Role Phone Tala Anderson NP Primary Care Provider [phone] Reason for Visit * Reason Comments Med Refill Encounter Details Date Type Department Care Team ([facility] st Contact Info) Description 10/25/2024 Refill [facility] MEDICINE [address] [place] [address] Tala Anderson NP 230 [place] [address] Stomach pain Social History Tobacco Use Types [...] documented as of this encounter Care Teams Assistant Professor Of Sociology Relationship Specialty Start Date End Date Tala Anderson NP [address] [place] [address] PCP - General Family Medicine 08/29/23 documented as of this encounter
--- OUTSIDE RECORDS SUMMARY | 2025-03-03 17:57 | XMS_ITS | Encounter Summary ---
Author Organization [facility] [facility] Address [address] [facility] 7t [place] [address] Care Team Providers Care Ict Security Specialist Name Role Phone Tala Anderson LINDA Primary Care Provider [phone] Encounter Details Date Type Department Care Team [...] documented as of this encounter Care Teams Ict Security Specialist Relationship Specialty Start Date End Date Tala Anderson NP [address] [place] [address] PCP - General Family Medicine 08/29/23 documented as of this encounter
--- OUTSIDE RECORDS SUMMARY | 2025-03-03 17:57 | XMS_ITS | Encounter Summary ---
Author Organization [employer] [facility] Address [address] [facility] 7t [place] [address] Care Team Providers Care Bit Setter Name Role Phone Tala Anderson NP Primary Care Provider [phone] Reason for Visit * Reason Onset Date Comments Med Refill 09/06/2024 Encounter Details Date Type Department Care Team ([facility] st Contact Info) Description 09/06/2024 Refill [facility] MEDICINE 230 [place] [address] Tala Anderson NP 230 [place] [address] Neuropathy Social History Tobacco Use Types Packs/Day [...] documented as of this encounter Care Teams Bit Setter Relationship Specialty Start Date End Date Tala Anderson NP [address] [place] [address] PCP - General Family Medicine 08/29/23 documented as of this encounter
--- OUTSIDE RECORDS SUMMARY | 2025-03-03 17:57 | XMS_ITS | Encounter Summary ---
Author Organization [employer] [facility] Address [address] [facility] 7t [place] [address] Care Team Providers Care Mail Truck Driver Name Role Phone Tala Anderson NP Primary Care Provider [phone] Reason for Visit * Reason Onset Date Comments Med Refill 06/11/2024 Encounter Details Date Type Department Care Team ([facility] st Contact Info) Description 06/11/2024 Refill [facility] MEDICINE 230 [place] [address] Tala Anderson NP 230 [place] [address] Neuropathy Social History Tobacco Use Types Packs/Day [...] documented as of this encounter Care Teams Mail Truck Driver Relationship Specialty Start Date End Date Tala Anderson NP [address] [place] [address] PCP - General Family Medicine 08/29/23 documented as of this encounter
--- OUTSIDE RECORDS SUMMARY | 2025-03-03 17:57 | XMS_ITS | Encounter Summary ---
Author Organization [employer] [facility] Address [address] [facility] 7t [place] [address] Care Team Providers Care Sec Accountant Name Role Phone Tala Anderson NP Primary Care Provider [phone] Reason for Visit * Reason Onset Date Comments Med Refill 05/04/2024 Encounter Details Date Type Department Care Team (Late st Contact Info) Description 05/04/2024 Refill [facility] MEDICINE 230 [place] [address] Tala Anderson NP 230 [place] [address] Stomach pain Social History Tobacco Use Types [...] documented as of this encounter Care Teams Sec Accountant Relationship Specialty Start Date End Date Tala Anderson NP [address] [place] [address] PCP - General Family Medicine 08/29/23 documented as of this encounter
--- OUTSIDE RECORDS SUMMARY | 2025-03-03 17:57 | XMS_ITS | Encounter Summary ---
Author Organization [employer] [facility] Address [address] [facility] 7t [place] [address] Care Team Providers Care Compressed Gas Plant Worker Name Role Phone Tala Anderson NP Primary Care Provider [phone] Reason for Visit * Reason Comments Pre-op Exam Encounter Details Date Type Department Care Team (Late st Contact Info) Description 02/28/2025 2:00 PM EDT Office Visit [facility] MEDICINE 230 [place] [address] Tala Anderson NP 230 [place] [address] Pre-op examination (Primary Dx) Social History Tobacco [...] on file documented as of this encounter Procedures Procedure Name Priority Date/Time Associated Diagnosis Comments CBC WITH AUTO DIFFERENTIAL Routine 02/28/2025 3:11 PM EDT Pre-op examination APTT Routine 02/28/2025 3:11 PM EDT Pre-op examination PROTHROMBIN TIME-INR Routine 02/28/2025 3:11 PM EDT Pre-op examination COMPREHENSIVE METABOLIC PANEL Routine 02/28/2025 3:11 PM EDT Pre-op examination documented in this encounter Results * Partial Thromboplastin Time, Activated (APTT) (02/28/2025 3:11 PM EDT) Partial Thromboplastin Time 27.8 26.0 - 36.8 SEC [facility] Comment:For information rega rding the monitoring of direct thrombininhibitors, please refer to Pharmacy. Blood Venous blood specimen / Unknown 02/28/2025 3:11 PM EDT 02/28/2025 4:07 PM EDT [facility] Final Resu lt Performing Organization Address City/[facility] de Phone Number [facility] [address] [place] [phone] * Prothrombin Time-INR (02/28/2025 3:11 PM EDT) Prothrombin Time 11.5 10.9 - 12.4 SEC [facility] INTERNATIONAL NORM RATIO 1.0 0.9 - 1.1 [facility] Comment:INTERNATIONAL NORMAL IZED RATIO (INR) [...] 3:11 PM EDT 02/28/2025 4:07 PM EDT [facility] LAB BLOOD ORDERABLES Final Resu lt Performing Organization Address City/[facility]/ZIP Co de Phone Number [facility] [address] [place], [place] [phone] * (ABNORMAL) CBC auto differential (02/28/2025 3:11 PM EDT) White Blood Count 5.0 4.8 - 10.8 X10*3/uL [facility] Red Blood Count 3.58(L) 4.20 - 5.50 X10*6/uL [facility] Hemoglobin 9.6(L) 12.0 - 16.0 g/dl [facility] Hematocrit 31.4(L) 37.0 - 47.0 % [facility] Mean Corpuscular Volume 87.7 80.0 - 98.0 fL [facility] Mean Corpuscular Hemoglobin 26.8(L) 27.0 - 33.0 pg [facility] Mean Corpuscular HGB Conc 30.6(L) 31.0 - 35.0 g/dl [facility] Red Cell Distribution Width 15.1 11.0 - 16.0 % [facility] Platelet Count 274 160 - 400 X10*3/uL [facility] Mean Platelet Volume 11.6 9.4 - 12.3 fL [facility] Neutrophils Percent Auto 45.6 45 - 73 % [facility] Imm Gran Pct Auto 0.2 0.0 - 0.4 % [facility] Lymphocytes Percent Auto 35.8 20 - 40 % [facility] Monocytes Percent Auto 11.8(H) 2 - 11 % [facility] Eosinophils Percent Auto 5.8(H) 0 - 4 % [facility] Basophils Percent Auto 0.8 0 - 2 % [facility] NRBC Pct Auto 0.0 0.0 - 0.2 /100WBC [facility] Neutrophils Absolute Auto 2.3 2.0 - 8.3 x10*3/uL [facility] Imm Gran Abs Auto 0.01 0.00 - 0.03 X10*3/uL [facility] Lymphocytes Absolute Auto 1.8 1.2 - 4.9 X10*3/uL [facility] Monocytes Absolute Auto 0.6 0.1 - 1.2 X10*3/uL [facility] Eosinophils Absolute Auto 0.3 0.0 - 0.4 X10*3/uL [facility] Basophils Absolute Auto 0.0 0.0 - 0.2 X10*3/uL [facility] NRBC Abs Auto 0.000 0.0 - 0.012 X10*3/uL [facility] Blood Venous blood specimen / Unknown 02/28/2025 3:11 PM EDT 02/28/2025 4:07 PM EDT us Tala Anderson [facility] LAB BLOOD ORDERABLES Final Resu lt [facility] [address] [place] [address] [phone] * (ABNORMAL) Comprehensive Metabolic Panel (02/28/2025 3:11 PM EDT) Sodium 141 135 - 145 mmol/L [facility] Potassium 4.1 3.3 - 5.1 mmol/L [facility] Chloride 111(H) 96 - 108 mmol/L [facility] Carbon Dioxide 25 22 - 29 mmol/L [facility] Anion Gap 9(L) 12 - 20 [facility] Urea Nitrogen (BUN) 16 9 - 16 mg/dL [facility] Creatinine, Serum 0.74 0.5 - 1.4 mg/dL [facility] Estimated Glomerular Filt Rate >60 [facility] Comment:Chronic Kidney Disea se: Estimated GFR < 60 mL/min/1.02u9Ukzceh Kidney Disease: Estimated GFR < 15 mL/min/1.73m2 Glucose 80 60 - 115 mg/dL [facility] Calcium 8.8 8.4 - 10.2 mg/dL [facility] Bilirubin, Total 0.3 0.0 - 1.0 mg/dL [facility] Aspartate Amino Transferase 22 5 - 31 U/L [facility] Alanine Aminotransferase 22 0 - 31 U/L [facility] Total Protein 6.7 6.5 - 8.0 g/dL [facility] Albumin Level 3.7 3.5 - 5.0 g/dL [facility] Alkaline Phosphatase 50 39 - 117 U/L [facility] Blood Venous blood specimen / Unknown 02/28/2025 3:11 PM EDT 02/28/2025 4:07 PM EDT Tala Anderson [facility] LAB BLOOD ORDERABLES Final Resu lt [facility] [address] [place] [address] [phone] documented in this encounter Visit Diagnoses Diagnosis Pre-op examination- Primary documented in this encounter Additional Health Concerns Assessment Noted Time PHQ-9 Depression Total Score: 15 02/16/ 025 11:34 AM EDT documented as of this encounter Care Teams Compressed Gas Plant Worker Relationship Specialty Start Date End Date Tala Anderson NP [address] [place] [address] PCP - General Family Medicine 08/29/23 documented as of this encounter
--- OUTSIDE RECORDS SUMMARY | 2025-03-03 17:57 | XMS_ITS | Encounter Summary ---
Author Organization [facility] Address [address] [facility] 7t [place] [address] Care Team Providers Care Vocational Training Instructor Name Role Phone Tala Anderson NP Primary Care Provider [phone] Reason for Visit * Reason Onset Date Comments Medication Question 07/01/2024 Encounter Details Date Type Department Care Team ([facility] st Contact Info) Description 07/01/2024 Telephone [facility] MEDICINE 230 [place], [place] [phone] Tala Anderson NP 230 [place] [address] Medication Question Social History Tobacco Use Types [...] soon as possible. Please contact pt at [phone]. Bhutanese Speaker documented in this encounter Plan of Treatment Not on file documented as of this encounter Visit Diagnoses Diagnosis Stomach pain Dyspepsia and other specified disorders of function of stomach documented in this encounter Additional Health Concerns Assessment Noted Time PHQ-9 Depression Total Score: 0 01/28/20 24 2:14 PM EST documented as of this encounter Care Teams Vocational Training Instructor Relationship Specialty Start Date End Date Tala Anderson NP [address] [place] [address] PCP - General Family Medicine 08/29/23 documented as of this encounter
--- OUTSIDE RECORDS SUMMARY | 2025-03-03 17:57 | XMS_ITS | Encounter Summary ---
Author Organization [employer] [facility] Address [address] [place] [address] 7 [place] [address] Care Team Providers Care Auto Slip Cover Installer Name Role Phone Tala Anderson NP Primary Care Provider [phone] Reason for Visit * Reason Onset Date Comments Med Refill 12/04/2023 Appt with PCP 12/04/2023 Encounter Details Date Type Department Care Team (Late st Contact Info) Description 12/04/2023 Refill [facility] MEDICINE 230 [place] [address] Tala Anderson NP 230 [place] [address] Stomach pain Social History Tobacco Use Types [...] 50 MG tablet To be sent to: [id number] documented in this encounter Plan of Treatment Not on file documented as of this encounter Visit Diagnoses Diagnosis Stomach pain Dyspepsia and other specified disorders of function of stomach documented in this encounter Additional Health Concerns Assessment Noted Time PHQ-9 Depression Total Score: 023 11:00 AM EDT documented as of this encounter Care Teams Auto Slip Cover Installer Relationship Specialty Start Date End Date Tala Anderson NP [address] [place] [address] PCP - General Family Medicine 08/29/23 documented as of this encounter
--- OUTSIDE RECORDS SUMMARY | 2025-03-03 17:57 | XMS_ITS | Encounter Summary ---
Author Organization [employer] [facility] Address [address] [place] [address] [place] [address] Care Team Providers Care Rn Ostomy Name Role Phone Gin Colby Primary Care Provider [phone] Tala Anderson NP Primary Care Provider [phone] Reason for Visit * Reason Comments Med Refill Encounter Details Date Type Department Care Team (Late st Contact Info) Description 05/15/[address] [facility] MEDICINE 230 [place] [address] Gin Colby FNP [address] [place] [address] Dept [place] [address] Social History Tobacco Use Types Packs/Day Years [...] documented as of this encounter Care Teams Rn Ostomy Relationship Specialty Start Date End Date Gin Colby FNP PCP - General Family Medicine 07/18/22 08/28/23 Tala Anderson NP 230 [place] [address] PCP - General Family Medicine 08/29/23 documented as of this encounter
--- OUTSIDE RECORDS SUMMARY | 2025-03-03 17:57 | XMS_ITS | Encounter Summary ---
Author Organization [employer] [facility] Address [address] [facility] 7t [place] [address] Care Team Providers Care Automatic Thread Winder Name Role Phone Tala Anderson NP Primary Care Provider [phone] Reason for Visit * Reason Onset Date Comments Med Refill 08/12/2024 Encounter Details Date Type Department Care Team (Late st Contact Info) Description 08/12/2024 Refill [facility] MEDICINE 230 [place] [address] Tala Anderson NP 230 [place] [address] Stomach pain Social History Tobacco Use Types [...] documented as of this encounter Care Teams Automatic Thread Winder Relationship Specialty Start Date End Date Tala Anderson NP [address] [place] [address] PCP - General Family Medicine 08/29/23 documented as of this encounter
--- OUTSIDE RECORDS SUMMARY | 2025-03-03 17:57 | XMS_ITS | Encounter Summary ---
Author Organization [employer] Address [address] [place] [address] 7t [place] [address] Care Team Providers Care Fire Extinguisher Repairer Inspector Name Role Phone Tala Anderson NP Primary Care Provider [phone] Reason for Visit * Reason Comments Med Refill Encounter Details Date Type Department Care Team ([facility] st Contact Info) Description 12/10/2023 Refill [facility] MED & PEDS [address] [place] [address] Doen Hale FNP PTSD (post-traumatic stress disorder) Social [...] documented as of this encounter Care Teams Fire Extinguisher Repairer Inspector Relationship Specialty Start Date End Date Taal Anderson NP [address] [place] [address] PCP - General Family Medicine 08/29/23 documented as of this encounter
--- OUTSIDE RECORDS SUMMARY | 2025-03-03 17:57 | XMS_ITS | Encounter Summary ---
Author Organization [employer] [facility] Address [address] [facility] 7t [place] [address] Care Team Providers Care Dirt Bike Mechanic Name Role Phone Tala Anderson NP Primary Care Provider Reason for Visit * Reason Onset Date Comments Med Refill 05/18/2024 Encounter Details Date Type Department Care Team ([facility] st Contact Info) Description 05/18/2024 Refill [facility] MEDICINE 230 [place] [address] Tala Anderson NP 230 [place] [address] Neuropathy Social History Tobacco Use Types Packs/Day [...] documented as of this encounter Care Teams Dirt Bike Mechanic Relationship Specialty Start Date End Date Tala Anderson NP [address] [place] [address] PCP - General Family Medicine 08/29/23 documented as of this encounter
--- OUTSIDE RECORDS SUMMARY | 2025-03-03 17:57 | XMS_ITS | Encounter Summary ---
Author Organization [employer] [facility] Address [address] [facility] 7t [place] [address] Care Team Providers Care Multi Spindle Operator Name Role Phone Tala Anderson NP Primary Care Provider [phone] Encounter Details Date Type Department Care Team (Late st Contact Info) Description 07/02/2024 Orders Only [facility] MEDICINE 230 [place], [place] [phone] Tala Anderson NP 230 [place] [address] Social History Tobacco Use Types Packs/Day Years [...] documented as of this encounter Care Teams Multi Spindle Operator Relationship Specialty Start Date End Date Tala Anderson NP [address] [place] [address] PCP - General Family Medicine 08/29/23 documented as of this encounter
--- OUTSIDE RECORDS SUMMARY | 2025-03-03 17:57 | XMS_ITS | Encounter Summary ---
Author Organization [employer] [facility] Address [address] [place] [address] 7t [place] [address] Care Team Providers Care Regulatory Affairs Portfolio Leader Name Role Phone Tala Anderson LINDA Primary Care Provider [phone] Reason for Visit * Reason Onset Date Comments Med Refill Schedule HEAD WRESTLING COACH Initial appt 12/03/2023 Schedu luz HEAD WRESTLING COACH Initial appt Encounter Details Date Type Department Care Team (Late st Contact Info) Description 12/03/2023 Refill [facility] WALK-IN [address] [address] Agustina Gray, ACCESS LIAISON Stomach pain Social History Tobacco Use Types [...] - 12/03/2023 12:13 PM EST TC via P/I#[id number], pt scheduled for HEAD WRESTLING COACH Initial appt 02/02/24. Advised to bring her [...] documented as of this encounter Care Teams Regulatory Affairs Portfolio Leader Relationship Specialty Start Date End Date Tala Anderson NP 230 [place] [address] PCP - General Family Medicine 08/29/23 documented as of this encounter
--- OUTSIDE RECORDS SUMMARY | 2025-03-03 17:57 | XMS_ITS | Encounter Summary ---
Author Organization [employer] [facility] Address [address] [facility] 7t [place] [address] Care Team Providers Care Log Loader Helper Name Role Phone Tala Anderson NP Primary Care Provider [phone] Reason for Visit * Reason Comments Med Refill Encounter Details Date Type Department Care Team ([facility] st Contact Info) Description 01/18/2024 Refill [facility] MEDICINE 230 [place] [address] Tala Anderson NP 230 [place] [address] Epigastric cramping Social History Tobacco Use Types [...] documented as of this encounter Care Teams Log Loader Helper Relationship Specialty Start Date End Date Tala Anderson NP [address] [place] [address] PCP - General Family Medicine 08/29/23 documented as of this encounter
--- OUTSIDE RECORDS SUMMARY | 2025-03-03 17:57 | XMS_ITS | Encounter Summary ---
Author Organization [employer] [facility] Address [address] [facility] 7t [place] [address] Care Team Providers Care Plain Clothes Police Officer Name Role Phone Tala Anderson NP Primary Care Provider [phone] Reason for Visit * Reason Onset Date Comments Med Refill 07/09/2024 Encounter Details Date Type Department Care Team (Late st Contact Info) Description 07/09/2024 Refill [facility] MEDICINE 230 [place] [address] Tala Anderson NP 230 [place] [address] Stomach pain Social History Tobacco Use Types [...] the following message from patient today via [employer]. Tala I been with horrible pain I [...] documented as of this encounter Care Teams Plain Clothes Police Officer Relationship Specialty Start Date End Date Tala Anderson NP [address] [place] [address] PCP - General Family Medicine 08/29/23 documented as of this encounter
--- OUTSIDE RECORDS SUMMARY | 2025-03-03 17:57 | XMS_ITS | Encounter Summary ---
Author Organization [employer] [facility] Address [address] [facility] 7t [place] [address] Care Team Providers Care Farm Equipment Maintenance Supervisor Name Role Phone Tala Anderson NP Primary Care Provider [phone] Reason for Visit * Reason Onset Date Comments Med Refill 05/18/2024 Encounter Details Date Type Department Care Team ([facility] st Contact Info) Description 05/18/2024 Refill [facility] MEDICINE 230 [place] [address] Tala Anderson NP 230 [place] [address] Stomach pain Social History Tobacco Use Types [...] documented as of this encounter Care Teams Farm Equipment Maintenance Supervisor Relationship Specialty Start Date End Date Tala Anderson NP [address] [place] [address] PCP - General Family Medicine 08/29/23 documented as of this encounter
--- OUTSIDE RECORDS SUMMARY | 2025-03-03 17:57 | XMS_ITS | Encounter Summary ---
Author Organization [employer] [facility] Address [address] [facility] 7t [place] [address] Care Team Providers Care Arranging Funeral Director Name Role Phone Tala Anderson LINDA Primary Care Provider [phone] Reason for Visit * Reason Comments Med Refill Encounter Details Date Type Department Care Team (Late st Contact Info) Description 06/13/2024 Refill [facility] MEDICINE 230 [place] [address] Deon Hale FNP PTSD (post-traumatic stress disorder) [...] t he electric, gas, oil or water [employer] threatened to shut off services in your [...] documented as of this encounter Care Teams Arranging Funeral Director Relationship Specialty Start Date End Date Tala Anderson NP 230 [place] [address] PCP - General Family Medicine 08/29/23 documented as of this encounter
--- OUTSIDE RECORDS SUMMARY | 2025-03-03 17:57 | XMS_ITS | Encounter Summary ---
Author Organization [employer] [facility] Address [address] [facility] 7t [place] [address] Care Team Providers Care Oil Derrick Operator Name Role Phone Tala Anderson NP Primary Care Provider [phone] Reason for Visit * Reason Comments Med Refill Encounter Details Date Type Department Care Team ([facility] st Contact Info) Description 01/13/2024 Refill [facility] MEDICINE 230 [place] [address] Tala Anderson NP 230 [place] [address] Stomach pain Social History Tobacco Use Types [...] documented as of this encounter Care Teams Oil Derrick Operator Relationship Specialty Start Date End Date Tala Anderson NP 230 [place] [address] PCP - General Family Medicine 08/29/23 documented as of this encounter
--- OUTSIDE RECORDS SUMMARY | 2025-03-03 17:57 | XMS_ITS | Clinical Summary ---
Author Organization [facility] Address [address] [place] [address] 7t [place] [address] Care Team Providers Care Information Developer Name Role Phone Justin Tala MCKEON Primary Care Provider [phone] Allergies Active Allergy Reactions Criticality Noted Date [...] abdominal pain/epigastric pain s/p gastric surgery Last AIR[employer] LO[employer]OLLER Agreement: 02/02/24 Overweight (BMI 25.0-29.9) 04/16/2024 Assessment [...] able to eat -Dr. Joann HOLDEN at [facility] performed expansion that helped for about 2 [...] but no more than that. Requesting that [facility] Clinician contact her for BE. F/U with [...] expected, pill count less than expected. See documentation coordinator for further details. Anxiety 12/10/2021 Insomnia 12/10/2021 [...] organization. Date Type Department Care Team Description 03/01/[address] [address] Tala Anderson NP Need new order 03/01/2025 Orders Only [address] [address] Tala Anderson NP Anemia, unspecified type (Primary Dx) 02/28/2025 2:00 PM EDT Office Visit [address] [address] Tala Anderson NP Pre-op examination (Primary Dx) 02/28/2025 Travel 02/23/[address] [address] Tala Anderson NP Pre-op Visit 02/16/2025 11:00 AM EDT Office Visit [address] [address] Tala Anderson NP Encounter for screening mammogram for malignant neoplasm of breast (Primary Dx); PTSD (post-traumatic stress disorder); Stomach pain 02/16/2025 Travel 02/15/2025 11:30 AM EDT Clinical Support [address] [address] Marilu Friedman RN Long-term current use of opiate analgesic (Primary Dx) 02/15/2025 Travel 02/08/[address] [address] Osiris Bonner MA chartprep 02/08/[address] [address] Tala Anderson NP Appointment Request 02/07/2025 Telephone [facility] [address] [place] [address] Lilo Acosta RN Error (VOID this visit) 02/07/2025 Telephone [facility] [address] [place] [address] Tala Anderson NP telephone call 02/05/2025 Refill [facility] [address] [place] [address] Tala Anderson NP Stomach pain 02/04/2025 Population Health Risk Score [facility] Department [address] [place] [phone] Provider, Population Health Generic 01/26/2025 Telephone [facility] [address] [place] [address] Tala Anderson NP No Show 01/25/2025 Telephone [facility] [address] [place] [address] Tala Anderson NP telephone call 01/20/2025 Telephone [facility] [address] [place] [address] Tala Anderson NP chartprep 01/05/2025 Refill [facility] [address] [place] [address] Tala Anderson NP Epigastric pain; Neuropathy; Stomach pain; PTSD (post-traumatic stress disorder) 01/05/2025 Refill [facility] [address] [place] [address] Tala Anderson NP Neuropathy; Epigastric pain 12/07/2024 Refill [facility] [address] [place] [address] Ward Silva MD Stomach pain 12/07/2024 Refill [facility] [address] [place] [address] Tala Anderson NP PTSD (post-traumatic stress disorder) 12/07/2024 Telephone [facility] [address] [place] [address] Tala Anderson NP Med Refill 12/07/2024 Telephone [facility] [address] [place] [address] Tala Anderson NP Med Refill 12/06/2024 Refill [facility] [address] [place] [address] Tala Anderson NP Neuropathy; PTSD (post-traumatic stress disorder) 12/06/2024 Refill [facility] [address] [place] [address] Name, MD Ward Stomach pain from Last 3 Months Family History Medical [...] housing situation today? I have crowlatrell serna 02/16/[address] you [...] A1C 03/17/2025 024, 03/08/2021, 03/08/2021 Depression Monitoring 08/19/2025 02/16/2025 , 02/16/2025 Alcohol/Substance Use Screening 09/13/2025 09/13/2024 Depression [...] Procedure Name Priority Date/Time Associated Diagnosis Comments RETICULOCYTE COUNT Routine 02/28/2025 3: 11 PM EDT Anemia, unspecified type FERRITIN Routine 02/28/2025 3:11 PM EDT Anemia, unspecified type IRON AND TOTAL IRON BINDING CAPACITY Routine 02/28/2025 3:11 PM EDT Anemia, unspecified type APTT Routine 02/28/2025 3:11 PM EDT Pre-op [...] Blood Count 5.0 4.8 - 10.8 X10*3/uL [facility] Red Blood Count 3.58(L) 4.20 - 5.50 X10*6/uL [facility] Hemoglobin 9.6(L) 12.0 - 16.0 g/dl [facility] Hematocrit 31.4(L) 37.0 - 47.0 % [facility] Mean Corpuscular Volume 87.7 80.0 - 98.0 fL [facility] Mean Corpuscular Hemoglobin 26.8(L) 27.0 - 33.0 pg [facility] Mean Corpuscular HGB Conc 30.6(L) 31.0 - 35.0 g/dl [facility] Red Cell Distribution Width 15.1 11.0 - 16.0 % [facility] Platelet Count 274 160 - 400 X10*3/uL [facility] Mean Platelet Volume 11.6 9.4 - 12.3 fL [facility] Neutrophils Percent Auto 45.6 45 - 73 % [facility] Imm Gran Pct Auto 0.2 0.0 - 0.4 % [facility] Lymphocytes Percent Auto 35.8 20 - 40 % [facility] Monocytes Percent Auto 11.8(H) 2 - 11 % [facility] Eosinophils Percent Auto 5.8(H) 0 - 4 % [facility] Basophils Percent Auto 0.8 0 - 2 % [facility] NRBC Pct Auto 0.0 0.0 - 0.2 /100WBC [facility] Neutrophils Absolute Auto 2.3 2.0 - 8.3 x10*3/uL [facility] Imm Gran Abs Auto 0.01 0.00 - 0.03 X10*3/uL [facility] Lymphocytes Absolute Auto 1.8 1.2 - 4.9 X10*3/uL [facility] Monocytes Absolute Auto 0.6 0.1 - 1.2 X10*3/uL [facility] Eosinophils Absolute Auto 0.3 0.0 - 0.4 X10*3/uL [facility] Basophils Absolute Auto 0.0 0.0 - 0.2 X10*3/uL [facility] NRBC Abs Auto 0.000 0.0 - 0.012 X10*3/uL [facility] Blood Venous blood specimen / Unknown 02/28/2025 3:11 PM EDT 02/28/2025 4:07 PM EDT us Tala Anderson AUTOMOTIVE TIRE TECHNICIAN LAB BLOOD ORDERABLES Final Resu lt [facility] [address] [place] [address] [phone] * (ABNORMAL) Iron And Total Iron Binding Capacity (02/28/2025 3:11 PM EDT) Iron 30 30 - 160 mcg/dL [facility] Total Iron Binding Capacity 324 228 - 428 mcg/dL [facility] Percent Iron Saturation 9(L) 15 - 50 % [facility] Unsaturated Iron Binding 294 ug/dL [facility] Blood Venous blood specimen / Unknown 02/28/2025 3:11 PM EDT 02/28/2025 4:[address] [facility] AUTOMOTIVE TIRE TECHNICIAN LAB BLOOD ORDERABLES Final Resu lt Performing Organization Address [facility] de Phone Number [facility] [address] [place] [phone] * Partial Thromboplastin Time, Activated (APTT) (02/28/2025 3:11 PM EDT) Partial Thromboplastin Time 27.8 26.0 - 36.8 SEC [facility] Comment:For information rega rding the monitoring of direct thrombininhibitors, please refer to Pharmacy. Blood Venous blood specimen / Unknown 02/28/2025 3:11 PM EDT 02/28/2025 4:[address] [facility] AUTOMOTIVE TIRE TECHNICIAN LAB BLOOD ORDERABLES Final Resu Performing Organization Address [facility] de Phone Number [facility] [address] [place] [phone] * Prothrombin Time-INR (02/28/2025 3:11 PM EDT) Prothrombin Time 11.5 10.9 - 12.4 SEC [facility] INTERNATIONAL NORM RATIO 1.0 0.9 - 1.1 [facility] Comment:INTERNATIONAL NORMAL IZED RATIO (INR) REFERENCE [...] 3:11 PM EDT 02/28/2025 4:[address] [facility] AUTOMOTIVE TIRE TECHNICIAN LAB BLOOD ORDERABLES Final Resu lt Performing Organization Address [facility] de Phone Number [facility] [address] [place] [address] [phone] * (ABNORMAL) Reticulocyte Count (02/28/2025 3:11 PM EDT) Reticulocytes Absolute 0.026 0.026 - 0.095 X10*6/uL [facility] Immature Retic Fraction 4.0 3.0 - 15.9 % [facility] Retic HGB Equivalent 27.9(L) 30.0 - 35.0 pg [facility] Reticulocyte Percent 0.7 0.5 - 1.8 % [facility] Blood Venous blood specimen / Unknown 02/28/2025 3:11 PM EDT 02/28/2025 4:07 PM EDT [facility] LAB BLOOD ORDERABLES Final Resu lt Performing Organization Address [facility] de Phone Number [facility] [address] [place] [phone] * (ABNORMAL) Ferritin (02/28/2025 3:11 PM EDT) Ferritin 6(L) 10 - 250 ng/mL [facility] Blood Venous blood specimen / Unknown 02/28/2025 3:11 PM EDT 02/28/2025 4:07 PM EDT [facility] LAB BLOOD ORDERABLES Final Resu lt Performing Organization Address [facility] de Phone Number [facility] [address] [place] [address] [phone] * (ABNORMAL) Comprehensive Metabolic Panel (02/28/2025 3:11 PM EDT) Sodium 141 135 - 145 mmol/L [facility] Potassium 4.1 3.3 - 5.1 mmol/L [facility] Chloride 111(H) 96 - 108 mmol/L [facility] Carbon Dioxide 25 22 - 29 mmol/L [facility] Anion Gap 9(L) 12 - 20 [facility] Urea Nitrogen (BUN) 16 9 - 16 mg/dL [facility] Creatinine, Serum 0.74 0.5 - 1.4 mg/dL [facility] Estimated Glomerular Filt Rate >60 [facility] Comment:Chronic Kidney Disea se: Estimated GFR < 60 mL/min/1.87m8Isusxl Kidney Disease: Estimated GFR < 15 mL/min/1.73m2 Glucose 80 60 - 115 mg/dL [facility] Calcium 8.8 8.4 - 10.2 mg/dL [facility] Bilirubin, Total 0.3 0.0 - 1.0 mg/dL [facility] Aspartate Amino Transferase 22 5 - 31 U/L [facility] Alanine Aminotransferase 22 0 - 31 U/L [facility] Total Protein 6.7 6.5 - 8.0 g/dL [facility] Albumin Level 3.7 3.5 - 5.0 g/dL [facility] Alkaline Phosphatase 50 39 - 117 U/L [facility] Blood Venous blood specimen / Unknown 02/28/2025 3:11 PM EDT 02/28/2025 4:07 PM EDT us Tala Anderson AUTOMOTIVE TIRE TECHNICIAN LAB BLOOD ORDERABLES Final Resu lt [facility] [address] [place] [address] [phone] * (ABNORMAL) POCT PANDA-14 Urine Drug Screen (02/15/2025 12:21 PM EDT) QC Media Lot # [id number] Lot# Expiration Date Urine Urine specimen obtained by clean catch procedure / Unknown 02/15/2025 12:21 PM EDT Shira Cummings MD POINT OF CARE TEST EN TER/EDIT ORDERABLES Final Result * [facility]in[facility] Imaging Pap and HPV mRNA E6/E7 (09/13/2024 11:44 AM EDT) HPV nRNA E6/E7 Not Detected Not Detected [facility] Comment:Methodology: Transcr iption-Mediated AmplificationThis assay detects E6/E7 viral messenger RNA (mRNA) from 14high-risk HPV types (16,18,31,33,35,39,45,51,52,56,58,59,66,68).Cervical sources are required for HPV testing.If a vaginal source from a patient who has had atotal hysterectomy with removal of cervix wassubmitted, please contact the testing laboratoryfor alternative testing options.For additional information, please refer [email or web address]/[email or web address](This link if provided for information/educational purposes only.)THIS TEST WAS PERFORMED AT:[facility] [place] [phone] BOSS MD SOURCE: SEE NOTE [facility] Comment:Cervix Report Status: TNP [facility] Clinical Information: SEE NOTE [facility] Comment:None given LMP: SEE NOTE [facility] Comment:[id number] Prev. PAP: SEE NOTE [facility] Comment:NONE GIVEN Prev. BX: SEE NOTE [facility] Comment:NONE GIVEN Statement Of Adequacy: SEE NOTE [facility] Comment:Satisfactory for rocío luation.Endocervical/transformation zone componentpresent. General Categorization: TNP [facility] Interpretation/Result: SEE NOTE [facility] Comment:Cytology Results: Ne gative for intraepitheliallesion or malignancy. Cytology Comment SEE NOTE [facility] Comment:This Pap test has be en evaluated with computerassisted technology. Classification Case Manager: SEE NOTE [facility] Comment:RMM, CT(ASCP)CT scre ening location: [address] [address] Review Classification Case Manager: [facility] Pathologist [facility] PAP Infection [facility] See Note SEE NOTE [facility] Comment:EXPLANATORY NOTE:The Pap is a screening test for cervical cancer. It isnot a diagnostic test and is subject to false negativeand false positive results. It is most reliable when asatisfactory sample, regularly obtained, is submittedwith relevant clinical findings and history, and whenthe Pap result is evaluated along with historic andcurrent clinical information. 09/13/2024 11:4 4 AM EDT 09/13/2024 5:36 PM EDT Narrative [facility] - 09/16/2024 10:53 AM EDT SEE SCANNED RESULTS IN EMRCERVIX [facility] LAB PATHOLOGY ORDERABLES Final Result Performing Organization Address [facility] de Phone Number [facility] [address] [place] [phone] * Hepatitis C Antibody with Reflex to HCV, RNA, Quantitative, Real-Time PCR (05/14/2024 4:23 PM EDT) Hepatitis C Antibody Nonreactive Nonreactive [facility] Comment:Antibodies to HCV no t detected; does not exclude early acuteHCV infection. Blood Venous blood specimen / Unknown 05/14/2024 4:23 PM EDT 05/14/2024 5:[address] [facility] AUTOMOTIVE TIRE TECHNICIAN LAB BLOOD ORDERABLES Final Resu lt Performing Organization Address [facility] de Phone Number [facility] [address] [place] [phone] * HIV-1/2 Antigen and Antibodies, Fourth Generation, with Reflexes (05/14/2024 4:23 PM EDT) HIV AB/AG Nonreactive Nonreactive [facility] Comment:HIV-1 p24 Ag and/or HIV-1/HIV-2 Ab not detected.A test result that is nonreactive does not exclude thepossibility of exposure to or infection with HIV-1 and/orHIV-2. Nonreactive results in this assay for individualswith prior exposure to HIV-1 and/or HIV-2 may be due toantigen and antibody levels that are below the limit ofdetection of this assay.The [employer] HIV Ag/Ab Combo assay result andsupplemental assay results should be interpreted inconjunction with the patient's clinical presentation,history and other laboratory results. If the results areinconsistent with clinical evidence, additional testing issuggested to confirm the result. Blood Venous blood specimen / Unknown 05/14/2024 4:23 PM EDT 05/14/2024 5:42 PM EDT us Tala Anderson NP LAB BLOOD ORDERABLES Final Resu lt [facility] [address] [place] [phone] * Hemoglobin A1c (03/17/2024 9:47 AM EDT) Hemoglobin A1c 5.8 <6.0 % [facility] Comment:Hemoglobin A1C Refer ence Range Adults: 4.8 - 6.0 % Non diabetic: < 6.0 % Goal: < 7.0 %Additional Action Suggested: > 8.0 %Note: Hemoglobin A1c results are invalid for patients with abnormal amounts of HbF. Blood transfusions may impact the HbA1c concentration in the patient sample. Estimated Average Glucose 120 mg/dL [facility] Comment:eAG = Estimated ave rage glucose which is %A1C expressed asaverage glucose, using the formula of the W9P-PddqakyVnkjdsl Glucose study (ADAG), Diabetes Care, Vol.31,#8,Jun. 2007 Blood Venous blood specimen / Unknown 03/17/2024 9:47 AM EDT 03/17/2024 11:22 AM EDT us Tala Anderson NP LAB BLOOD ORDERABLES Final Resu lt [facility] [address] [place] [address] [phone] from Last 3 Months or Most Recently Relevant to Health Maintenance Insurance STANDARD Care Teams Information Developer Relationship Specialty Start Date End Date Tala Anderson NP [address] [place] [phone] PCP - General Family Medicine 08/29/23
--- OUTSIDE RECORDS SUMMARY | 2025-03-03 17:57 | XMS_ITS | Encounter Summary ---
Author Organization [employer] [facility] Address [address] [place] [address] 7 [place] [address] Care Team Providers Care Strike Operations Officer Name Role Phone Gin Colby Primary Care Provider [phone] Tala Anderson NP Primary Care Provider [phone] Reason for Visit * Reason Onset Date Comments Medication Question 06/11/2023 Encounter Details Date Type Department Care Team (Late st Contact Info) Description 06/11/2023 Telephone [facility] [address] [place] [phone] Gin Colby FNP [address] [place] [address] Dept [place] [address] Medication Question Social History Tobacco Use Types [...] to that process. Please contact pt at [phone] (Polish speaker) documented in this encounter Plan of Treatment Not on file documented as of this encounter Visit Diagnoses Not on filedocumented in this encounter Additional Health Concerns Assessment Noted Time PHQ-9 Depression Total Score: 10 023 11:00 AM EDT documented as of this encounter Care Teams Strike Operations Officer Relationship Specialty Start Date End Date Gin Colby FNP PCP - General Family Medicine 07/18/22 08/28/23 Tala Anderson NP [address] [place] [phone] PCP - General Family Medicine 08/29/23 documented as of this encounter
--- OUTSIDE RECORDS SUMMARY | 2025-03-03 17:58 | XMS_ITS | Encounter Summary ---
Author Organization [employer] [facility] [facility] Address [address] [facility] [address]t [place] [address] Care Team Providers Care Watermaster Name Role Phone Tala Anderson NP Primary Care Provider [phone] Reason for Visit * Reason Onset Date Comments Med Refill 12/07/2024 Encounter Details Date Type Department Care Team ([facility] st Contact Info) Description 12/07/2024 Telephone [facility] [address] [place] [address] Tala Anderson NP [address] [place] [address] Med Refill Social History Tobacco Use Types [...] 1:50 PM EST Gabapentin was sent to [facility] #[id number] on 11/10/24 with 1 refill and Ambien sold on 11/18/24 #28 to soon for refill. ACCOUNTING CLERK checked on 12/07/24. * Telephone Encounter - Sharyn Art - 12/07/2024 1:09 PM EST TC from pt requesting medication refill. Medications needing refill : zolpidem (Ambien) 10 MG tablet gabapentin (Neurontin) 300 MG capsule To be sent to: [id number] documented in this encounter Plan of Treatment Not on file documented as of this encounter Visit Diagnoses Not on filedocumented in this encounter Additional Health Concerns Assessment Noted Time PHQ-9 Depression Total Score: 0 01/28/20 24 2:14 PM EST documented as of this encounter Care Teams Watermaster Relationship Specialty Start Date End Date Tala Anderson NP [address] [place] [phone] PCP - General Family Medicine 08/29/23 documented as of this encounter
--- OUTSIDE RECORDS SUMMARY | 2025-03-03 17:58 | XMS_ITS | Encounter Summary ---
Author Organization [employer] [facility] Address [address] [place] [address] Care Team Providers Care Resistance Machine Welder Setter Name Role Phone Tala Anderson NP Primary Care Provider [phone] Encounter Details Date Type Department Care Team (Late st Contact Info) Description 03/01/2025 Orders Only [facility] [address] [place] [address] Tala Anderson NP [address] [place] [address] Anemia, unspecified type (Primary Dx) Social History Tobacco Use Types [...] as of this encounter Plan of Treatment Scheduled Orders Name Type Priority Associated Diagnoses Orde r Schedule Vitamin B12 (Cobalamin) and Folate Panel, Serum Lab Routine Anemia, unspecified type Expected: 03/01/2025 (Approximate), Expires: 03/01/2026 documented as of this encounter Procedures Procedure Name Priority Date/Time Associated Diagnosis Comments IRON AND TOTAL IRON BINDING CAPACITY Routine 02/28/2025 3:11 PM EDT Anemia, unspecified type RETICULOCYTE COUNT Routine 02/28/2025 3: 11 PM EDT Anemia, unspecified type FERRITIN Routine 02/28/2025 3:11 PM EDT Anemia, unspecified type documented in this encounter Results * (ABNORMAL) Reticulocyte Count (02/28/2025 3:11 PM EDT) Reticulocytes Absolute 0.026 0.026 - 0.095 X10*6/uL [facility] Immature Retic Fraction 4.0 3.0 - 15.9 % [facility] Retic HGB Equivalent 27.9(L) 30.0 - 35.0 pg [facility] Reticulocyte Percent 0.7 0.5 - 1.8 % [facility] Blood Venous blood specimen / Unknown 02/28/2025 3:11 PM EDT 02/28/2025 4:07 PM EDT us Tala Verdugo CLINICAL PRACTICE CONSULTANT LAB BLOOD ORDERABLES Final Resu lt Performing Organization Address [facility]/ZIP Co de Phone Number [facility] [address] [place] [phone] [phone] * (ABNORMAL) Ferritin (02/28/2025 3:11 PM EDT) Ferritin 6(L) 10 - 250 ng/mL [facility] Blood Venous blood specimen / Unknown 02/28/2025 3:11 PM EDT 02/28/2025 4:07 PM EDT Tala Verdugo CLINICAL PRACTICE CONSULTANT LAB BLOOD ORDERABLES Final Resu lt Performing Organization Address [facility] de Phone Number [facility] [address] [place] [address] [phone] * (ABNORMAL) Iron And Total Iron Binding Capacity (02/28/2025 3:11 PM EDT) Iron 30 30 - 160 mcg/dL [facility] Total Iron Binding Capacity 324 228 - 428 mcg/dL [facility] Percent Iron Saturation 9(L) 15 - 50 % [facility] Unsaturated Iron Binding 294 ug/dL [facility] Blood Venous blood specimen / Unknown 02/28/2025 3:11 PM EDT 02/28/2025 4:07 PM EDT Tala Verdugo CLINICAL PRACTICE CONSULTANT LAB BLOOD ORDERABLES Final Resu lt Performing Organization Address [facility] Co de Phone Number [facility] [address] [place] [address] [phone] documented in this encounter Visit Diagnoses Diagnosis Anemia, unspecified type- Primary documented in this encounter Additional Health Concerns Assessment Noted Time PHQ-9 Depression Total Score: 15 025 11:34 AM EDT documented as of this encounter Care Teams Resistance Machine Welder Setter Relationship Specialty Start Date End Date Tala Anderson NP [address] [place] [address] PCP - General Family Medicine 08/29/23 documented as of this encounter
--- OUTSIDE RECORDS SUMMARY | 2025-03-03 17:58 | XMS_ITS | Encounter Summary ---
Author Organization [employer] [facility] Address [address] [facility] 7t [place] [address] Care Team Providers Care Park Interpretive Specialist Name Role Phone Tala Anderson LINDA Primary Care Provider [phone] Reason for Visit * Reason Comments Med Refill Encounter Details Date Type Department Care Team ([facility] st Contact Info) Description 11/26/2024 Refill [facility] [address] [place], [place] [id number] Name, MD Ward [address] [place] [address] Stomach pain Social History Tobacco Use Types [...] documented as of this encounter Care Teams Park Interpretive Specialist Relationship Specialty Start Date End Date Tala Anderson NP [address] [place] [id number] PCP - General Family Medicine 08/29/23 documented as of this encounter
--- OUTSIDE RECORDS SUMMARY | 2025-03-03 17:58 | XMS_ITS | Encounter Summary ---
Author Organization [employer] [facility] Address [address] [facility] 7t [place] [address] Care Team Providers Care Board Design Engineer Name Role Phone Tala Anderson NP Primary Care Provider [phone] Reason for Visit * Reason Onset Date Comments Med Refill 12/06/2024 Encounter Details Date Type Department Care Team (Late st Contact Info) Description 12/06/2024 Refill [facility] MED[facility]INE [address] [place] [address] Tala Anderson NP [address] [place] [address] Neuropathy; PTSD (post-traumatic stress disorder) Social History [...] documented as of this encounter Care Teams Board Design Engineer Relationship Specialty Start Date End Date Tala Anderson NP [address] [place] [id number] PCP - General Family Medicine 08/29/23 documented as of this encounter
--- OUTSIDE RECORDS SUMMARY | 2025-03-03 17:58 | XMS_ITS | Encounter Summary ---
Author Organization [employer] [facility] Address [address] [facility] 7t [place] [address] Care Team Providers Care Hand Tool Lapper Name Role Phone Tala Anderson LINDA Primary Care Provider [phone] Reason for Visit * Reason Comments Med Refill Encounter Details Date Type Department Care Team ([facility] st Contact Info) Description 12/07/2024 Refill [facility] MED[facility]INE [address] [place], [place] [phone] Name, MD Ward [address] [place] [address] Stomach pain Social History Tobacco Use Types [...] documented as of this encounter Care Teams Hand Tool Lapper Relationship Specialty Start Date End Date Tala Anderson NP [address] [place] [id number] PCP - General Family Medicine 08/29/23 documented as of this encounter
--- OUTSIDE RECORDS SUMMARY | 2025-03-03 17:58 | XMS_ITS | Encounter Summary ---
Author Organization [employer] [facility] Address [address] [facility] 7t [place] [address] Care Team Providers Care Commercial Pest Control Representative Name Role Phone Tala Anderson NP Primary Care Provider Reason for Visit * Reason Onset Date Comments Need new order 03/01/2025 Encounter Details Date Type Department Care Team ([facility] st Contact Info) Description 03/01/2025 Telephone [facility] MED[facility]INE [address] [place] [address] Tala Anderson NP [address] [place] [address] Need new order Social History Tobacco Use Types Packs/Day Years [...] Telephone Encounter - Dara Shrestha RN - 03/01/2025 1:11 PM EDT TC x 2 placed to pt via [employer] sidewalk inspector ([employer] ID#[id number]) to inform pt they will need to go to lab to have B12 and folate panel drawn. Provider placed labs this morning. No answer, LVM to call office back and ask to speak to the [place] team nurses. * Telephone Encounter - Diane Weston MA - 03/01/2025 12:23 PM EDT Incoming call from [facility] to notify that the blood work added to the drawn from yesterday, they weren't able to perform the B-12 and Folate panel because that didn't have the appropriate tube. Pt needs to be re drawn with a new order. documented in this encounter Plan of Treatment Not on file documented as of this encounter Visit Diagnoses Not on filedocumented in this encounter Additional Health Concerns Assessment Noted Time PHQ-9 Depression Total Score: 15 025 11:34 AM EDT documented as of this encounter Care Teams Commercial Pest Control Representative Relationship Specialty Start Date End Date Tala Anderson NP [address] [place] [address] PCP - General Family Medicine 08/29/23 documented as of this encounter
--- OUTSIDE RECORDS SUMMARY | 2025-03-03 17:58 | XMS_ITS | Encounter Summary ---
Author Organization [employer] Address [address] [place] [address] 7t [place] [address] Care Team Providers Care Fur Finisher Name Role Phone Tala Anderson NP Primary Care Provider [phone] Reason for Visit * Reason Comments Med Refill Encounter Details Date Type Department Care Team ([facility] st Contact Info) Description 12/03/2023 Refill [facility] [address] [place] [address] Deon Hale FNP PTSD (post-traumatic stress disorder) [...] documented as of this encounter Care Teams Fur Finisher Relationship Specialty Start Date End Date Tala Anderson NP [address] [place] [id number] PCP - General Family Medicine 08/29/23 documented as of this encounter
--- OUTSIDE RECORDS SUMMARY | 2025-03-03 17:58 | XMS_ITS | Encounter Summary ---
Author Organization [employer] [facility] Address [address] [place] [address] 7 [place] [address] Care Team Providers Care Legal Activity Adjudicator Name Role Phone Tala Anderson LINDA Primary Care Provider [phone] Reason for Visit * Reason Onset Date Comments Med Refill Appointment 09/22/2023 - [facility] Encounter Details Date Type Department Care Team (Late st Contact Info) Description 09/22/2023 Refill [facility] [address] [place] [address] Deon Hale FNP PTSD (post-traumatic stress disorder); [...] documented as of this encounter Care Teams Legal Activity Adjudicator Relationship Specialty Start Date End Date Tala Anderson NP [address] [place] [address] PCP - General Family Medicine 08/29/23 documented as of this encounter
--- OUTSIDE RECORDS SUMMARY | 2025-03-03 17:58 | XMS_ITS | Encounter Summary ---
Author Organization [employer] [facility] Address [address] [facility] 7t [place] [address] Care Team Providers Care Design Technology Professor Name Role Phone Tala Anderson NP Primary Care Provider [phone] Reason for Visit * Reason Onset Date Comments Med Refill 12/07/2024 Encounter Details Date Type Department Care Team ([facility] st Contact Info) Description 12/07/2024 Telephone [facility] MEDICINE [address] [place] [address] Tala Anderson NP [address] [place] [address] Med Refill Social History Tobacco Use Types [...] 50 MG tablet To be sent to: [id number] documented in this encounter Plan of Treatment Not on file documented as of this encounter Visit Diagnoses Not on filedocumented in this encounter Additional Health Concerns Assessment Noted Time PHQ-9 Depression Total Score: 0 01/28/20 24 2:14 PM EST documented as of this encounter Care Teams Design Technology Professor Relationship Specialty Start Date End Date Tala Anderson NP [address] [place] [id number] PCP - General Family Medicine 08/29/23 documented as of this encounter
== END 2025-03-03 16:00 | disposition home or self-care (01) ==
LOC: HO.MAMMO 15:59
PROVIDERS: PCP Nurse Practitioner; Visit Provider Nurse Practitioner
DX: Z12.31 Encounter for screening mammogram for malignant neoplasm of breast (principal)
CPT/HCPCS: 77063; 77067

== ENCOUNTER → 2025-03-03 16:00 | Outpatient (BNV) | payer MEDICAID, SELFPAY | PROVIDERS: PCP Nurse Practitioner; Visit Provider Internal Medicine | DX: Z12.31 Encounter for screening mammogram for malignant neoplasm of breast (principal) | CPT/HCPCS: 77063; 77067 ==

== ENCOUNTER 2025-06-09 17:38 | Outpatient (REF) | payer MEDICAID, SELFPAY | END 2025-06-09 17:39 | disposition home or self-care (01) | LOC: HO.LNP 17:38 | PROVIDERS: Visit Provider Nurse Practitioner | DX: Z79.891 Long term (current) use of opiate analgesic (principal) | CPT/HCPCS: 80353; 80358 ==

== ENCOUNTER 2025-07-22 16:16 | Outpatient (REF) | payer MEDICAID, SELFPAY ==
[2025-07-22 17:26] LABS: MANUAL DIFF FLAG NO
[2025-07-22 17:36] LABS: Hematocrit 30.4 % (37.0-47.0); Hemoglobin 10.1 g/dl (12.0-16.0); Imm Gran Abs Auto 0.02 X10*3/uL (0.00-0.03); Imm Gran Pct Auto 0.3 % (0.0-0.4); Lymphocytes Absolute Auto 1.7 X10*3/uL (1.2-4.9); Mean Corpuscular HGB Conc 33.2 g/dl (31.0-35.0); Mean Corpuscular Hemoglobin 29.3 pg (27.0-33.0); Mean Corpuscular Volume 88.1 fL (80.0-98.0); NRBC Abs Auto 0.000 X10*3/uL (0.0-0.012); NRBC Pct Auto 0.0 /100WBC (0.0-0.2); Platelet Count 224 X10*3/uL (160-400); Red Blood Count 3.45 X10*6/uL (4.20-5.50); White Blood Count 6.4 X10*3/uL (4.8-10.8)
[2025-07-22 18:33] LABS: Iron 69 mcg/dL (30-160); Percent Iron Saturation 32 % (15-50); Total Iron Binding Capacity 213 mcg/dL (228-428); Unsaturated Iron Binding 144 ug/dL
== END 2025-07-22 16:17 | disposition home or self-care (01) ==
LOC: HO.HHCL 16:16
PROVIDERS: PCP Nurse Practitioner; Visit Provider Nurse Practitioner
DX: Z13.89 Encounter for screening for other disorder (principal)
CPT/HCPCS: 36415; 83540; 84443; 85025